=== PATIENT | male | born 1980 | race Caucasian/White ===

== ENCOUNTER 2020-06-09 09:41 | Outpatient (REF) | payer OTHER, SELFPAY | END 2020-06-09 09:42 | disposition home or self-care (01) | LOC: HO.LAB 09:41 | PROVIDERS: Visit Provider Internal Medicine | DX: Z20.822 Contact with and (suspected) exposure to COVID-19 (principal) | CPT/HCPCS: 36415; C9803; U0003 ==

== ENCOUNTER 2021-02-03 04:13 | Emergency (ER) | payer OTHER, SELFPAY ==
[2021-02-03 04:19] VITALS: BP 147/104; BP 170/90; PULSE 60; PULSE 87; RESP 16; TEMP 36.8; O2SAT 100; O2SAT 99; BMI 24.0
--- NOTE | 2021-02-03 04:34 | PC.NURSE ---
Call made to [facility] transfer center at the request of Dr Winn. Transfer center informed me that [facility] is on auto-decline for all patients. At my request, someone from [facility] hand team will be in contact with Dr. Winn.
[2021-02-03 05:11] LABS: Basophils Percent Auto 0.3 % (0-2); Eosinophils Absolute Auto 0.1 X10*3/uL (0.0-0.4); Hemoglobin 8.8 g/dl (14.0-18.0); Imm Gran Abs Auto 0.05 X10*3/uL (0.00-0.03); Imm Gran Pct Auto 0.5 % (0.0-0.4); Lymphocytes Absolute Auto 2.1 X10*3/uL (1.2-4.9); Lymphocytes Percent Auto 21.9 % (20-40); MANUAL DIFF FLAG NO; Mean Corpuscular HGB Conc 33.8 g/dl (31.0-36.0); Mean Corpuscular Hemoglobin 30.9 pg (27.0-33.0); Mean Corpuscular Volume 91.2 fL (80-98); Mean Platelet Volume 8.8 fL (9.4-12.4); Monocytes Absolute Auto 0.7 X10*3/uL (0.1-1.2); Monocytes Percent Auto 7.9 % (2-11); Neutrophils Absolute Auto 6.4 X10*3/uL (2.0-8.3); Neutrophils Percent Auto 68.4 % (45-73); Platelet Count 554 X10*3/uL (160-400); Red Blood Count 2.85 X10*6/uL (4.60-5.80); Red Cell Distribution Width 13.3 % (11.0-16.0); White Blood Count 9.4 X10*3/uL (4.8-10.8)
[2021-02-03 05:16] LABS: Prothrombin Time 11.8 SEC (9.9-13.0)
[2021-02-03 05:28] LABS: Alanine Aminotransferase 45 U/L (0-40); Albumin Level 3.8 g/dL (3.5-5.0); Alkaline Phosphatase 75 U/L (39-117); Anion Gap 13 (12-20); Aspartate Amino Transferase 24 U/L (5-37); Bilirubin Total 0.4 mg/dL (0.0-1.0); Blood Urea Nitrogen 22 mg/dL (9-16); COVID-19 Test Negative (Negative); Calcium 8.9 mg/dL (8.4-10.2); Carbon Dioxide 25 mmol/L (22-29); Chloride 102 mmol/L (96-108); Creatinine Clr Calc Pharmacy 110.3; Estimated Glomerular Filt Rate > 60; Glucose Random 86 mg/dL (60-115); IDNOW Serial# 9DD0AD1C; Potassium 3.9 mmol/L (3.3-5.1); Sodium 136 mmol/L (135-145); Total Protein 6.3 g/dL (6.5-8.0)
[2021-02-03 06:00] VITALS: BP 93/56; PULSE 64; RESP 16; O2SAT 100
--- NOTE | 2021-02-03 06:35 | PC.NURSE ---
Patient's finger is still black but started to pink up in one area. It is also beginning to smell and gases are building up under the skin. Patient to be transferred to [facility] for admission
--- NOTE | 2021-02-03 06:36 | ED.EXTPRO ---
HPI - Extremity Problem General Chief complaint: Extremity Injury, Lower Stated complaint: fingers discolored s/p reattachment Time Seen by Provider: 02/03/21 04:45 Source: patient Mode of arrival: EMS History of Present Illness HPI Narrative: 40-year-old male who presents via EMS with concerns about acute onset of blackness of his middle finger which patient states occurred while he was asleep. Prior history is that patient is fingers were cut off in a traumatic injury involving a table saw and his index and middle finger were reattached at [facility]. Patient states that his course his been going well and that he was discharged yesterday and states that he fell asleep but denies having fallen asleep on the left upper extremity and states that when he woke up he noticed that his middle finger was black in color. He denies any fevers chills. Related Data Allergies Allergy/AdvReac Type Severity Reaction Status Date / Time peanut oil [PEANUT OIL] Allergy Unknown THROAT Unverified 02/06/20 17:54 SWEELING/RASH Review of Systems Review of Systems: Pertinent positives and negatives as stated in HPI 10 point review systems otherwise negative. PMFSH Past Medical History Source: nursing notes reviewed Medical History No known health problems Social History Social History Alcohol intake: unknown Patient Tobacco Use Status: Never used Tobacco Use of substances other than those prescribed or required for medical reasons: Unknown Advance Directives: No Physical Exam Vital Signs: Vital Signs: Last Vital Signs Temp 98.3 F 02/03/21 04:19 Pulse 64 02/03/21 06:00 Resp 16 02/03/21 06:00 BP 93/56 L 02/03/21 06:00 Pulse Ox 100 02/03/21 06:00 Body Mass Index 24.0 VITAL SIGNS: Reviewed. GENERAL: Well developed, well nourished, in no acute distress. HEAD: Normocephalic/atraumatic EYES: PERRLA, EOMI LUNGS: Normal breath sounds. No adventitious sounds or accessory muscle use. SpO2<100> CARDIOVASCULAR: Regular rate and rhythm without noted murmurs ABDOMEN: Soft, non-tender, non-distended with bowel sounds. LEFT HAND: Black discoloration noted at the distal aspect of the left middle phalange with extension proximally to the pain that is in place in the PIP, there is no sensation, unable to evaluate vascular refill, and left index finger otherwise appears pink. NEUROLOGIC: Alert and oriented x 4. Course Course Course Narrative: 40-year-old female with history and clinical presentation consistent with possible loss left middle finger, I discussed this case with Dr. Londono at [facility] who accepts transfer in feels that patient may require amputation. MDM - Extremity (Nontraumatic) Lab Data Result diagrams: 02/03/21 05:05 02/03/21 05:05 Labs: Lab Results 02/03/21 02/03/21 02/03/21 Range/Units 05:05 05:05 05:05 WBC 9.4 (4.8-10.8) X10*3/uL RBC 2.85 L (4.60-5.80) X10*6/uL Hgb 8.8 L (14.0-18.0) g/dl Hct 26.0 L (42-52) % MCV 91.2 (80-98) fL MCH 30.9 (27.0-33.0) pg MCHC 33.8 (31.0-36.0) g/dl RDW 13.3 (11.0-16.0) % Plt Count 554 H (160-400) X10*3/uL MPV 8.8 L (9.4-12.4) fL Immature Gran % (Auto) 0.5 H (0.0-0.4) % Neut % (Auto) 68.4 (45-73) % Lymph % (Auto) 21.9 (20-40) % [place] % (Auto) 7.9 (2-11) % Eos % (Auto) 1.0 (0-4) % Baso % (Auto) 0.3 (0-2) % Lymph # (Auto) 2.1 (1.2-4.9) X10*3/uL [place] # (Auto) 0.7 (0.1-1.2) X10*3/uL Eos # (Auto) 0.1 (0.0-0.4) X10*3/uL Baso # (Auto) 0.0 (0.0-0.2) X10*3/uL Abs Immat Gran (auto) 0.05 H (0.00-0.03) X10*3/uL Absolute Neuts (auto) 6.4 (2.0-8.3) X10*3/uL Absolute Nucleated RBC 0.000 (0.0-0.012) X10*3/uL Nucleated RBC % (auto) 0.0 (0.0-0.2) /100WBC PT 11.8 (9.9-13.0) SEC INR 1.0 (0.9-1.1) Sodium (135-145) mmol/L Potassium (3.3-5.1) mmol/L Chloride (96-108) mmol/L Carbon Dioxide (22-29) mmol/L Anion Gap (12-20) BUN (9-16) mg/dL Creatinine (0.5-1.4) mg/dL Estim Creat Clear Calc Estimated GFR Random Glucose (60-115) mg/dL Calcium (8.4-10.2) mg/dL Total Bilirubin (0.0-1.0) mg/dL AST (5-37) U/L ALT (0-40) U/L Alkaline Phosphatase (39-117) U/L Total Protein (6.5-8.0) g/dL Albumin (3.5-5.0) g/dL COVID-19 (REMIGIO) Negative (Negative) COVID-19 Clin Com See Note 02/03/21 Range/Units 05:05 WBC (4.8-10.8) X10*3/uL RBC (4.60-5.80) X10*6/uL Hgb (14.0-18.0) g/dl Hct (42-52) % MCV (80-98) fL MCH (27.0-33.0) pg MCHC (31.0-36.0) g/dl RDW (11.0-16.0) % Plt Count (160-400) X10*3/uL MPV (9.4-12.4) fL Immature Gran % (Auto) (0.0-0.4) % Neut % (Auto) (45-73) % Lymph % (Auto) (20-40) % [place] % (Auto) (2-11) % Eos % (Auto) (0-4) % Baso % (Auto) (0-2) % Lymph # (Auto) (1.2-4.9) X10*3/uL [place] # (Auto) (0.1-1.2) X10*3/uL Eos # (Auto) (0.0-0.4) X10*3/uL Baso # (Auto) (0.0-0.2) X10*3/uL Abs Immat Gran (auto) (0.00-0.03) X10*3/uL Absolute Neuts (auto) (2.0-8.3) X10*3/uL Absolute Nucleated RBC (0.0-0.012) X10*3/uL Nucleated RBC % (auto) (0.0-0.2) /100WBC PT (9.9-13.0) SEC INR (0.9-1.1) Sodium 136 (135-145) mmol/L Potassium 3.9 (3.3-5.1) mmol/L Chloride 102 (96-108) mmol/L Carbon Dioxide 25 (22-29) mmol/L Anion Gap 13 (12-20) BUN 22 H (9-16) mg/dL Creatinine 0.91 (0.5-1.4) mg/dL Estim Creat Clear Calc 110.3 Estimated GFR > 60 Random Glucose 86 (60-115) mg/dL Calcium 8.9 (8.4-10.2) mg/dL Total Bilirubin 0.4 (0.0-1.0) mg/dL AST 24 (5-37) U/L ALT 45 H (0-40) U/L Alkaline Phosphatase 75 (39-117) U/L Total Protein 6.3 L (6.5-8.0) g/dL Albumin 3.8 (3.5-5.0) g/dL COVID-19 (REMIGIO) (Negative) COVID-19 Clin Com Discharge Plan Discharge Clinical Impression: Necrosis of finger Patient Disposition: er [facility] Transfer Details: Threatened finger graft requiring specialty services
[2021-02-03] MEDS: oxyCODONE HCl Immed Release 5 MG TABLET PO (07:50)
== END 2021-02-03 09:06 | disposition short-term general hospital (02) ==
PROVIDERS: Emergency Provider Student in an Organized Health Care Education/Training Program
DX: M79.645 Pain in left finger(s) (principal); Z20.822 Contact with and (suspected) exposure to COVID-19; Z79.899 Other long term (current) drug therapy
CPT/HCPCS: 36415; 80053; 85025; 85610; 87635; 99285

== ENCOUNTER 2021-06-21 15:48 | Emergency (ER) | payer OTHER, SELFPAY | END 2021-06-21 17:25 | disposition left against medical advice (07) | PROVIDERS: Emergency Provider Emergency Medicine | DX: F99 Mental disorder, not otherwise specified (principal) ==

== ENCOUNTER 2022-12-21 12:03 | Emergency (ER) | payer OTHER, SELFPAY ==
--- NOTE | ~2022-12-21 | XR_ITS ---
EXAMINATION: XR CHEST CLINICAL INFORMATION: Chest pain COMPARISON: 01/17/2017 TECHNIQUE: 2 views of the chest were obtained. FINDINGS: Lungs grossly clear. No pleural effusions. Heart and pulmonary vessels normal. XR/XR chest 2V IMPRESSION: No active disease.
[2022-12-21 12:21] VITALS: BP 114/77; BP 138/95; PULSE 69; PULSE 72; RESP 18; TEMP 35.9; O2SAT 97; O2SAT 98; BMI 24.1
--- NOTE | 2022-12-21 12:29 | ECG_ITS ---
Test Reason : CP Blood Pressure : / mmHG Vent. Rate : 063 BPM Atrial Rate : 063 BPM P-R Int : 116 ms QRS Dur : 098 ms QT Int : 420 ms P-R-T Axes : 078 064 064 degrees QTc Int : 429 ms Normal sinus rhythm ST elevation, consider early repolarization Borderline ECG When compared with ECG of 01-MAY-2019 20:22, No significant change was found Referred By: Gayathri Moseley Electronically Signed By:KAYLEEN HOFF
[2022-12-21 12:52] LABS: MANUAL DIFF FLAG NO
[2022-12-21 12:55] LABS: Basophils Percent Auto 0.6 % (0-2); Eosinophils Absolute Auto 0.2 X10*3/uL (0.0-0.4); Eosinophils Percent Auto 2.7 % (0-4); Hematocrit 43.8 % (42.0-52.0); Hemoglobin 15.1 g/dl (14.0-18.0); Imm Gran Abs Auto 0.03 X10*3/uL (0.00-0.03); Imm Gran Pct Auto 0.5 % (0.0-0.4); Lymphocytes Absolute Auto 1.9 X10*3/uL (1.2-4.9); Lymphocytes Percent Auto 29.6 % (20-40); Mean Corpuscular HGB Conc 34.5 g/dl (31.0-36.0); Mean Corpuscular Hemoglobin 30.5 pg (27.0-33.0); Mean Corpuscular Volume 88.5 fL (80.0-98.0); Mean Platelet Volume 9.9 fL (9.4-12.4); Monocytes Absolute Auto 0.7 X10*3/uL (0.1-1.2); Monocytes Percent Auto 10.7 % (2-11); Neutrophils Absolute Auto 3.5 x10*3/uL (2.0-8.3); Neutrophils Percent Auto 55.9 % (45-73); Platelet Count 348 X10*3/uL (160-400); Red Blood Count 4.95 X10*6/uL (4.60-5.80); White Blood Count 6.3 X10*3/uL (4.8-10.8)
--- NOTE | 2022-12-21 13:06 | ED_ITS ---
HPI - General Adult General Chief complaint: General Medical Stated complaint: BODY PAIN/CRAMPS S/P 2TICK BITE 1 WK AGO PER EMS Time Seen by Provider: 12/21/22 16:59 Related Data Previous Rx's Medication Instructions Recorded gabapentin 800 mg tablet 800 mg PO TID #90 tabs 10/27/22 quetiapine 150 mg tablet,extended 150 mg PO BEDTIME #90 tabs 10/27/22 release 24 hr (Seroquel XR) clonazepam 1 mg tablet (Klonopin) 1 mg PO BEDTIME #30 tabs 11/18/22 Allergies Allergy/AdvReac Type Severity Reaction Status Date / Time adhesive tape Allergy Intermediate Hives Verified 12/21/22 12:24 trazodone Allergy Mild Hallucinati Verified 12/21/22 12:24 ons nabumetone AdvReac Intermediate blood in Verified 12/21/22 12:24 stool PMFSH Past Medical History Medical History No known health problems Surgical History History of dental surgery History of hand surgery History of lung surgery Family History Family History Mother Substance use disorder Father Substance use disorder Other Mental health disorder Social History Social History Housing: Other Alcohol intake: current Alcohol intake frequency: holidays/special occasions only Patient Tobacco Use Status: Current everyday Tobacco user Tobacco use type: Cigarette Cigarettes Per Day: 2 e-Cigarette/Vaping Use: Never Used Second Hand Smoke Exposure: Yes Substance Use Type: Marijuana Advance Directives: No Advance Directives Information Provided: No service: No Current occupational status: unemployed Cognitive needs: No Hearing needs: No Vision needs: No Physical Exam ED Vital Signs: Vital Signs - 24 hr 12/21/22 12:21 Temperature 96.7 F L Pulse Rate 69 Respiratory Rate 18 Blood Pressure 114/77 Pulse Oximetry 97 Oxygen Delivery Method Room Air BMI result Body Mass Index 24.1 Course Course Course Narrative: This is an RME: Additional HPI, ROS, PE not included below will be deferred to primary provider. This is a 82-woiy-eht-male with no known medical problems, presenting to the emergency department with complaints of body cramping and body pain x 3 days. He reports that he was bit by a tick 2 weeks ago. Works outside in the heat. Endorsing chest pain. No SOB. Plan: Labs, EKG, Chest xray ordered. Reevaluation(s) Reevaluation #1: Patient eloped prior to being fully evaluated by primary provider in the main emergency department. Medical Decision Making Lab Data 12/21/22 12:46 12/21/22 12:46 Labs: Lab Results 12/21/22 12/21/22 12/21/22 Range/Units 12:46 12:46 12:46 WBC 6.3 (4.8-10.8) X10*3/uL RBC 4.95 (4.60-5.80) X10*6/uL Hgb 15.1 (14.0-18.0) g/dl Hct 43.8 (42.0-52.0) % MCV 88.5 (80.0-98.0) fL MCH 30.5 (27.0-33.0) pg MCHC 34.5 (31.0-36.0) g/dl RDW 12.0 (11.0-16.0) % Plt Count 348 (160-400) X10*3/uL MPV 9.9 (9.4-12.4) fL Immature Gran % (Auto) 0.5 H (0.0-0.4) % Neut % (Auto) 55.9 (45-73) % Lymph % (Auto) 29.6 (20-40) % [place] % (Auto) 10.7 (2-11) % Eos % (Auto) 2.7 (0-4) % Baso % (Auto) 0.6 (0-2) % Lymph # (Auto) 1.9 (1.2-4.9) X10*3/uL [place] # (Auto) 0.7 (0.1-1.2) X10*3/uL Eos # (Auto) 0.2 (0.0-0.4) X10*3/uL Baso # (Auto) 0.0 (0.0-0.2) X10*3/uL Abs Immat Gran (auto) 0.03 (0.00-0.03) X10*3/uL Absolute Neuts (auto) 3.5 (2.0-8.3) x10*3/uL Absolute Nucleated RBC 0.000 (0.0-0.012) X10*3/uL Nucleated RBC % (auto) 0.0 (0.0-0.2) /100WBC Sodium 139 (135-145) mmol/L Potassium 4.0 (3.3-5.1) mmol/L Chloride 106 (96-108) mmol/L Carbon Dioxide 20 L (22-29) mmol/L Anion Gap 17 (12-20) BUN 27 H (9-16) mg/dL Creatinine 1.14 (0.5-1.4) mg/dL Estim Creat Clear Calc 83.5 Estimated GFR > 60 Random Glucose 99 (60-115) mg/dL Calcium 9.2 (8.4-10.2) mg/dL Total Bilirubin 0.7 (0.0-1.0) mg/dL Direct Bilirubin 0.2 (0.0-0.5) mg/dL AST 52 H (5-37) U/L ALT 24 (0-40) U/L Alkaline Phosphatase 94 (39-117) U/L Total Creatine Kinase 1445 H (38-174) U/L Troponin I High Sens < 2.7 (<3.5-35.0) ng/L Total Protein 7.3 (6.5-8.0) g/dL Albumin 4.3 (3.5-5.0) g/dL Lyme Screen IgG & IgM index Lyme Progressive Test 12/21/22 Range/Units 12:46 WBC (4.8-10.8) X10*3/uL RBC (4.60-5.80) X10*6/uL Hgb (14.0-18.0) g/dl Hct (42.0-52.0) % MCV (80.0-98.0) fL MCH (27.0-33.0) pg MCHC (31.0-36.0) g/dl RDW (11.0-16.0) % Plt Count (160-400) X10*3/uL MPV (9.4-12.4) fL Immature Gran % (Auto) (0.0-0.4) % Neut % (Auto) (45-73) % Lymph % (Auto) (20-40) % [place] % (Auto) (2-11) % Eos % (Auto) (0-4) % Baso % (Auto) (0-2) % Lymph # (Auto) (1.2-4.9) X10*3/uL [place] # (Auto) (0.1-1.2) X10*3/uL Eos # (Auto) (0.0-0.4) X10*3/uL Baso # (Auto) (0.0-0.2) X10*3/uL Abs Immat Gran (auto) (0.00-0.03) X10*3/uL Absolute Neuts (auto) (2.0-8.3) x10*3/uL Absolute Nucleated RBC (0.0-0.012) X10*3/uL Nucleated RBC % (auto) (0.0-0.2) /100WBC Sodium (135-145) mmol/L Potassium (3.3-5.1) mmol/L Chloride (96-108) mmol/L Carbon Dioxide (22-29) mmol/L Anion Gap (12-20) BUN (9-16) mg/dL Creatinine (0.5-1.4) mg/dL Estim Creat Clear Calc Estimated GFR Random Glucose (60-115) mg/dL Calcium (8.4-10.2) mg/dL Total Bilirubin (0.0-1.0) mg/dL Direct Bilirubin (0.0-0.5) mg/dL AST (5-37) U/L ALT (0-40) U/L Alkaline Phosphatase (39-117) U/L Total Creatine Kinase (38-174) U/L Troponin I High Sens (<3.5-35.0) ng/L Total Protein (6.5-8.0) g/dL Albumin (3.5-5.0) g/dL Lyme Screen IgG & IgM <0.90 index Lyme Progressive Test TNP Discharge Plan Discharge Clinical Impression: Myalgia Patient Disposition: Elopement Prescriptions: No Action gabapentin 800 mg tablet 800 mg PO TID Qty: 90 0RF quetiapine [Seroquel XR] 150 mg tablet extended release 24 hr 150 mg PO BEDTIME Qty: 90 0RF clonazepam [Klonopin] 1 mg tablet 1 mg PO BEDTIME Qty: 30 0RF Rx Instructions: administer 30 minutes before bedtime Interventions: ED Discharge Assessment Last Done: 12/21/22 17:58 Discharge Date/Time: 12/21/22 17:58
[2022-12-21 13:08] LABS: Alanine Aminotransferase 24 U/L (0-40); Albumin Level 4.3 g/dL (3.5-5.0); Alkaline Phosphatase 94 U/L (39-117); Anion Gap 17 (12-20); Aspartate Amino Transferase 52 U/L (5-37); Bilirubin Direct 0.2 mg/dL (0.0-0.5); Bilirubin Total 0.7 mg/dL (0.0-1.0); Blood Urea Nitrogen 27 mg/dL (9-16); Calcium 9.2 mg/dL (8.4-10.2); Carbon Dioxide 20 mmol/L (22-29); Chloride 106 mmol/L (96-108); Creatinine Clr Calc Pharmacy 83.5; Estimated Glomerular Filt Rate > 60; Glucose Random 99 mg/dL (60-115); Sodium 139 mmol/L (135-145); Total Protein 7.3 g/dL (6.5-8.0)
[2022-12-21 13:18] LABS: Troponin-I High Sensitivity < 2.7 ng/L (<3.5-35.0)
[2022-12-23 03:28] LABS: Lyme Abs Screen <0.90 index
[2022-12-28 12:28] LABS: Babesia IgG <1:64 titer (<1:64); Babesia IgM <1:20 titer (<1:20)
[2023-01-04 13:04] LABS: A. Phagocytophilum Ab IgG <1:64 (<1:64); A. Phagocytophilum Ab IgM <1:20 (<1:20); E. Chaffeensis Ab IgG <1:64 (<1:64); E. Chaffeensis Ab IgM <1:20 (<1:20)
== END 2022-12-21 17:58 | disposition left against medical advice (07) ==
PROVIDERS: Physician Assistant Medical; Emergency Provider Emergency Medicine
DX: R07.89 Other chest pain (principal); M79.10 Myalgia, unspecified site; F17.210 Nicotine dependence, cigarettes, uncomplicated; Z71.6 Tobacco abuse counseling; Z79.899 Other long term (current) drug therapy
CPT/HCPCS: 36415; 71046; 80048; 80076; 82550; 84484; 85025; 86617; 86618; 86666; 86753; 93005; 99283

== ENCOUNTER → 2022-12-21 12:29 | Outpatient (BNV) | payer OTHER, SELFPAY | PROVIDERS: Emergency Provider Emergency Medicine; Visit Provider Internal Medicine | DX: R07.9 Chest pain, unspecified (principal); R94.31 Abnormal electrocardiogram [ECG] [EKG] | CPT/HCPCS: 93010 ==

== ENCOUNTER 2023-01-24 18:25 | Emergency (ER) | payer OTHER, SELFPAY ==
--- NOTE | ~2023-01-24 | CT_ITS ---
EXAMINATION: CT HEAD WITHOUT CONTRAST CLINICAL INFORMATION: Syncope COMPARISON: None available. TECHNIQUE: Contiguous axial imaging was performed from the skull base to vertex without intravenous administration of contrast. This CT examination was performed using dose optimization techniques as appropriate, variously including the following: *Automated exposure control *Adjustment of mA and/or kV according to patient size (this includes techniques or standardized protocols for targeted exams where dose is matched to indication/reason for exam; i.e. extremities or head) *Use of iterative reconstruction technique DLP: 673 mGy-cm FINDINGS: The brain parenchyma has normal attenuation. The escobar-white matter differentiation is well preserved. No evidence of an acute major vascular territory infarction. No intracranial hemorrhage, extra-axial fluid collection, focal mass effect or midline shift. The ventricles have normal size and configuration; no hydrocephalus. The brainstem and cerebellum have a normal appearance. The cerebellar tonsils are in normal position. The calvarium is intact. The visualized paranasal sinuses, mastoid air cells and middle ear cavities are well aerated. The orbits and globes are unremarkable. The temporomandibular joints are normal. CT/CT head/brain wo IV con IMPRESSION: No acute intracranial pathology.
[2023-01-24 18:51] VITALS: BP 162/90; PULSE 88; RESP 18; TEMP 36.9; O2SAT 96; BMI 24.5
--- NOTE | 2023-01-24 18:51 | ED_ITS ---
HPI - General Adult General Chief complaint: Syncope Stated complaint: loc today doing yard work Time Seen by Provider: 01/24/23 20:32 Source: patient Mode of arrival: ambulatory Limitations: no limitations History of Present Illness HPI narrative: patient with history of anxiety, depression with strong family history of seizures but patient never had any seizure was mowing the yd outside for last 3 hours at the end of the moving patient was standing felt lightheaded blurred vision nauseated vomited small amount and then passed out no seizure activity were noticed patient was confused after the passing out episode patient had similar episode a month ago that time patient had elevated CPK with allergic and dizziness not completely passing out patient says drinking water every day and pretty well hydrated does complain of slight leg cramps. Lab workup prior to my evaluation showed elevated BUN 31 creatinine 2.9 CPK of 293 and positive orthostatics patient denies any chest pain or palpitation Related Data Previous Rx's Medication Instructions Recorded quetiapine 150 mg tablet,extended 150 mg PO BEDTIME #90 tabs 10/27/22 release 24 hr (Seroquel XR) clonazepam 1 mg tablet (Klonopin) 1 mg PO BEDTIME #30 tabs 11/18/22 gabapentin 800 mg tablet 800 mg PO TID #90 tabs 12/27/22 Allergies Allergy/AdvReac Type Severity Reaction Status Date / Time adhesive tape Allergy Intermediate Hives Verified 01/24/23 18:51 trazodone Allergy Mild Hallucinati Verified 01/24/23 18:51 ons nabumetone AdvReac Intermediate blood in Verified 01/24/23 18:51 stool Review of Systems 2 Review of Systems: Yes all other systems are reviewed and are negative [facility] Past Medical History Medical History No known health problems Surgical History History of dental surgery History of hand surgery History of lung surgery Family History Family History Mother Substance use disorder Father Substance use disorder Other Mental health disorder Social History Social History Housing: Other Alcohol intake: unknown Patient Tobacco Use Status: Current everyday Tobacco user Tobacco use type: Cigarette Cigarettes Per Day: 2 e-Cigarette/Vaping Use: Never Used Second Hand Smoke Exposure: Yes Substance Use Type: Marijuana Advance Directives: No Advance Directives Information Provided: Yes service: No Current occupational status: unemployed Cognitive needs: No Hearing needs: No Vision needs: No Physical Exam ED Vital Signs: Vital Signs - 24 hr 01/24/23 18:51 01/24/23 20:05 01/24/23 20:07 Temperature 98.5 F 98.0 F Pulse Rate 88 70 75 Respiratory Rate 18 14 Blood Pressure 162/90 H 150/99 H 150/99 H Pulse Oximetry 96 98 Oxygen Delivery Method Room Air Room Air 01/24/23 20:07 01/24/23 20:07 01/24/23 22:55 Temperature 97.7 F Pulse Rate 76 94 76 Respiratory Rate 18 Blood Pressure 135/90 H 108/82 146/76 H Pulse Oximetry 97 Oxygen Delivery Method Room Air BMI result Body Mass Index 24.5 Appearance: Alert. Oriented X3. No acute distress. Eyes: PERRLA, No Nystagmus ENT: Pharynx normal. Oral Mucosa moist Neck: Normal inspection. Neck supple. no midline tenderness CVS: Normal heart rate and rhythm. Pulses normal. Respiratory: No respiratory distress. Equal air entry bilateral, no wheezing/rales/rhonchi Abdomen: Soft and nontender. Bowel sounds are present, no mass palpable, no CVA tenderness Skin: Skin warm and dry. Normal skin color. Normal skin turgor. Extremities: No lower extremity edema. No calf tenderness Neuro: Oriented X 3. No motor deficit. No sensory deficit.No cerebellar signs , cranial nerves II-XII intact Course Course Course Narrative: This is an RME: Additional HPI, ROS, PE not included below will be deferred to primary provider. 42 year old male with syncopal episode. He reports before the episode he became sensitive to light and everything in his vision got red before falling to the ground. Plan: labs, urine, ekg, imaging Medications Administered Discontinued Medications Generic Name Dose Route Start Last Admin Trade Name Freq PRN Reason Stop Dose Admin Sodium Chloride 1,000 mls @ 999 mls/hr 01/24/23 21:18 01/24/23 22:51 Ns IV 01/24/23 22:18 Infused .Q1H1M ONE Infusion Sodium Chloride 1,000 mls @ 999 mls/hr 01/24/23 22:52 01/25/23 00:15 Ns IV 01/24/23 23:52 Infused .Q1H1M ONE Infusion Medical Decision Making Medical Decision Making [facility] Narrative: patient's syncope episode with positive orthostatics and elevated creatinine and likely dehydration heat exhaustion patient received 2 L of normal saline creatinine improved to 2 patient urinated 3 times in the ER feeling much better prefer to go home and will follow-up with PCP patient advised not to take any NSAID and drink plenty of fluids and see the PCP next 3 days Differential Diagnosis Differential Diagnoses: The differential diagnosis associated with the presentation includes heat exhaustion/dehydration/ rhabdomyolysis/ seizure /vasovagal /WILLIAM Admission/Observation Consideration of admission/observation: Escalation of care including admission/observation considered Lab Data [facility] Lab Attestation statement: I reviewed the patient's lab results. 01/24/23 19:09 01/24/23 19:09 Labs: Lab Results 01/24/23 01/24/23 01/24/23 Range/Units 19:09 19:09 19:09 WBC 15.5 H (4.8-10.8) X10*3/uL RBC 5.87 H (4.60-5.80) X10*6/uL Hgb 17.7 (14.0-18.0) g/dl Hct 51.7 (42.0-52.0) % MCV 88.1 (80.0-98.0) fL MCH 30.2 (27.0-33.0) pg MCHC 34.2 (31.0-36.0) g/dl RDW 12.0 (11.0-16.0) % Plt Count 409 H (160-400) X10*3/uL MPV 10.1 (9.4-12.4) fL Immature Gran % (Auto) 0.4 (0.0-0.4) % Neut % (Auto) 78.2 H (45-73) % Lymph % (Auto) 14.2 L (20-40) % [place] % (Auto) 6.5 (2-11) % Eos % (Auto) 0.4 (0-4) % Baso % (Auto) 0.3 (0-2) % Lymph # (Auto) 2.2 (1.2-4.9) X10*3/uL [place] # (Auto) 1.0 (0.1-1.2) X10*3/uL Eos # (Auto) 0.1 (0.0-0.4) X10*3/uL Baso # (Auto) 0.1 (0.0-0.2) X10*3/uL Abs Immat Gran (auto) 0.06 H (0.00-0.03) X10*3/uL Absolute Neuts (auto) 12.1 H (2.0-8.3) x10*3/uL Absolute Nucleated RBC 0.000 (0.0-0.012) X10*3/uL Nucleated RBC % (auto) 0.0 (0.0-0.2) /100WBC D-Dimer High Sensitivty < 150 NG/ML Sodium 136 (135-145) mmol/L Potassium 4.7 (3.3-5.1) mmol/L Chloride 99 (96-108) mmol/L Carbon Dioxide 22 (22-29) mmol/L Anion Gap 20 (12-20) BUN 31 H (9-16) mg/dL Creatinine 2.90 H (0.5-1.4) mg/dL Estim Creat Clear Calc 32.8 Estimated GFR 24 Random Glucose 122 H (60-115) mg/dL Calcium 11.5 H D (8.4-10.2) mg/dL Magnesium 2.2 (1.6-2.6) mg/dL Total Bilirubin 1.1 H (0.0-1.0) mg/dL AST 37 (5-37) U/L ALT 32 (0-40) U/L Alkaline Phosphatase 120 H (39-117) U/L Total Creatine Kinase 293 H (38-174) U/L Troponin I High Sens (<3.5-35.0) ng/L Total Protein 9.7 H (6.5-8.0) g/dL Albumin 5.6 H (3.5-5.0) g/dL Urine Color Urine Appearance Urine pH (5.0-9.0) Ur Specific [place] (1.005-1.025) Urine Protein (Neg-Trace) mg/dL Urine Glucose (UA) (Negative) mg/dL Urine Ketones (Negative) mg/dL Urine Blood (Negative) Urine Nitrite (Negative) Ur Leukocyte Esterase (Negative) Urine RBC (0-2) /HPF Urine WBC (0-5) /HPF Ur Squamous Epith Cells (0-2) /HPF Calcium Oxalate Crystal Urine Bacteria (None Seen) Hyaline Casts (0-2) /LPF 01/24/23 01/24/23 01/24/23 Range/Units 19:09 22:52 23:56 WBC 9.9 (4.8-10.8) X10*3/uL RBC 4.76 (4.60-5.80) X10*6/uL Hgb 14.7 (14.0-18.0) g/dl Hct 42.1 (42.0-52.0) % MCV 88.4 (80.0-98.0) fL MCH 30.9 (27.0-33.0) pg MCHC 34.9 (31.0-36.0) g/dl RDW 12.1 (11.0-16.0) % Plt Count 317 (160-400) X10*3/uL MPV 10.3 (9.4-12.4) fL Immature Gran % (Auto) 0.4 (0.0-0.4) % Neut % (Auto) 59.8 (45-73) % Lymph % (Auto) 28.6 (20-40) % [place] % (Auto) 9.2 (2-11) % Eos % (Auto) 1.6 (0-4) % Baso % (Auto) 0.4 (0-2) % Lymph # (Auto) 2.8 (1.2-4.9) X10*3/uL [place] # (Auto) 0.9 (0.1-1.2) X10*3/uL Eos # (Auto) 0.2 (0.0-0.4) X10*3/uL Baso # (Auto) 0.0 (0.0-0.2) X10*3/uL Abs Immat Gran (auto) 0.04 H (0.00-0.03) X10*3/uL Absolute Neuts (auto) 5.9 (2.0-8.3) x10*3/uL Absolute Nucleated RBC 0.000 (0.0-0.012) X10*3/uL Nucleated RBC % (auto) 0.0 (0.0-0.2) /100WBC D-Dimer High Sensitivty NG/ML Sodium (135-145) mmol/L Potassium (3.3-5.1) mmol/L Chloride (96-108) mmol/L Carbon Dioxide (22-29) mmol/L Anion Gap (12-20) BUN (9-16) mg/dL Creatinine (0.5-1.4) mg/dL Estim Creat Clear Calc Estimated GFR Random Glucose (60-115) mg/dL Calcium (8.4-10.2) mg/dL Magnesium (1.6-2.6) mg/dL Total Bilirubin (0.0-1.0) mg/dL AST (5-37) U/L ALT (0-40) U/L Alkaline Phosphatase (39-117) U/L Total Creatine Kinase (38-174) U/L Troponin I High Sens < 2.7 (<3.5-35.0) ng/L Total Protein (6.5-8.0) g/dL Albumin (3.5-5.0) g/dL Urine Color Dark Yellow Urine Appearance Clear Urine pH 5.0 (5.0-9.0) Ur Specific [place] 1.020 (1.005-1.025) Urine Protein Trace (Neg-Trace) mg/dL Urine Glucose (UA) Negative (Negative) mg/dL Urine Ketones Trace (Negative) mg/dL Urine Blood Trace H (Negative) Urine Nitrite Negative (Negative) Ur Leukocyte Esterase Negative (Negative) Urine RBC 11-20 H (0-2) /HPF Urine WBC 0-5 (0-5) /HPF Ur Squamous Epith Cells 0-2 (0-2) /HPF Calcium Oxalate Crystal Present Urine Bacteria None Seen (None Seen) Hyaline Casts 11-20 (0-2) /LPF 01/24/23 01/25/23 Range/Units 23:56 00:45 WBC (4.8-10.8) X10*3/uL RBC (4.60-5.80) X10*6/uL Hgb (14.0-18.0) g/dl Hct (42.0-52.0) % MCV (80.0-98.0) fL MCH (27.0-33.0) pg MCHC (31.0-36.0) g/dl RDW (11.0-16.0) % Plt Count (160-400) X10*3/uL MPV (9.4-12.4) fL Immature Gran % (Auto) (0.0-0.4) % Neut % (Auto) (45-73) % Lymph % (Auto) (20-40) % [place] % (Auto) (2-11) % Eos % (Auto) (0-4) % Baso % (Auto) (0-2) % Lymph # (Auto) (1.2-4.9) X10*3/uL [place] # (Auto) (0.1-1.2) X10*3/uL Eos # (Auto) (0.0-0.4) X10*3/uL Baso # (Auto) (0.0-0.2) X10*3/uL Abs Immat Gran (auto) (0.00-0.03) X10*3/uL Absolute Neuts (auto) (2.0-8.3) x10*3/uL Absolute Nucleated RBC (0.0-0.012) X10*3/uL Nucleated RBC % (auto) (0.0-0.2) /100WBC D-Dimer High Sensitivty NG/ML Sodium Cancelled 141 (135-145) mmol/L Potassium Cancelled 3.7 D (3.3-5.1) mmol/L Chloride Cancelled 107 (96-108) mmol/L Carbon Dioxide Cancelled 25 (22-29) mmol/L Anion Gap Cancelled 13 (12-20) BUN Cancelled 29 H (9-16) mg/dL Creatinine Cancelled 2.06 H (0.5-1.4) mg/dL Estim Creat Clear Calc Cancelled 46.2 Estimated GFR Cancelled 35 Random Glucose Cancelled 103 (60-115) mg/dL Calcium Cancelled 9.3 D (8.4-10.2) mg/dL Magnesium (1.6-2.6) mg/dL Total Bilirubin Cancelled 0.4 (0.0-1.0) mg/dL AST Cancelled 22 (5-37) U/L ALT Cancelled 21 (0-40) U/L Alkaline Phosphatase Cancelled 95 (39-117) U/L Total Creatine Kinase (38-174) U/L Troponin I High Sens (<3.5-35.0) ng/L Total Protein Cancelled 6.7 (6.5-8.0) g/dL Albumin Cancelled 4.1 (3.5-5.0) g/dL Urine Color Urine Appearance Urine pH (5.0-9.0) Ur Specific [place] (1.005-1.025) Urine Protein (Neg-Trace) mg/dL Urine Glucose (UA) (Negative) mg/dL Urine Ketones (Negative) mg/dL Urine Blood (Negative) Urine Nitrite (Negative) Ur Leukocyte Esterase (Negative) Urine RBC (0-2) /HPF Urine WBC (0-5) /HPF Ur Squamous Epith Cells (0-2) /HPF Calcium Oxalate Crystal Urine Bacteria (None Seen) Hyaline Casts (0-2) /LPF Independent Interpretation I performed an independent interpretation of an: EKG Interpretation: normal sinus rhythm heart rate 82 beats per minute LVH early repolarization no acute ST-T changes no acute ischemia Critical Care Time Critical Care Time Critical Care Time: Yes Total Critical Care Time: 55 Attestation: The patient was critically ill with a high probability of imminent or life threatening deterioration. I spent greater than 60 minutes of discontinuous time evaluating the patient,delivering critical care at the bedside, discussing and evaluating pertinent data with consultants. Critical care time does not include time spent performing separately billable procedures or teaching. Total time spent performing critical care was 55 minutes. Discharge Plan Discharge Clinical Impression: Vasovagal syncope, Acute renal failure due to rhabdomyolysis Patient Disposition: Home, Self-Care Instructions: Acute Kidney Injury (DC), Syncope (ED), Rhabdomyolysis (ED) Additional Instructions: drink plenty of fluids for next few days stop doing any strenuous activities for now follow with PCP in next 3 days to recheck your kidney functions report to the ER if recurrence of syncope episode Prescriptions: No Action quetiapine [Seroquel XR] 150 mg tablet extended release 24 hr 150 mg PO BEDTIME Qty: 90 0RF clonazepam [Klonopin] 1 mg tablet 1 mg PO BEDTIME Qty: 30 0RF Rx Instructions: administer 30 minutes before bedtime gabapentin 800 mg tablet 800 mg PO TID Qty: 90 0RF
--- NOTE | 2023-01-24 18:53 | ECG_ITS ---
Test Reason : SYNCOPE Blood Pressure : / mmHG Vent. Rate : 082 BPM Atrial Rate : 082 BPM P-R Int : 132 ms QRS Dur : 090 ms QT Int : 358 ms P-R-T Axes : 079 060 067 degrees QTc Int : 418 ms Normal sinus rhythm Biatrial enlargement Minimal voltage criteria for LVH, may be normal variant ( Sokolow-Goff ) Early repolarization Abnormal ECG When compared with ECG of 21-DEC-2022 12:39, No significant change was found Referred By: Mara Birch Electronically Signed By:ILYA BANUELOS
[2023-01-24 19:15] LABS: MANUAL DIFF FLAG NO
[2023-01-24 19:16] LABS: Basophils Absolute Auto 0.1 X10*3/uL (0.0-0.2); Basophils Percent Auto 0.3 % (0-2); Eosinophils Absolute Auto 0.1 X10*3/uL (0.0-0.4); Eosinophils Percent Auto 0.4 % (0-4); Hematocrit 51.7 % (42.0-52.0); Hemoglobin 17.7 g/dl (14.0-18.0); Imm Gran Abs Auto 0.06 X10*3/uL (0.00-0.03); Imm Gran Pct Auto 0.4 % (0.0-0.4); Lymphocytes Absolute Auto 2.2 X10*3/uL (1.2-4.9); Lymphocytes Percent Auto 14.2 % (20-40); Mean Corpuscular HGB Conc 34.2 g/dl (31.0-36.0); Mean Corpuscular Hemoglobin 30.2 pg (27.0-33.0); Mean Corpuscular Volume 88.1 fL (80.0-98.0); Mean Platelet Volume 10.1 fL (9.4-12.4); Monocytes Percent Auto 6.5 % (2-11); Neutrophils Absolute Auto 12.1 x10*3/uL (2.0-8.3); Neutrophils Percent Auto 78.2 % (45-73); Platelet Count 409 X10*3/uL (160-400); Red Blood Count 5.87 X10*6/uL (4.60-5.80); White Blood Count 15.5 X10*3/uL (4.8-10.8)
--- NOTE | 2023-01-24 19:38 | PC.NURSE ---
pt in waiting room drinking gator aide with no difficutly at this time. pt alert oriented.
[2023-01-24 19:44] LABS: Alanine Aminotransferase 32 U/L (0-40); Albumin Level 5.6 g/dL (3.5-5.0); Alkaline Phosphatase 120 U/L (39-117); Anion Gap 20 (12-20); Aspartate Amino Transferase 37 U/L (5-37); Bilirubin Total 1.1 mg/dL (0.0-1.0); Blood Urea Nitrogen 31 mg/dL (9-16); Calcium 11.5 mg/dL (8.4-10.2); Carbon Dioxide 22 mmol/L (22-29); Chloride 99 mmol/L (96-108); Creatinine Clr Calc Pharmacy 32.8; Estimated Glomerular Filt Rate 24; Glucose Random 122 mg/dL (60-115); Magnesium 2.2 mg/dL (1.6-2.6); Potassium 4.7 mmol/L (3.3-5.1); Sodium 136 mmol/L (135-145); Total Protein 9.7 g/dL (6.5-8.0)
[2023-01-24 19:59] LABS: Troponin-I High Sensitivity < 2.7 ng/L (<3.5-35.0)
[2023-01-24 20:05] VITALS: BP 150/99; PULSE 70; RESP 14; TEMP 36.7; O2SAT 98
[2023-01-24 20:07] VITALS: BP 108/82; BP 135/90; BP 150/99; PULSE 75; PULSE 76; PULSE 94
[2023-01-24 20:14] LABS: D Dimer High Sensitivity < 150 NG/ML
[2023-01-24] MEDS: 0.9 % Sodium Chloride 1,000 ML 999 ML IV ×2 (21:18→23:02)
[2023-01-24 22:55] VITALS: BP 146/76; PULSE 76; RESP 18; TEMP 36.5; O2SAT 97
[2023-01-24 23:01] LABS: Appearance Urine Clear; Color Urine Dark Yellow; Glucose Urine UA Negative (Negative); Leukocyte Esterase Urine Negative (Negative); Nitrite Urine Negative (Negative); UMIC TRIGGER UACC YES; Urine Blood Trace (Negative); Urine Ketones Trace mg/dL (Negative); Urine Protein Trace mg/dL (Neg-Trace)
[2023-01-24 23:17] LABS: Bacteria Urine None Seen (None Seen); Calcium Oxalate Crystals Urine Present; Squamous Epithelial Cell Urine 0-2 /HPF (0-2); WBC Urine 0-5 /HPF (0-5)
[2023-01-25 00:07] LABS: MANUAL DIFF FLAG NO
[2023-01-25 00:08] LABS: Basophils Percent Auto 0.4 % (0-2); Eosinophils Absolute Auto 0.2 X10*3/uL (0.0-0.4); Eosinophils Percent Auto 1.6 % (0-4); Hematocrit 42.1 % (42.0-52.0); Hemoglobin 14.7 g/dl (14.0-18.0); Imm Gran Abs Auto 0.04 X10*3/uL (0.00-0.03); Imm Gran Pct Auto 0.4 % (0.0-0.4); Lymphocytes Absolute Auto 2.8 X10*3/uL (1.2-4.9); Lymphocytes Percent Auto 28.6 % (20-40); Mean Corpuscular HGB Conc 34.9 g/dl (31.0-36.0); Mean Corpuscular Hemoglobin 30.9 pg (27.0-33.0); Mean Corpuscular Volume 88.4 fL (80.0-98.0); Mean Platelet Volume 10.3 fL (9.4-12.4); Monocytes Absolute Auto 0.9 X10*3/uL (0.1-1.2); Monocytes Percent Auto 9.2 % (2-11); Neutrophils Absolute Auto 5.9 x10*3/uL (2.0-8.3); Neutrophils Percent Auto 59.8 % (45-73); Platelet Count 317 X10*3/uL (160-400); Red Blood Count 4.76 X10*6/uL (4.60-5.80); Red Cell Distribution Width 12.1 % (11.0-16.0); White Blood Count 9.9 X10*3/uL (4.8-10.8)
[2023-01-25 01:23] LABS: Alanine Aminotransferase 21 U/L (0-40); Albumin Level 4.1 g/dL (3.5-5.0); Alkaline Phosphatase 95 U/L (39-117); Anion Gap 13 (12-20); Aspartate Amino Transferase 22 U/L (5-37); Bilirubin Total 0.4 mg/dL (0.0-1.0); Blood Urea Nitrogen 29 mg/dL (9-16); Calcium 9.3 mg/dL (8.4-10.2); Carbon Dioxide 25 mmol/L (22-29); Chloride 107 mmol/L (96-108); Creatinine Clr Calc Pharmacy 46.2; Estimated Glomerular Filt Rate 35; Glucose Random 103 mg/dL (60-115); Potassium 3.7 mmol/L (3.3-5.1); Sodium 141 mmol/L (135-145); Total Protein 6.7 g/dL (6.5-8.0)
== END 2023-01-25 01:52 | disposition home or self-care (01) ==
PROVIDERS: Physician Assistant; Emergency Provider Internal Medicine
DX: R55 Syncope and collapse (principal); M62.82 Rhabdomyolysis; R94.31 Abnormal electrocardiogram [ECG] [EKG]; Z79.899 Other long term (current) drug therapy
CPT/HCPCS: 36415; 70450; 80053; 81001; 81003; 82550; 83735; 84484; 85025; 85379; 93005; 96360; 96361; 99284; 99285

== ENCOUNTER 2023-01-27 15:27 | Outpatient (AMB) | payer OTHER, SELFPAY ==
[2023-01-27 15:36] VITALS: BP 118/90; PULSE 91; O2SAT 95; BMI 24.9
--- NOTE | 2023-01-27 15:36 | A.OFFPC_ITS ---
Vital Signs 01/27/23 15:36 Height 5 ft 9 in Weight 168 lb 6 oz BMI 24.9 BP 118/90 H Blood Pressure Location Lt brachial Position Sitting Pulse 91 Pulse Source Pulse Oximeter Pulse Oximetry (%) 95 Oxygen Delivery Method Room Air Intake Visit Reasons: [facility] [place] ED 01/25/23 Restaurant Cashier Required: No Accompanied by: Self / Same As Patient Allergies adhesive tape Allergy (Intermediate, Verified 01/29/23 22:03) Hives trazodone Allergy (Mild, Verified 01/29/23 22:03) Hallucinations nabumetone Adverse Reaction (Intermediate, Verified 01/29/23 22:03) blood in stool Medication List - Last Reconciled 01/29/23 by Boni Swann MD clonazepam (Klonopin) 1 mg PO BEDTIME gabapentin 800 mg PO TID quetiapine ER (Seroquel XR) 150 mg PO BEDTIME Tobacco use date assessed: 01/27/23 Dental Screening Dental Screen Date: 01/27/23 Did you have a dental visit in the last 12 months?: No Did you have a dental problem in the last 6 months where you did not have access to dental care?: No Was dental information given to patient?: No HPI [facility] [place] ED 01/25/23 HPI Details Patient comes in today for his HDF follow up visit Patient went to the ER for evaluation 3 days ago after he reportedly passed out after mowing his yard for reportedly about 3 hours Recalls that he suddenly felt very lightheaded with blurring of vision, nausea and states that he also threw up after coming in for from mowing his yard He recalls that it was very hot that day when he was out mowing Recalls experiencing another similar incident about a month ago - states that he was also experiencing some leg cramps at the time States that he made sure that he was drinking plenty of fluids while he was outside as he is aware of the dangers of dehydration but this apparently did not help him - feels that the fluids that he drinks just flushes through him and he cannot seem to retain it Labs done at the ER revealed a serum creatinine of 2.9, CPK of 293 and a very low GFR of 24 The rest of his labs were unremarkable EKG done revealed normal sinus rhythm with biatrial enlargement, minimal voltage criteria for LVH with early repolarization changes; there are no acute ST-T wave changes noted He was diagnosed with acute renal failure due to rhabdomyolysis and was instructed to continue to increase his oral fluid intake and to follow-up with his PCP JEFE as well as rechecking his labs in a few days Patient is currently concerned about his declining renal function and would like to see if he can get a referral to nephrology for further evaluation and management States that he is scheduled to see Neurology in a few weeks for further evaluation of his recurrent syncopal episodes - reports that he has a family history of epilepsy and is concerned that his episodes may be due to seizures He currently denies any headaches or dizziness Denies any chest pain, no shortness of breath No nausea/vomiting, no abdominal pain No change in bowel habits noted [facility] Medical History (Updated 01/29/23 @ 22:35 by Boni Swann MD) Syncopal episodes Major depression with psychotic features Generalized anxiety disorder Surgical History History of dental surgery History of hand surgery History of lung surgery Family History (Updated 01/29/23 @ 22:25 by Boni Swann MD) Mother Substance use disorder Father Substance use disorder Other Epilepsy Mental health disorder Social History Housing: Other Alcohol intake: unknown Patient Tobacco Use Status: Current everyday Tobacco user Tobacco use type: Cigarette Cigarettes Per Day: 2 e-Cigarette/Vaping Use: Never Used Second Hand Smoke Exposure: Yes Substance Use Type: Marijuana service: No Current occupational status: unemployed Cognitive needs: No Hearing needs: No Vision needs: No Questionnaire PHQ-9 Over the last 2 weeks, how often have you been bothered by any of the following problems? 1. Little interest or pleasure in doing things: more than half the days 2. Feeling down, depressed, or hopeless: more than half the days 3. Trouble falling or staying asleep, or sleeping too much: more than half the days 4. Feeling tired or having little energy: more than half the days 5. Poor appetite or overeating: more than half the days 6. Feeling bad about yourself - or that you are a failure or have let yourself or your family down: more than half the days 7. Trouble concentrating on things, such as reading the newspaper or watching television: more than half the days 8. Moving or speaking so slowly that other people could have noticed. Or the opposite - being so fidgety or restless that you have been moving around a lot more than usual: more than half the days 9. Thoughts that you would be better off or of hurting yourself in some way: several days Total score: 17 Depression Screening Interpretation: Positive Depression Screening Follow-up: Existing condition, In treatment and Community Mental Health Worker F/U 18948 - PHQ-9 Billing: Yes Source: Developed by Drs. Pravin Graves, Mellissa Napoles, Ethan Clark and colleagues, with an educational shirlene from [employer]. Thrive Questionnaire Date Thrive assessed: 01/27/23 I am a: Patient What is your living situation today?: I have a steady place to live Within the past 12 months, did the food you bought not last and you didn't have the money to get more?: Never true Within the past 12 months, did you worry whether your food would run out before you got money to buy more?: Never true Do you have trouble paying for medicines?: No Do you have trouble getting transportation to medical appointments?: No Do you have trouble paying your heating and electricity bill?: No Do you have trouble taking care of your child, family member or friend?: No Do you have trouble with day-to-day activities such as bathing, preparing meals, shopping, managing finances, etc.?: No Are you currently unemployed and looking for a job?: No Are you interested in more education?: No Please select the resources that you would like help with: None Currently or been in a relationship where the following occur: no concerns reported AUDIT C Alcohol Use Questionnaire (AUDIT-C) 1. How often do you have a drink containing alcohol?: Never 3. How often do you have six or more drinks on one occasion?: Never Total Score: 0 Score Reviewed/Action Taken: Yes KATHY-7 AMB Questionnaire KATHY-7 Date KATHY - 7 assessed: 01/27/23 Feeling nervous, anxious, or on edge: 3 = Nearly every day Not being able to stop or control worryin = Nearly every day Worrying too much about different things: 3 = Nearly every day Trouble relaxin = Nearly every day Being so restless that it is hard to sit still: 3 = Nearly every day Becoming easily annoyed or irritable: 3 = Nearly every day Feeling afraid as if something awful might happen: 3 = Nearly every day Total KATHY-7 score (0-4 normal; 5-9 mild; 10-14 moderate; 15-21 severe): 21 Source: Developed by Drs. Pravin Graves, Mellissa Napoles, Ethan Clark and colleagues, with an educational shirlene from [employer]. Review of Systems Const Denies chills, Reports fatigue, Denies fever(s) and Denies headache(s) ENT Denies dysphagia, Denies dizziness, Denies otalgia, Denies headache(s), Denies neck pain, Denies odynophagia and Denies sore throat Card Denies chest pain, Reports syncope (see HPI), Denies palpitations and Denies dyspnea Resp Denies cough and Denies dyspnea GI Denies abdominal pain, Denies constipation, Denies dysphagia, Denies heartburn, Denies diarrhea, Denies nausea, Denies odynophagia and Denies vomiting Denies dysuria, Denies nocturia and Denies urinary urgency Musc Details: reports experiencing recurrent pain and at times, burning sensation over his left hand where 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 Denies neck pain Neuro Denies dizziness, Reports syncope (see HPI) and Denies headache(s) Endo Reports fatigue and Denies palpitations Physical exam (Primary Care) Vital Signs: Last Vital Signs Pulse 91 01/27/23 15:36 BP 118/90 H 01/27/23 15:36 Pulse Ox 95 01/27/23 15:36 Oxygen Delivery Method Room Air 01/27/23 15:36 BMI result Body Mass Index 24.9 Tobacco/Smoking Status: Tobacco use Status Tobacco use date assessed 01/27/23 01/27/23 15:41 Patient Tobacco Use Status Current everyday Tobacco 01/27/23 15:41 Tobacco use type Cigarette 01/27/23 15:41 e-Cigarette/Vaping Use Never Used 01/27/23 15:41 PHQ-9: PHQ-9 Score PHQ-9: Total score 17 01/27/23 16:32 Depression Screening Interpretation: Positive Depression Screening Follow-up: Existing condition, In treatment and Community Mental Health Worker F/U Thrive Assessment: Date of Thrive Assessment Date Thrive assessed 01/27/23 01/27/23 15:41 Currently or been in a relationship where the following occur: no concerns reported Const General: no acute distress and alert Neck Neck: Yes no lymphadenopathy and Yes supple Resp Auscultation: clear to auscultation bilaterally, no rales and no wheezes Cardio Rate: regular rate Rhythm: regular rhythm Heart sounds: no murmurs GI Palpation (GI): Soft to palpation, nontender and No hepatosplenomegaly present Extrem Other: (+) healed stumps of all of the fingers on his left hand, with no lesions noted General: Yes no clubbing, cyanosis or edema Assessment and Plan Assessment & Plan (1) Acute renal failure due to rhabdomyolysis: Code(s): N17.9 - Acute kidney failure, unspecified; M62.82 - Rhabdomyolysis Plan: Patient advised that his renal function and GFR have declined significantly on his recent labs done in the ER a few days ago; his renal function and GFR were normal when previously checked last month Advised that his renal function right now is at the range of CKD stage IIIB Will refer him to Nephrology JE[facility] for further evaluation and management Patient is encouraged in the meantime to continue to increase his oral fluids and to stay hydrated; he is also advised to stay out of the heat for now and avoid doing any kind of yard work until his kidney issues are clarified and addressed (2) Syncopal episodes: Code(s): R55 - Syncope and collapse Qualifiers: Syncope type: unspecified Qualified Code(s): R55 - Syncope and collapse Plan: Are most likely due to dehydration/hypovolemia but as he reportedly has a strong family history of seizure, has been referred to and is scheduled to see neurology in a couple of weeks for further evaluation (3) Abnormal EKG: Code(s): R94.31 - Abnormal electrocardiogram [ECG] [EKG] Plan: His EKG done at the ER a few days ago revealed findings suggestive of biatrial enlargement and LVH by voltage Will refer him to Cardiology for further evaluation and management (4) Phantom limb pain: Code(s): G54.6 - Phantom limb syndrome with pain Plan: He is advised that the recurrent burning sensation and pain that he has been experiencing over his left hand where his fingers used to be is most likely phantom limb pain Advised that his Gabapentin usually should help with the symptoms but if they do not, he should speak to Neurology about this when he is seen for his syncopal episode in a couple of weeks (5) Generalized anxiety disorder: Code(s): F41.1 - Generalized anxiety disorder Plan: Continue Clonazepam 1 mg Q HS (6) Major depression with psychotic features: Code(s): F32.3 - Major depressive disorder, single episode, severe with psychotic feat ures Plan: Continue Quetiapine ER 150 mg Q HS and Gabapentin 800 mg TID Follow up with psychiatry as scheduled Plan Follow up with PCP in 2 months Orders: Referrals Nephrology Referral N17.0 - Acute kidney failure with tubular necrosis, N17.9 - Acute kidney failure, unspecified, N18.32 - Chronic kidney disease, stage 3b Cardiology Referral R00.2 - Palpitations, R94.31 - Abnormal electrocardiogram [ECG] [EKG] Coding Level of Care Code Est Pt Level 4 (71979) Diagnoses Acute renal failure due to rhabdomyolysis N17.9; M62.82 Syncope, unspecified syncope type R55 Syncope type: unspecified Abnormal EKG R94.31 Phantom limb pain G54.6 Generalized anxiety disorder F41.1 Major depression with psychotic features F32.3
== END 2023-01-27 16:36 | disposition home or self-care (01) ==
PROVIDERS: PCP Internal Medicine; Visit Provider Internal Medicine
DX: N17.9 Acute kidney failure, unspecified (principal); G54.6 Phantom limb syndrome with pain; F32.3 Major depressive disorder, single episode, severe with psychotic features; M62.82 Rhabdomyolysis; R55 Syncope and collapse; R94.31 Abnormal electrocardiogram [ECG] [EKG]; F41.1 Generalized anxiety disorder
CPT/HCPCS: 99214

== ENCOUNTER 2023-11-16 14:47 | Outpatient (AMB) | payer OTHER, SELFPAY ==
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
[2023-11-16 15:13] VITALS: BP 124/82; PULSE 82; O2SAT 96; BMI 24.9
== END 2023-11-16 16:15 | disposition home or self-care (01) ==
PROVIDERS: PCP Internal Medicine; Visit Provider Internal Medicine
DX: F32.3 Major depressive disorder, single episode, severe with psychotic features (principal)
CPT/HCPCS: 99214

== ENCOUNTER 2024-03-07 08:20 | Outpatient (AMB) | payer OTHER, SELFPAY ==
[2024-03-07 08:27] VITALS: BP 140/86; PULSE 89; O2SAT 98; BMI 24.8
--- NOTE | 2024-03-07 08:27 | A.OFFPC_ITS ---
Vital Signs 03/07/24 08:27 Height 5 ft 9 in Weight 168 lb BMI 24.8 BP 140/86 H Blood Pressure Location Lt brachial Position Sitting Pulse 89 Pulse Source Pulse Oximeter Pulse Oximetry (%) 98 Oxygen Delivery Method Room Air Intake Visit Reasons: trichomoniasis ? Allergies adhesive tape Allergy (Intermediate, Verified 03/07/24 08:27) Hives trazodone Allergy (Mild, Verified 03/07/24 08:27) Hallucinations nabumetone Adverse Reaction (Intermediate, Verified 03/07/24 08:27) blood in stool Tobacco use date assessed: 11/16/23 Dental Screening Dental Screen Date: 11/16/23 HPI HPI Comments History of Present Illness Details 43 y/o male patient who presents to the clinic for same day appointment. Pt reports that his GF tested positive for Trich and he is worried he might have caught the infection. Pt very anxious and worried today. Denies any symptoms today. [facility] Medical History (Updated 03/07/24 @ 08:34 by Tiera Delgado NP) Screening examination for STI Syncopal episodes Major depression with psychotic features Generalized anxiety disorder Surgical History History of dental surgery History of hand surgery History of lung surgery Family History Mother Substance use disorder Father Substance use disorder Other Epilepsy Mental health disorder Social History (Updated 11/16/23 @ 15:25 by SHAQUILLE Lewis) Housing: Other Alcohol intake: current Alcohol intake frequency: holidays/special occasions only Patient Tobacco Use Status: Current everyday Tobacco user Tobacco use type: Cigarette Cigarettes Per Day: 2 e-Cigarette/Vaping Use: Currently Using Second Hand Smoke Exposure: Yes Substance Use Type: Marijuana service: No Current occupational status: unemployed Cognitive needs: No Hearing needs: No Vision needs: No Questionnaire PHQ-9 Over the last 2 weeks, how often have you been bothered by any of the following problems? 1. Little interest or pleasure in doing things: more than half the days 2. Feeling down, depressed, or hopeless: nearly every day 3. Trouble falling or staying asleep, or sleeping too much: nearly every day (never sleeps) 4. Feeling tired or having little energy: not at all 5. Poor appetite or overeating: nearly every day 6. Feeling bad about yourself - or that you are a failure or have let yourself or your family down: nearly every day 7. Trouble concentrating on things, such as reading the newspaper or watching television: nearly every day 8. Moving or speaking so slowly that other people could have noticed. Or the opposite - being so fidgety or restless that you have been moving around a lot more than usual: nearly every day 9. Thoughts that you would be better off or of hurting yourself in some way: more than half the days Total score: 22 Depression Screening Interpretation: Positive Depression Screening Done: Yes Source: Developed by Drs. Pravin Graves, Mellissa Napoles, Ethan Clark and colleagues, with an educational shirlene from [employer]. Thrive Questionnaire Date Thrive assessed: 11/16/23 KATHY-7 AMB Questionnaire KATHY-7 Date KATHY - 7 assessed: 11/16/23 Source: Developed by Drs. Pravin Graves, Mellissa Napoles, Ethan Clark and colleagues, with an educational shirlene from [employer]. Review of Systems Const All systems reviewed & are unremarkable except as noted in HPI and below Physical exam (Primary Care) Vital Signs: Oxygen Delivery Method Room Air 03/07/24 08:27 Tobacco/Smoking Status: Tobacco use Status Tobacco use date assessed 11/16/23 11/16/23 15:24 Patient Tobacco Use Status Current everyday Tobacco 11/16/23 15:25 Tobacco use type Cigarette 11/16/23 15:25 e-Cigarette/Vaping Use Currently Using 11/16/23 15:25 Depression Screening Interpretation: Positive Thrive Assessment: Date of Thrive Assessment Date Thrive assessed 11/16/23 11/24/23 14:06 Const General: cooperative and no acute distress Orientation/consciousness: patient oriented x3 General: Yes deferred Skin General skin exam: no rashes or lesions noted Neuro General: patient oriented x3, gait normal and moves all extremities Psych Speech and movement: Normal speech and movement present Affect: Anxious affect present Coding Level of Care Code Est Pt Level 3 (61939) Diagnoses Screening examination for STI Z11.3 Time Spent (min) 20 Comment Spent on patient education. Assessment & Plan Assessment & Plan (1) Screening examination for STI: Code(s): Z11.3 - Encounter for screening for infections with a predominantly sexual mode of transmission Category: Medical Plan: Ordered GT/NG with Trich urine Ordered Metronidazole x 7 days. Will call Pt with results Advised Pt to abstain from sexual [place] during Treatment ( 7 Days). Orders: Orders Trichomonas vag. RNA Ur Male Today Z11.3 - Encounter for screening for infections with a predominantly sexual mode of transmission CT NG by PCR Today Z11.3 - Encounter for screening for infections with a predominantly sexual mode of transmission Medications: New metronidazole 500 mg PO BID 7 days 14 tabs 0RF Z11.3 - Encounter for screening for infections with a predominantly sexual mode of transmission
== END 2024-03-07 09:51 | disposition home or self-care (01) ==
PROVIDERS: PCP Internal Medicine; Visit Provider Nurse Practitioner Family
DX: Z11.3 Encounter for screening for infections with a predominantly sexual mode of transmission (principal)

== ENCOUNTER 2024-03-28 01:35 | Emergency (ER) | payer OTHER, SELFPAY ==
[2024-03-28 01:57] VITALS: BP 151/98; PULSE 74; RESP 16; TEMP 36.6; O2SAT 98; BMI 24.8
[2024-03-28 05:04] VITALS: BP 132/87; PULSE 54; RESP 16; TEMP 36.7; O2SAT 96
--- NOTE | 2024-03-28 06:45 | ED_ITS ---
HPI - General Adult General Chief complaint: Headache Stated complaint: r hand and arm pain Time Seen by Provider: 03/28/24 06:40 Source: patient Mode of arrival: ambulatory Limitations: no limitations History of Present Illness ED Provider: Azul Jenkins PA-C Related Data Previous Rx's ?Medication ?Instructions ?Recorded gabapentin 800 mg tablet 800 mg PO TID #90 tabs 11/17/23 quetiapine 150 mg tablet,extended 150 mg PO BEDTIME #90 tabs 02/14/24 release 24 hr (Seroquel XR) clonazepam 1 mg tablet (Klonopin) 1 mg PO BID #30 tabs 03/07/24 metronidazole 500 mg tablet 500 mg PO BID 7 days #14 tabs 03/07/24 Allergies Allergy/AdvReac Type Severity Reaction Status Date / Time adhesive tape Allergy Intermediate Hives Verified 03/28/24 02:06 trazodone Allergy Mild Hallucinati Verified 03/28/24 02:06 ons nabumetone AdvReac Intermediate blood in Verified 03/28/24 02:06 stool PMFSH Past Medical History Medical History (Updated 03/07/24 @ 08:34 by Tiera Delgado NP) Screening examination for STI Syncopal episodes Major depression with psychotic features Generalized anxiety disorder Surgical History History of dental surgery History of hand surgery History of lung surgery Family History Family History Mother Substance use disorder Father Substance use disorder Other Epilepsy Mental health disorder Social History Social History (Updated 11/16/23 @ 15:25 by SHAQUILLE Lewis) Housing: Other Alcohol intake: current Alcohol intake frequency: holidays/special occasions only Patient Tobacco Use Status: Current everyday Tobacco user Tobacco use type: Cigarette Cigarettes Per Day: 2 e-Cigarette/Vaping Use: Currently Using Second Hand Smoke Exposure: Yes Substance Use Type: Marijuana Advance Directives: No Advance Directives Information Provided: Yes Do you have a plan to hurt others: No Plan service: No Current occupational status: unemployed Cognitive needs: No Hearing needs: No Vision needs: No Physical Exam ED Vital Signs: Vital Signs - 24 hr 03/28/24 01:57 11/07/24 05:04 Temperature 97.9 F 98.0 F Pulse Rate 74 54 Respiratory Rate 16 16 Blood Pressure 151/98 H 132/87 Pulse Oximetry 98 96 Oxygen Delivery Method Room Air Room Air BMI result Body Mass Index 24.8 Discharge Plan Discharge Prescriptions: No Action gabapentin 800 mg tablet 800 mg PO TID Qty: 90 0RF quetiapine [Seroquel XR] 150 mg tablet extended release 24 hr 150 mg PO BEDTIME Qty: 90 0RF clonazepam [Klonopin] 1 mg tablet 1 mg PO BID Qty: 30 0RF Rx Instructions: administer 30 minutes before bedtime metronidazole 500 mg tablet 500 mg PO BID 7 Days Qty: 14 0RF Print Language: Australian
--- NOTE | 2024-03-28 07:20 | ED.GENADULT ---
HPI - General Adult General Chief complaint: Headache Stated complaint: r hand and arm pain Time Seen by Provider: 03/28/24 06:40 History of Present Illness HPI narrative: Patient left the department without being seen, after I was assigned to his chart. Related Data Previous Rx's ?Medication ?Instructions ?Recorded gabapentin 800 mg tablet 800 mg PO TID #90 tabs 11/17/23 quetiapine 150 mg tablet,extended 150 mg PO BEDTIME #90 tabs 02/14/24 release 24 hr (Seroquel XR) clonazepam 1 mg tablet (Klonopin) 1 mg PO BID #30 tabs 03/07/24 metronidazole 500 mg tablet 500 mg PO BID 7 days #14 tabs 03/07/24 Allergies Allergy/AdvReac Type Severity Reaction Status Date / Time adhesive tape Allergy Intermediate Hives Verified 03/28/24 02:06 trazodone Allergy Mild Hallucinati Verified 03/28/24 02:06 ons nabumetone AdvReac Intermediate blood in Verified 03/28/24 02:06 stool PMFSH Past Medical History Medical History (Updated 03/28/24 @ 07:20 by ESPERANZA Savage) Screening examination for STI Syncopal episodes Major depression with psychotic features Generalized anxiety disorder Surgical History History of dental surgery History of hand surgery History of lung surgery Family History Family History Mother Substance use disorder Father Substance use disorder Other Epilepsy Mental health disorder Social History Social History (Updated 11/16/23 @ 15:25 by SHAQUILLE Lewis) Housing: Other Alcohol intake: current Alcohol intake frequency: holidays/special occasions only Patient Tobacco Use Status: Current everyday Tobacco user Tobacco use type: Cigarette Cigarettes Per Day: 2 e-Cigarette/Vaping Use: Currently Using Second Hand Smoke Exposure: Yes Substance Use Type: Marijuana Advance Directives: No Advance Directives Information Provided: Yes Do you have a plan to hurt others: No Plan service: No Current occupational status: unemployed Cognitive needs: No Hearing needs: No Vision needs: No Physical Exam ED Vital Signs: Vital Signs - 24 hr 03/28/24 01:57 03/28/24 05:04 Temperature 97.9 F 98.0 F Pulse Rate 74 54 Respiratory Rate 16 16 Blood Pressure 151/98 H 132/87 Pulse Oximetry 98 96 Oxygen Delivery Method Room Air Room Air BMI result Body Mass Index 24.8 Discharge Plan Discharge Clinical Impression: Headache Patient Disposition: Left Without Being Seen Interventions: LWBS Worksheet Last Done: 03/28/24 06:58 Discharge Date/Time: 03/28/24 06:59
== END 2024-03-28 06:59 | disposition left against medical advice (07) ==
PROVIDERS: Emergency Provider Emergency Medicine; PCP Internal Medicine
DX: R51.9 Headache, unspecified (principal)
CPT/HCPCS: 99281

== ENCOUNTER 2024-07-02 13:21 | Outpatient (AMB) | payer OTHER, SELFPAY ==
--- NOTE | 2024-07-02 14:08 | MHC.PC.OV ---
Vital Signs 07/02/24 14:11 Height 5 ft 9 in Weight 168 lb 6 oz BMI 24.9 BP 130/78 Blood Pressure Location Lt brachial Position Sitting Pulse 85 Pulse Source Pulse Oximeter Temp 97.1 F Temp Source Skin Pulse Oximetry (%) 95 Oxygen Delivery Method Room Air Intake Visit Reasons: Mental health medications Intake Note: Patient is here to follow up on mental health medications review and refill. Lockstitch Waistline Joiner: Not Required per policy Accompanied by: Self / Same As Patient Allergies adhesive tape Allergy (Intermediate, Verified 07/02/24 15:19) Hives trazodone Allergy (Mild, Verified 07/02/24 15:19) Hallucinations nabumetone Adverse Reaction (Intermediate, Verified 07/02/24 15:19) blood in stool Tobacco use date assessed: 07/02/24 Dental Screening Dental Screen Date: 07/02/24 Did you have a dental visit in the last 12 months?: No Did you have a dental problem in the last 6 months where you did not have access to dental care?: No Was dental information given to patient?: No (no teeth) HPI Mental health medications HPI Details Patient is a 43-year-old male with significant past medical history of major depression with psychotic features, generalized anxiety disorder, insomnia Initially the patient was placed on a scheduled for restarting mental health medications Patient presented with headphones on Patient reports that this is the only thing that is helping him to drown out the voices in his head Patient reports that he has been off his medication for less than a month now. Reports that his Seroquel was not helping him, this only helped him to sleep, but he wake up angry all the time He reports that the only person that was helping him is afraid to be around him Reports that he does not know what he is doing, but he needs help The patient reports that he does not do drugs but he is being told by other people that he is Is it possible to forget like that? Reports that he is losing his mind Reports that he has been hearing his brother talking to him and saying things that he know he would not have said Reports that the voices are telling him to hurt people, so he has been avoiding people because he does not want to hurt anyone, but he feels like he is losing control Reports that if no one is able to stop it, he will put a stop to himself because he cannot take it anymore The people presenting with both SI/HI and is requesting help because he completely losing control Discussed with the patient that the medications that he is on currently might not be enough to help with these feeling and if he give me a minute I could find out what is the best option for him currently. The patient agreed with the plan to escalate his plan of care Kahlil from [facility] was informed of the concerns with the patient. He was able to spearhead the process of getting the patient to the hospital to be evaluated. [facility] Medical History Screening examination for STI Syncopal episodes Major depression with psychotic features Generalized anxiety disorder Surgical History History of dental surgery History of hand surgery History of lung surgery Family History Mother Substance use disorder Father Substance use disorder Other Epilepsy Mental health disorder Social History Household Members: Unknown / Unable to assess Housing: Unknown / Unable to assess Do you presently have visiting nurse or other home services: No Unable to assess alcohol history related to: Refusing to respond Alcohol intake: current Alcohol intake frequency: holidays/special occasions only Patient Tobacco Use Status: Current everyday Tobacco user Tobacco use type: Cigarette Cigarette Packs Per Day: 0.10 Cigarettes Per Day: 1 Years Smoked: 30 Smoked in Last 30 Days: Yes e-Cigarette/Vaping Use: Never Used Patient Interested in Nicotine Replacement: No Patient Given Instructions on How to Stop Smoking: No Second Hand Smoke Exposure: No Use of substances other than those prescribed or required for medical reasons: Yes Substance Use Type: Crack/Cocaine and Marijuana Substance Use Frequency: Chronic Longstanding Last Used Substance: Just Prior to Admission Currently Displaying Signs/Symptoms of Drug Intoxication Withdrawal: No Any prior treatment program specific to substance use: No Have you been hit, kicked, punched, or otherwise hurt by someone within the past year? If so, by whom?: No Do you feel safe in your current relationship?: No Current Relationship Is there a partner from a previous relationship who is making you feel unsafe now?: No Are you made to feel afraid or neglected: No Spiritual Healthcare Practices: none Roman Catholic Healthcare Practices: none Cultural Healthcare Practices: none Advance Directives: No Advance Directives Information Provided: No Do you have a plan to hurt others: No Plan Recently lost weight without trying: No Eating poorly because of decreased appetite: No Nutrition Risks: No Nutritional Risk Poor oral hygiene: No service: No Current occupational status: unemployed Cognitive needs: No Hearing needs: No Vision needs: No Questionnaire PHQ-9 Over the last 2 weeks, how often have you been bothered by any of the following problems? 1. Little interest or pleasure in doing things: nearly every day 2. Feeling down, depressed, or hopeless: nearly every day 3. Trouble falling or staying asleep, or sleeping too much: nearly every day (can not sleep) 4. Feeling tired or having little energy: more than half the days 5. Poor appetite or overeating: more than half the days (over eating) 6. Feeling bad about yourself - or that you are a failure or have let yourself or your family down: nearly every day 7. Trouble concentrating on things, such as reading the newspaper or watching television: nearly every day 8. Moving or speaking so slowly that other people could have noticed. Or the opposite - being so fidgety or restless that you have been moving around a lot more than usual: more than half the days 9. Thoughts that you would be better off or of hurting yourself in some way: several days Total score: 22 Depression Screening Interpretation: Positive Depression Screening Done: Yes 59090 - PHQ-9 Billing: Yes Source: Developed by Drs. Pravin Graves, Mellissa Napoles, Ethan Clark and colleagues, with an educational shirlene from [employer]. Thrive Questionnaire Date Thrive assessed: 07/02/24 I am a: Patient What is your living situation today?: I have a steady place to live Within the past 12 months, did the food you bought not last and you didn't have the money to get more?: Never true Within the past 12 months, did you worry whether your food would run out before you got money to buy more?: Never true Do you have trouble paying for medicines?: No Do you have trouble getting transportation to medical appointments?: No Do you have trouble paying your heating and electricity bill?: No Do you have trouble taking care of your child, family member or friend?: No Do you have trouble with day-to-day activities such as bathing, preparing meals, shopping, managing finances, etc.?: No Are you currently unemployed and looking for a job?: No Are you interested in more education?: No Please select the resources that you would like help with: None Currently or been in a relationship where the following occur: No concerns reported THRIVE Score: 0 AUDIT C Alcohol Use Questionnaire (AUDIT-C) 1. How often do you have a drink containing alcohol?: Never Total Score: 0 KATHY-7 AMB Questionnaire KATHY-7 Date KATHY - 7 assessed: 07/02/24 Feeling nervous, anxious, or on edge: 3 = Nearly every day Not being able to stop or control worryin = Nearly every day Worrying too much about different things: 3 = Nearly every day Trouble relaxin = Nearly every day Being so restless that it is hard to sit still: 2 = More than half the days Becoming easily annoyed or irritable: 3 = Nearly every day Feeling afraid as if something awful might happen: 2 = More than half the days Total KATHY-7 score (0-4 normal; 5-9 mild; 10-14 moderate; 15-21 severe): 19 Source: Developed by Drs. Pravin Graves, Mellissa Napoles, Ethan Clrak and colleagues, with an educational shirlene from [employer]. Review of Systems Card Denies chest pain, Denies lightheadedness and Denies dyspnea Resp Denies dyspnea Physical exam (Primary Care) Vital Signs: Last Vital Signs Temp 97.1 F 07/02/24 14:11 Pulse 85 07/02/24 14:11 BP 130/78 07/02/24 14:11 Pulse Ox 95 07/02/24 14:11 Oxygen Delivery Method Room Air 07/02/24 14:11 BMI result Body Mass Index 24.9 Tobacco/Smoking Status: Tobacco use Status Tobacco use date assessed 07/02/24 07/02/24 14:13 Patient Tobacco Use Status Current everyday Tobacco 07/02/24 14:25 Tobacco use type Cigarette 07/02/24 14:25 e-Cigarette/Vaping Use Former Use 07/02/24 14:29 PHQ-9: PHQ-9 Score PHQ-9: Total score 22 07/02/24 15:05 Depression Screening Interpretation: Positive Thrive Assessment: Date of Thrive Assessment Date Thrive assessed 07/02/24 07/02/24 14:13 Currently or been in a relationship where the following occur: No concerns reported Coding Level of Care Code Est Pt Level 4 (23045) Diagnoses Suicidal ideation R45.851 Homicidal ideation R45.850 Major depression with psychotic features F32.3 Auditory hallucinations R44.0 Additional Codes PHQ-9 - 85034 - PHQ-9 Billing: Yes ([id number]) Time Spent (min) 36 Assessment & Plan Assessment & Plan (1) Suicidal ideation: Code(s): R45.851 - Suicidal ideations Category: Medical Plan: The patient is reports si/hi, reports that he cannot stop the voices in his head. Reports that he has been out of his medication for almost and month now. Reports that he does not have a psychiatrist or therapist at the moment. He reports that his seroquel was only putting him a sleep, but his friend said that he woke up angry. He is willing to try anything right now. He is hearing his brother speaking to him and telling him to harm people. He reports that he needs it to stop or else he is going to make it stop. Collaborated with Kahlil, discussed with patient about getting admitted to be evaluated and treated and the patient is in agreement (2) Homicidal ideation: Code(s): R45.850 - Homicidal ideations Category: Medical Plan: Same as above (3) Major depression with psychotic features: Code(s): F32.3 - Major depressive disorder, single episode, severe with psychotic features Category: Medical Plan: The patient is reports si/hi, reports that he cannot stop the voices in his head. Reports that he has been out of his medication for almost and month now. Reports that he does not have a psychiatrist or therapist at the moment. He reports that his seroquel was only putting him a sleep, but his friend said that he woke up angry. He is willing to try anything right now. He is hearing his brother speaking to him and telling him to harm people. He reports that he needs it to stop or else he is going to make it stop. Collaborated with Kahlil, discussed with patient about getting admitted to be evaluated and treated and the patient is in agreement. (4) Auditory hallucinations: Code(s): R44.0 - Auditory hallucinations Category: Medical Plan: Same as above Plan Community navigator (Mello) worked with the patient over to the ED to be evaluated
[2024-07-02 14:11] VITALS: BP 130/78; PULSE 85; TEMP 36.2; O2SAT 95; BMI 24.9
== END 2024-07-02 15:05 | disposition home or self-care (01) ==
PROVIDERS: PCP Internal Medicine
DX: R45.851 Suicidal ideations (principal); R45.850 Homicidal ideations; F32.3 Major depressive disorder, single episode, severe with psychotic features

== ENCOUNTER → 2024-07-02 13:21 | Outpatient (BNVA) | payer OTHER, SELFPAY | PROVIDERS: PCP Internal Medicine | DX: R45.851 Suicidal ideations (principal); R45.850 Homicidal ideations; F32.3 Major depressive disorder, single episode, severe with psychotic features | CPT/HCPCS: 96127; 99212 ==

== ENCOUNTER 2024-07-02 15:08 | Inpatient (IN) | payer OTHER, SELFPAY ==
--- NOTE | 2024-07-02 | ECG_ITS ---
Test Reason : MED CLEAR Blood Pressure : */* mmHG Vent. Rate : 65 BPM Atrial Rate : 65 BPM P-R Int : 142 ms QRS Dur : 88 ms QT Int : 416 ms P-R-T Axes : 72 61 69 degrees QTcB Int : 432 ms Sinus rhythm with Premature atrial complexes Otherwise normal ECG When compared with ECG of 24-Jan-2023 19:03, Premature atrial complexes are now Present Referred By: Esdras Duenas Electronically Signed By: SAMANTHA JOSHI MD
--- NOTE | ~2024-07-02 | CT_ITS ---
EXAMINATION: CT HEAD WITHOUT CONTRAST CLINICAL INFORMATION: psychosis, hx of several TBI's COMPARISON: January 24, 2023. TECHNIQUE: Contiguous axial imaging was performed from the skull base to vertex without intravenous administration of contrast. This CT examination was performed using dose optimization techniques as appropriate, variously including the following: *Automated exposure control *Adjustment of mA and/or kV according to patient size (this includes techniques or standardized protocols for targeted exams where dose is matched to indication/reason for exam; i.e. extremities or head) *Use of iterative reconstruction technique DLP: 717 mGy-cm FINDINGS: No acute intracranial hemorrhage, mass effect, midline shift, hydrocephalus or herniation. [place]-white matter differentiation is normal. Probable large Virchow-Gokul spaces inferior to the basal ganglia. Posterior cranial fossa contents demonstrated no acute intracranial hemorrhage or mass effect. Sellar/suprasellar region demonstrated no gross masses. Craniocervical junction is intact and normal. No gross masses or fluid collections or gross abnormality within the intraconal or extraconal compartments of the orbits. No air-fluid levels in the included paranasal sinuses. Tympanic cavities and mastoid air cells are aerated. Poor pneumatization on the right mastoid. There is a 12 mm semicircular fat density in the left frontal forehead, consider lipoma.. CT/CT head/brain wo IV con IMPRESSION: No acute or structural brain abnormality by CT. Electronically signed by: Evan Valverde MD 07/04/2024 01:06 PM [facility]
--- NOTE | ~2024-07-02 | MR_ITS ---
EXAMINATION: MR BRAIN WITHOUT CONTRAST CLINICAL INFORMATION: Psychosis, history of several traumatic brain injuries. COMPARISON: No prior MRI. CT head dated prior day. TECHNIQUE: MRI of the brain was obtained using routine sequences without contrast. Exam performed on a 1.5 Shama Siemens high-field unit. FINDINGS: There is no diffusion restriction. There is no intracranial hemorrhage, acute infarction, mass effect, or edema. Ventricles, sulci, and cisterns are normal in size and configuration for patient age. No shift of midline. Basal cisterns are patent. No abnormal hemosiderin deposition is identified. There are a few scattered tiny foci of white matter T2 hyperintensity in the periventricular, subcortical, and hemispheric deep white matter, nonspecific, but most likely sequela of minimal microangiopathy. Midline structures appear normally formed. The pituitary gland appears normal. Posterior fossa structures appear normal. Cerebellar tonsils are appropriately located. Major flow voids are preserved within the skull base. The globes and orbital contents demonstrate no abnormalities. Paranasal sinuses are clear bilaterally. Nasal septum is midline without spur. The mastoids and tympanic cavities are normally aerated. Extracranial soft tissues demonstrate a 1.6 cm left frontal scalp lipoma. No suspicious bone marrow changes are evident. Atlantoaxial joint is normal. MR/MR head/brain wo con IMPRESSION: 1. No intracranial hemorrhage, acute infarction, mass effect, or edema. There are no significant sequela of trauma by MRI. 2. A few scattered tiny white matter foci, nonspecific but most likely sequela of minimal microangiopathy. Electronically signed by: Manny Upton MD 07/05/2024 03:33 PM [facility]
[2024-07-02 15:16] VITALS: BP 145/94; PULSE 79; RESP 20; TEMP 36.1; O2SAT 97; BMI 23.0
--- NOTE | 2024-07-02 15:22 | ED.GENADULT ---
HPI - General Adult General Chief complaint: Psychiatric Symptoms Stated complaint: crisis Time Seen by Provider: 07/02/24 15:39 Source: patient Mode of arrival: ambulatory Limitations: no limitations History of Present Illness HPI narrative: This is a 43-year-old man with a past medical history major depression with psychotic features, anxiety who presents for evaluation of auditory hallucinations. He states that he has been hearing voices for the last year. Patient reports. Multiple different voices. She states initially it was a girl, and it was a man and woman and subsequently he states that since his brother he has been hearing his brother's voice as well. He she states associated homicidal and suicide ideations. He states no recreational or illicit drug use. He states no alcohol use. He states no fever, headache, neck pain, chest pain, dyspnea, extremity pain, abdominal pain, GI or symptoms. Related Data Home Medications ?Medication ?Instructions ?Recorded ?Confirmed clonazepam 1 mg tablet 1 mg PO BID 07/03/24 07/03/24 gabapentin 800 mg PO TID PRN Pain 07/03/24 07/03/24 quetiapine 150 mg PO BEDTIME 07/03/24 07/03/24 Allergies Allergy/AdvReac Type Severity Reaction Status Date / Time adhesive tape Allergy Intermediate Hives Verified 07/02/24 15:19 trazodone Allergy Mild Hallucinati Verified 07/02/24 15:19 ons nabumetone AdvReac Intermediate blood in Verified 07/02/24 15:19 stool Review of Systems Review of Systems: ROS as per HPI [facility] Past Medical History Medical History Screening examination for STI Syncopal episodes Major depression with psychotic features Generalized anxiety disorder Surgical History History of dental surgery History of hand surgery History of lung surgery Family History Family History Mother Substance use disorder Father Substance use disorder Other Epilepsy Mental health disorder Social History Social History Household Members: Unknown / Unable to assess Housing: Unknown / Unable to assess Do you presently have visiting nurse or other home services: No Unable to assess alcohol history related to: Refusing to respond Alcohol intake: current Alcohol intake frequency: holidays/special occasions only Patient Tobacco Use Status: Current everyday Tobacco user Tobacco use type: Cigarette Cigarette Packs Per Day: 0.10 Cigarettes Per Day: 1 Years Smoked: 30 Smoked in Last 30 Days: Yes e-Cigarette/Vaping Use: Never Used Patient Interested in Nicotine Replacement: No Patient Given Instructions on How to Stop Smoking: No Second Hand Smoke Exposure: No Use of substances other than those prescribed or required for medical reasons: Yes Substance Use Type: Crack/Cocaine and Marijuana Substance Use Frequency: Chronic Longstanding Last Used Substance: Just Prior to Admission Currently Displaying Signs/Symptoms of Drug Intoxication Withdrawal: No Any prior treatment program specific to substance use: No Have you been hit, kicked, punched, or otherwise hurt by someone within the past year? If so, by whom?: No Do you feel safe in your current relationship?: No Current Relationship Is there a partner from a previous relationship who is making you feel unsafe now?: No Are you made to feel afraid or neglected: No Spiritual Healthcare Practices: none Episcopal Healthcare Practices: none Cultural Healthcare Practices: none Advance Directives: No Advance Directives Information Provided: No Do you have thoughts of harming others: None Do you have a plan to hurt others: No Plan Recently lost weight without trying: No Eating poorly because of decreased appetite: No Nutrition Risks: No Nutritional Risk Poor oral hygiene: No service: No Current occupational status: unemployed Cognitive needs: No Hearing needs: No Vision needs: No Physical Exam ED Vital Signs: Vital Signs - 24 hr 07/02/24 15:16 07/02/24 15:43 Temperature 97.0 F Pulse Rate 79 Respiratory Rate 20 16 Blood Pressure 145/94 H Pulse Oximetry 97 Oxygen Delivery Method Room Air BMI result Body Mass Index 23.0 Gen: NAD, AOx3 HEENT: NCAT, EOMI, normal conjunctiva CV: RRR Pulm: CTAB, no increased work of breathing GI: Soft, NTND, no rebound, guarding or rigidity MSK: Bilateral lower and upper extremity compartments are soft Neuro: Grossly non focal Course Course Course Narrative: RME: 43-year-old male presents to ED for suicidal thoughts. Patient states having auditory hallucinations telling him to kill himself. Patient states hearing his brother voice. Patient is brought to power. Labs ordered consult placed for care team Medications Administered Generic Name Dose Route Start Last Admin Trade Name Neo PRN Reason Stop Dose Admin Acetaminophen 650 mg 07/02/24 21:24 07/03/24 11:41 Acetaminophen 325 Mg Tablet PO 650 mg Q6H PRN Administration Headache/Pain, Scale 1-10 Haloperidol Lactate 5 mg 07/03/24 10:00 07/03/24 10:42 Haloperidol Lactate Oral Conc 10 Mg/5 Ml Oral.Conc PO 5 mg TID SELMA Administration Hydroxyzine HCl 25 mg 07/02/24 21:24 07/02/24 23:03 Hydroxyzine Hcl 25 Mg Tablet PO 25 mg Q6H PRN Administration mild anxiety Olanzapine 5 mg 07/02/24 21:24 07/03/24 11:00 Olanzapine 5 Mg Tablet PO 5 mg Q4H PRN Administration Psychosis Medical Decision Making Medical Decision Making [facility] Narrative: Differential diagnosis includes, but is not limited to decompensated psychiatric illness, substance use. Care is transitioned to Dr. Villeda at the end of my shift at 2100 with disposition pending bed search. Admission/Observation Consideration of admission/observation: Escalation of care including admission/observation considered Lab Data [facility] Lab Attestation statement: I reviewed the patient's lab results. This below are notable for a positive urine cocaine and marijuana his labs are unremarkable. 07/02/24 16:10 07/02/24 21:49 Labs: Lab Results 07/02/24 07/02/24 Range/Units 16:10 17:17 WBC 6.8 (4.8-10.8) X10*3/uL RBC 4.76 (4.60-5.80) X10*6/uL Hgb 14.4 (14.0-18.0) g/dl Hct 43.4 (42.0-52.0) % MCV 91.2 (80.0-98.0) fL MCH 30.3 (27.0-33.0) pg MCHC 33.2 (31.0-36.0) g/dl RDW 12.9 (11.0-16.0) % Plt Count 332 (160-400) X10*3/uL MPV 9.9 (9.4-12.4) fL Immature Gran % (Auto) 0.6 H (0.0-0.4) % Neut % (Auto) 55.4 (45-73) % Lymph % (Auto) 33.8 (20-40) % [place] % (Auto) 8.2 (2-11) % Eos % (Auto) 1.6 (0-4) % Baso % (Auto) 0.4 (0-2) % Lymph # (Auto) 2.3 (1.2-4.9) X10*3/uL [place] # (Auto) 0.6 (0.1-1.2) X10*3/uL Eos # (Auto) 0.1 (0.0-0.4) X10*3/uL Baso # (Auto) 0.0 (0.0-0.2) X10*3/uL Abs Immat Gran (auto) 0.04 H (0.00-0.03) X10*3/uL Absolute Neuts (auto) 3.8 (2.0-8.3) x10*3/uL Absolute Nucleated RBC 0.000 (0.0-0.012) X10*3/uL Nucleated RBC % (auto) 0.0 (0.0-0.2) /100WBC Sodium 143 (135-145) mmol/L Potassium 4.0 (3.3-5.1) mmol/L Chloride 108 (96-108) mmol/L Carbon Dioxide 29 (22-29) mmol/L Anion Gap 10 L (12-20) BUN 18 H (9-16) mg/dL Creatinine 0.83 (0.5-1.4) mg/dL Estim Creat Clear Calc 116.5 Estimated GFR > 60 Random Glucose 82 (60-115) mg/dL Calcium 9.2 (8.4-10.2) mg/dL Total Bilirubin 0.5 (0.0-1.0) mg/dL AST 16 (5-37) U/L ALT 19 (0-40) U/L Alkaline Phosphatase 83 (39-117) U/L Total Protein 7.4 (6.5-8.0) g/dL Albumin 4.3 (3.5-5.0) g/dL Urine Color Yellow Urine Appearance Clear Urine pH 6.5 (5.0-9.0) Ur Specific [place] 1.025 (1.005-1.025) Urine Protein Negative (Neg-Trace) mg/dL Urine Glucose (UA) Negative (Negative) mg/dL Urine Ketones Negative (Negative) mg/dL Urine Blood Negative (Negative) Urine Nitrite Negative (Negative) Ur Leukocyte Esterase Negative (Negative) Salicylates < 5.0 L (15-30) mg/dL Urine Opiates Screen Not Detected (Not Detect) Ur Buprenorphine Scrn Not Detected (Not Detect) ng/mL Ur Oxycodone Screen Not Detected (Not Detect) ng/mL Urine Methadone Screen Not Detected (Not Detect) ng/mL Urine Fentanyl Screen Not Detected (Not Detect) Acetaminophen < 3 (<30) mcg/mL Ur Barbiturates Screen Not Detected (Not Detect) Ur Phencyclidine Scrn Not Detected (Not Detect) Ur Amphetamines Screen Not Detected (Not Detect) U Benzodiazepines Scrn Not Detected (Not Detect) Urine Cocaine Screen POSITIVE H (Not Detect) U Marijuana (THC) Screen POSITIVE H (Not Detect) Ethyl Alcohol < 10 mg/dL Discharge Plan Discharge Clinical Impression: Auditory hallucinations Patient Disposition: Still a Patient Interventions: Admission Worksheet (ED) Last Done: 07/02/24 20:26 Discharge Date/Time: 07/02/24 22:00
[2024-07-02 15:43] VITALS: RESP 16
[2024-07-02 16:17] LABS: MANUAL DIFF FLAG NO
[2024-07-02 16:34] LABS: Basophils Percent Auto 0.4 % (0-2); Eosinophils Absolute Auto 0.1 X10*3/uL (0.0-0.4); Eosinophils Percent Auto 1.6 % (0-4); Hematocrit 43.4 % (42.0-52.0); Hemoglobin 14.4 g/dl (14.0-18.0); Imm Gran Abs Auto 0.04 X10*3/uL (0.00-0.03); Imm Gran Pct Auto 0.6 % (0.0-0.4); Lymphocytes Absolute Auto 2.3 X10*3/uL (1.2-4.9); Lymphocytes Percent Auto 33.8 % (20-40); Mean Corpuscular HGB Conc 33.2 g/dl (31.0-36.0); Mean Corpuscular Hemoglobin 30.3 pg (27.0-33.0); Mean Corpuscular Volume 91.2 fL (80.0-98.0); Mean Platelet Volume 9.9 fL (9.4-12.4); Monocytes Absolute Auto 0.6 X10*3/uL (0.1-1.2); Monocytes Percent Auto 8.2 % (2-11); Neutrophils Absolute Auto 3.8 x10*3/uL (2.0-8.3); Neutrophils Percent Auto 55.4 % (45-73); Platelet Count 332 X10*3/uL (160-400); Red Blood Count 4.76 X10*6/uL (4.60-5.80); Red Cell Distribution Width 12.9 % (11.0-16.0); White Blood Count 6.8 X10*3/uL (4.8-10.8)
[2024-07-02 16:37] LABS: Alanine Aminotransferase 19 U/L (0-40); Albumin Level 4.3 g/dL (3.5-5.0); Anion Gap 10 (12-20); Aspartate Amino Transferase 16 U/L (5-37); Bilirubin Total 0.5 mg/dL (0.0-1.0); Blood Urea Nitrogen 18 mg/dL (9-16); Calcium 9.2 mg/dL (8.4-10.2); Carbon Dioxide 29 mmol/L (22-29); Chloride 108 mmol/L (96-108); Creatinine Clr Calc Pharmacy 116.5; Estimated Glomerular Filt Rate > 60; Ethanol < 10 mg/dL; Glucose Random 82 mg/dL (60-115); Sodium 143 mmol/L (135-145); Total Protein 7.4 g/dL (6.5-8.0)
[2024-07-02 17:09] LABS: Acetaminophen LAB < 3 mcg/mL (<30); Salicylate < 5.0 mg/dL (15-30)
[2024-07-02 17:10] LABS: Alkaline Phosphatase 83 U/L (39-117)
[2024-07-02 17:24] LABS: Appearance Urine Clear; Color Urine Yellow; Glucose Urine UA Negative (Negative); Leukocyte Esterase Urine Negative (Negative); Nitrite Urine Negative (Negative); PH 6.5 (5.0-9.0); Specific Gravity - Urine 1.025 (1.005-1.025); Urine Blood Negative (Negative); Urine Ketones Negative (Negative); Urine Protein Negative (Neg-Trace)
[2024-07-02 17:33] LABS: Amphetamine Screen Urine Not Detected (Not Detect); Barbiturates, Urine Not Detected (Not Detect); Benzodiazepines Screen Urine Not Detected (Not Detect); Buprenorphine Scr Not Detected (Not Detect); Cannabinoid Screen Urine POSITIVE (Not Detect); Cocaine Screen Urine POSITIVE (Not Detect); Fentanyl, urine Not Detected (Not Detect); Methadone Screen, Urine Not Detected (Not Detect); Opiate Screen Urine Not Detected (Not Detect); Oxycodone Screen Urine Not Detected (Not Detect); Phencyclidine Screen Urine Not Detected (Not Detect)
--- NOTE | 2024-07-02 19:19 | PC.NURSE ---
Caden reports that he is having auditory hallucinations of his brothers voice. He reports that he hears his brother telling him that no one is safe and to not trust anyone else. He reports that he knows the voices are not real but he hears them 24/7 and cannot get them to stop. he reports if someone doesn't get these voices to stop, I will kill someone or kill myself, I dont trust myself to be safe . Patient appears on edge whenever speaking to staff, he is very frustrated that he is feeling this way and is advocating to be inpatient.
--- NOTE | 2024-07-02 20:17 | PC.NURSE ---
Patient requested and given saltine crackers.
[2024-07-02 22:10] LABS: Alanine Aminotransferase 17 U/L (0-40); Alkaline Phosphatase 82 U/L (39-117); Anion Gap 14 (12-20); Aspartate Amino Transferase 19 U/L (5-37); Bilirubin Total 0.4 mg/dL (0.0-1.0); Blood Urea Nitrogen 18 mg/dL (9-16); Calcium 8.8 mg/dL (8.4-10.2); Carbon Dioxide 28 mmol/L (22-29); Chloride 106 mmol/L (96-108); Creatinine Clr Calc Pharmacy 119.4; Estimated Glomerular Filt Rate > 60; Glucose Random 96 mg/dL (60-115); Potassium 3.9 mmol/L (3.3-5.1); Sodium 144 mmol/L (135-145); Total Protein 6.9 g/dL (6.5-8.0)
[2024-07-02] MEDS: OLANZapine 5 MG TABLET PO (23:03)
[2024-07-02] MEDS: hydrOXYzine HCL 25 MG TABLET PO (23:03)
--- NOTE | 2024-07-03 00:15 | PC.ADMIT ---
Patient is a 43 year old single Frisian speaking male, admitted from the [facility] at 2200 07/02/24 and placed on 15 minute safety checks. Patient was medically cleared, evaluated by the CARE Team and deemed in need of IPLOC secondary to have depression and anxiety with SI and HI. Patient said he has a hx of Sarcoidosis and heart issues . Patient said he came to the ED because the voices won't stop and keep getting louder and louder . Caden said the voices tell me to do all kinds of things , but he would not give further details. Patient said he has been in psychiatric hospitals in the past and no one seems to be able to help him get rid of the voices. Caden said, I'm giving you all one more chance to get these voices to go away, and if they don't, when I leave here I'm going to do whatever the fuck the voices tell me to do. I don't care what it is they tell me to do, I'm tired of fighting them. Patient said the voice is My brother who 3 years ago, but I know it's not really my brother, but something that looks and sounds like my brother. Patient described having periods of time where he doesn't remember what has been happening around him and doesn't remember getting angry. A female friend of his Danay apparently became scared when she saw him talking out loud to the voices. She encouraged him to come to the ED. Patient said I've run a lot of people in my life away, and I get really angry when people talk in a condescending way to me, I get really angry. During the admission assessment, when patient was asked if he had ever been restrained before, he said If you think I need a restraint, you better have a lot of people around, because I guarantee I will hurt people. Patient signed paperwork and answered questions. His skin check was unremarkable. Patient denied any current SI, SI, said he is not really depressed or anxious, just very upset with the constant AH and VH. Caden mentioned that his friend Danay had told him he woke up angry and he is pretty sure it is the Seroquel. Patient ate a sanck, took HS meds and went to bed.
[2024-07-03 08:05] VITALS: BP 105/57; PULSE 54; RESP 16; TEMP 36.8; O2SAT 97
[2024-07-03] MEDS: Haloperidol Lactate Oral Conc 10 MG/5 ML ORAL.CONC 5 MG PO ×3 (10:42→21:54)
[2024-07-03] MEDS: OLANZapine 5 MG TABLET PO (11:00)
[2024-07-03] MEDS: Acetaminophen 325 MG TABLET 650 MG PO (11:41)
--- NOTE | 2024-07-03 12:11 | PC.NURSE ---
pt approached this credit underwriter complaining of hand pain 08/29. 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 Pt reports he is prescribed gabapentin for pain. Tylenol was the only medication ordered in pt JUL and was administered, effectiveness pending. Provider SUEW made aware. TW will contact [facility] to verify rx
[2024-07-03] MEDS: Gabapentin 400 MG CAPSULE 800 MG PO (14:33)
[2024-07-03 19:58] VITALS: BP 116/65; PULSE 63; RESP 18; TEMP 36.6; O2SAT 97
--- NOTE | 2024-07-03 20:25 | P.HPPS_ITS ---
HPI Date of Service: 07/03/24 Chief Complaint: crisis Sources of Information: patient interviewed, chart reviewed and crisis/core team assessment reviewed HPI Subjective Notes: [place] Warning and Conditional Voluntary Healthcare Proxy: No Guardianship: No Medical Problems Affecting Mental Status: No Narrative: Seen 215pm 43 yo male, reports an increase in CAH to suicide and kill others. Voices, that of his brother are what he hears. Brother ~2 years ago. Pt reports he will comply with all treatment to rid himself of this sx. Describes dissociative episodes with increase voices over the past few months. Affirms anniversary time. Also reports night terrors and awakening in one place without memory of how he arrived there. Describes other medical/neurological sx which will need further assessment. Past Psychiatric History: IP: Several OP: None currently Trials: Several Medical Evaluation Reviewed: Yes [facility] Medical History (Updated 07/03/24 @ 20:42 by Marion Borrego APRN) PTSD (post-traumatic stress disorder) Screening examination for STI Syncopal episodes Major depression with psychotic features Generalized anxiety disorder Narrative: Several TBI's Reports intermittent blood in stool and urine Headache ?C-Spine injury a few months ago-diagnostics negative pt reports. Surgical History History of dental surgery History of hand surgery History of lung surgery Family History: schizophrenia Substance History: cocaine, cannabis Trauma History: affirms Diagnostics Vital Signs (24Hr): Vital Signs - 24 hr 07/03/24 08:05 07/03/24 19:58 Temperature 98.2 F 98 F Pulse Rate 54 63 Respiratory Rate 16 18 Blood Pressure 105/57 L 116/65 Pulse Oximetry 97 97 Oxygen Delivery Method Room Air Room Air BMI result Body Mass Index 23.0 Labs 07/02/24 16:10 07/02/24 21:49 Labs: Laboratory Results - last 48 hr 07/02/24 07/02/24 07/02/24 16:10 17:17 21:49 WBC 6.8 RBC 4.76 Hgb 14.4 Hct 43.4 MCV 91.2 MCH 30.3 MCHC 33.2 RDW 12.9 Plt Count 332 MPV 9.9 Immature Gran % (Auto) 0.6 H Neut % (Auto) 55.4 Lymph % (Auto) 33.8 [place] % (Auto) 8.2 Eos % (Auto) 1.6 Baso % (Auto) 0.4 Lymph # (Auto) 2.3 [place] # (Auto) 0.6 Eos # (Auto) 0.1 Baso # (Auto) 0.0 Abs Immat Gran (auto) 0.04 H Absolute Neuts (auto) 3.8 Absolute Nucleated RBC 0.000 Nucleated RBC % (auto) 0.0 Sodium 143 144 Potassium 4.0 3.9 Chloride 108 106 Carbon Dioxide 29 28 Anion Gap 10 L 14 BUN 18 H 18 H Creatinine 0.83 0.81 Estim Creat Clear Calc 116.5 119.4 Estimated GFR > 60 > 60 Random Glucose 82 96 Calcium 9.2 8.8 Total Bilirubin 0.5 0.4 AST 16 19 ALT 19 17 Alkaline Phosphatase 83 82 Total Protein 7.4 6.9 Albumin 4.3 4.0 Urine Color Yellow Urine Appearance Clear Urine pH 6.5 Ur Specific [place] 1.025 Urine Protein Negative Urine Glucose (UA) Negative Urine Ketones Negative Urine Blood Negative Urine Nitrite Negative Ur Leukocyte Esterase Negative Salicylates < 5.0 L Urine Opiates Screen Not Detected Ur Buprenorphine Scrn Not Detected Ur Oxycodone Screen Not Detected Urine Methadone Screen Not Detected Urine Fentanyl Screen Not Detected Acetaminophen < 3 Ur Barbiturates Screen Not Detected Ur Phencyclidine Scrn Not Detected Ur Amphetamines Screen Not Detected U Benzodiazepines Scrn Not Detected Urine Cocaine Screen POSITIVE H U Marijuana (THC) Screen POSITIVE H Ethyl Alcohol < 10 Meds/Allergies Meds Home Medications ?Medication ?Instructions ?Recorded ?Confirmed ?Type clonazepam 1 mg tablet 1 mg PO BID 07/03/24 07/03/24 History gabapentin 800 mg PO TID PRN Pain 07/03/24 07/03/24 History quetiapine 150 mg PO BEDTIME 07/03/24 07/03/24 History Allergies Allergies Allergy/AdvReac Type Severity Reaction Status Date / Time adhesive tape Allergy Intermediate Hives Verified 07/02/24 15:19 trazodone Allergy Mild Hallucinati Verified 07/02/24 15:19 ons nabumetone AdvReac Intermediate blood in Verified 07/02/24 15:19 stool Mental Status Exam Mental Status Exam Patient Appearance: Fatigued Patient Orientation: Person, Place, Time and Situation Level of Consciousness: Alert Patient Behavior: Talkative Mood Description: Constricted and Depressed Affect Description: Constricted Patient Cognition Impaired: No Ability to Follow Directions: Good Speech Pattern: Spontaneous Speech Memory Description: Episodic Impaired Hallucinations: Auditory and Visual Perceptual Disturbances: Depersonalization and Derealization Thought Process: Rumination Thought Content: positive for Perseveration, positive for Suicidal Ideation and positive for Homicidal Ideation Depressive Symptoms: Thoughts of /Suicide Judgement: Fair Assessment & Plan Assessment & Plan (1) Major depression with psychotic features: Status: Acute Code(s): F32.3 - Major depressive disorder, single episode, severe with psychotic features (2) PTSD (post-traumatic stress disorder): Status: Acute Code(s): F43.10 - Post-traumatic stress disorder, unspecified Plan PTSD, Recurrent Major Depression with Psychotic Features. Plan: Admit, 15 min checks, CV Continue Klonopin, Gabapentin, Seroquel Haldol 5 mg tid Depakote ER 500 mg HS Diagnostics as needed Collateral contact Encourage full milieu Discharge planning Patient educated on: medication risk/benefits and therapeutic strategies Reason for continued inpatient stay Substantial Risk for: med/psych decompensation Statement Statement: I have reviewed the history and physical and performed a pertinent examination on my patient. No changes have occurred unless specified. If the History and Physical was not performed prior to admission, the Hospitalist's service will be consulted for completing the admission physical. Time Spent With Patient Time: Total time managing care of this patient today ____ minutes.
[2024-07-03] MEDS: clonazePAM 1 MG TABLET PO (21:54)
[2024-07-03] MEDS: Divalproex Sodium ER 500 MG TAB.ER.24H PO (21:54)
[2024-07-03] MEDS: QUEtiapine Fumarate 50 MG TABLET 150 MG PO (21:55)
[2024-07-04 08:00] VITALS: BP 106/62; PULSE 75; RESP 16; TEMP 36.6; O2SAT 98
[2024-07-04] MEDS: clonazePAM 1 MG TABLET PO ×2 (09:08→21:22)
[2024-07-04] MEDS: Haloperidol Lactate Oral Conc 10 MG/5 ML ORAL.CONC 5 MG PO ×4 (09:08→21:22)
--- NOTE | 2024-07-04 11:43 | HO.PSYCHPN ---
Subjective Subjective Date of Service: 07/04/24 Reason For Visit: crisis Subjective Notes: Section 12B Healthcare Proxy: No Guardianship: No Medical Problems Affecting Mental Status: No Interim History: CAT Completed Tolerating Haldol, Depakote. Denies SE. Reports decrease in sx without absence which we continue to work on. Medication Compliance: Yes Side effects from medications: No Attending Groups: No Review of Systems Acute medical concerns: No Medical Review of Systems: unchanged Review of Systems Review of Systems Yes all other systems are reviewed and are negative Mental Status Exam Mental Status Exam Patient Appearance: Fatigued Patient Orientation: Person, Place, Time and Situation Level of Consciousness: Alert Patient Behavior: Talkative Mood Description: Constricted and Depressed Affect Description: Constricted Patient Cognition Impaired: No Ability to Follow Directions: Good Speech Pattern: Spontaneous Speech Memory Description: Episodic Impaired Hallucinations: Auditory and Visual Perceptual Disturbances: Depersonalization and Derealization Thought Process: Rumination Thought Content: positive for Perseveration, positive for Suicidal Ideation and positive for Homicidal Ideation Depressive Symptoms: Thoughts of /Suicide Judgement: Fair Diagnostics Vital Signs (24Hr): Vital Signs - 24 hr 07/03/24 19:58 07/04/24 08:00 Temperature 98 F 97.9 F Pulse Rate 63 75 Respiratory Rate 18 16 Blood Pressure 116/65 106/62 Pulse Oximetry 97 98 Oxygen Delivery Method Room Air Room Air BMI result Body Mass Index 23.0 Labs 07/02/24 16:10 07/02/24 21:49 Labs: Laboratory Results - last 48 hr 07/02/24 07/02/24 07/02/24 16:10 17:17 21:49 WBC 6.8 RBC 4.76 Hgb 14.4 Hct 43.4 MCV 91.2 MCH 30.3 MCHC 33.2 RDW 12.9 Plt Count 332 MPV 9.9 Immature Gran % (Auto) 0.6 H Neut % (Auto) 55.4 Lymph % (Auto) 33.8 [place] % (Auto) 8.2 Eos % (Auto) 1.6 Baso % (Auto) 0.4 Lymph # (Auto) 2.3 [place] # (Auto) 0.6 Eos # (Auto) 0.1 Baso # (Auto) 0.0 Abs Immat Gran (auto) 0.04 H Absolute Neuts (auto) 3.8 Absolute Nucleated RBC 0.000 Nucleated RBC % (auto) 0.0 Sodium 143 144 Potassium 4.0 3.9 Chloride 108 106 Carbon Dioxide 29 28 Anion Gap 10 L 14 BUN 18 H 18 H Creatinine 0.83 0.81 Estim Creat Clear Calc 116.5 119.4 Estimated GFR > 60 > 60 Random Glucose 82 96 Calcium 9.2 8.8 Total Bilirubin 0.5 0.4 AST 16 19 ALT 19 17 Alkaline Phosphatase 83 82 Total Protein 7.4 6.9 Albumin 4.3 4.0 Urine Color Yellow Urine Appearance Clear Urine pH 6.5 Ur Specific [place] 1.025 Urine Protein Negative Urine Glucose (UA) Negative Urine Ketones Negative Urine Blood Negative Urine Nitrite Negative Ur Leukocyte Esterase Negative Salicylates < 5.0 L Urine Opiates Screen Not Detected Ur Buprenorphine Scrn Not Detected Ur Oxycodone Screen Not Detected Urine Methadone Screen Not Detected Urine Fentanyl Screen Not Detected Acetaminophen < 3 Ur Barbiturates Screen Not Detected Ur Phencyclidine Scrn Not Detected Ur Amphetamines Screen Not Detected U Benzodiazepines Scrn Not Detected Urine Cocaine Screen POSITIVE H U Marijuana (THC) Screen POSITIVE H Ethyl Alcohol < 10 Medications Medications Current Medications Acetaminophen (Acetaminophen 325 Mg Tablet) 650 mg PO Q6H PRN PRN Reason: Headache/Pain, Scale 1-10 Last Admin: 07/03/24 11:41 Dose: 650 mg Al Hydroxide/Mg Hydroxide (Magnesium Hydrox/Alum Hydrox 30 Ml Oral.Susp) 30 ml PO Q6H PRN PRN Reason: Heartburn/Nausea Clonazepam (Clonazepam 1 Mg Tablet) 1 mg PO BID [facility] Last Admin: 07/04/24 09:08 Dose: 1 mg Divalproex Sodium (Divalproex Sodium Er 500 Mg Tab.Er.24h) 500 mg PO BEDTIME [facility] Last Admin: 07/03/24 21:54 Dose: 500 mg Gabapentin (Gabapentin 400 Mg Capsule) 800 mg PO TID PRN PRN Reason: pain/discomfort Last Admin: 07/03/24 14:33 Dose: 800 mg Haloperidol Lactate (Haloperidol Lactate Oral Conc 10 Mg/5 Ml Oral.Conc) 5 mg PO TID [facility] Last Admin: 07/04/24 09:08 Dose: 5 mg Hydroxyzine HCl (Hydroxyzine Hcl 25 Mg Tablet) 25 mg PO Q6H PRN PRN Reason: mild anxiety Last Admin: 07/02/24 23:03 Dose: 25 mg Magnesium Hydroxide (Milk Of Magnesia 30 Ml Oral.Susp) 30 ml PO DAILY PRN PRN Reason: Constipation Nicotine Polacrilex (Nicotine Polacrilex 2 Mg Gum) 4 mg BUCCAL Q2H PRN PRN Reason: Nicotine Cravings Olanzapine (Olanzapine 5 Mg Tablet) 5 mg PO Q4H PRN PRN Reason: Psychosis Last Admin: 07/03/24 11:00 Dose: 5 mg Quetiapine Fumarate (Quetiapine Fumarate 50 Mg Tablet) 150 mg PO BEDTIME [facility] Last Admin: 07/03/24 21:55 Dose: 150 mg Allergies Allergies Allergy/AdvReac Type Severity Reaction Status Date / Time adhesive tape Allergy Intermediate Hives Verified 07/02/24 15:19 trazodone Allergy Mild Hallucinati Verified 07/02/24 15:19 ons nabumetone AdvReac Intermediate blood in Verified 07/02/24 15:19 stool Assessment & Plan Assessment & Plan (1) Major depression with psychotic features: Status: Acute Code(s): F32.3 - Major depressive disorder, single episode, severe with psychotic features (2) PTSD (post-traumatic stress disorder): Status: Acute Code(s): F43.10 - Post-traumatic stress disorder, unspecified Plan PTSD, Recurrent Major Depression with Psychotic Features. Plan: Admit, 15 min checks, CV Continue Klonopin, Gabapentin, Seroquel Haldol 5 mg tid Depakote ER 500 mg HS Diagnostics as needed Collateral contact Encourage full milieu Discharge planning 07/04: Increase Haldol, Depakote MRI Brain Reason for continued inpatient stay Substantial Risk for: rapid decompensation and med/psych decompensation Time Spent With Patient Time: Total time managing care of this patient today ____ minutes.
[2024-07-04] MEDS: Gabapentin 400 MG CAPSULE 800 MG PO (17:28)
[2024-07-04 20:00] VITALS: BP 124/74; PULSE 89; RESP 16; TEMP 37.1; O2SAT 97
[2024-07-04] MEDS: Divalproex Sodium ER 500 MG TAB.ER.24H PO (21:21)
[2024-07-04] MEDS: QUEtiapine Fumarate 50 MG TABLET 150 MG PO (21:21)
[2024-07-05 08:27] VITALS: BP 135/69; PULSE 51; TEMP 36.6; O2SAT 95
[2024-07-05] MEDS: Haloperidol Lactate Oral Conc 10 MG/5 ML ORAL.CONC 5 MG PO ×4 (10:13→21:02)
[2024-07-05] MEDS: clonazePAM 1 MG TABLET PO ×2 (10:13→21:02)
[2024-07-05] MEDS: Divalproex Sodium ER 500 MG TAB.ER.24H PO ×2 (10:13→21:02)
--- NOTE | 2024-07-05 10:38 | P.PNPSI_ITS ---
Subjective Subjective Date of Service: 07/05/24 Reason For Visit: crisis Subjective Notes: Conditional Voluntary Healthcare Proxy: No Guardianship: No Medical Problems Affecting Mental Status: No Interim History: Pt signed CV. Continues to report improvement, but sx are still present. Medication Compliance: Yes Side effects from medications: No Attending Groups: No Review of Systems Acute medical concerns: No Review of Systems Review of Systems MRI pending Mental Status Exam Mental Status Exam Patient Appearance: Fatigued Patient Orientation: Person, Place, Time and Situation Level of Consciousness: Alert Patient Behavior: Talkative Mood Description: Constricted and Depressed Affect Description: Constricted Patient Cognition Impaired: No Ability to Follow Directions: Good Speech Pattern: Spontaneous Speech Memory Description: Episodic Impaired Hallucinations: Auditory and Visual Perceptual Disturbances: Depersonalization and Derealization Thought Process: Rumination Thought Content: positive for Perseveration, positive for Suicidal Ideation and positive for Homicidal Ideation Depressive Symptoms: Thoughts of /Suicide Judgement: Fair Diagnostics Vital Signs (24Hr): Vital Signs - 24 hr 07/04/24 20:00 07/05/24 08:27 Temperature 98.7 F 98 F Pulse Rate 89 51 Respiratory Rate 16 Blood Pressure 124/74 135/69 Pulse Oximetry 97 95 Oxygen Delivery Method Room Air Room Air BMI result Body Mass Index 23.0 Labs 07/02/24 16:10 07/02/24 21:49 Imaging Radiology Impressions: ITS Impressions Head CT 07/04/24 12:44 IMPRESSION: No acute or structural brain abnormality by CT. Electronically signed by: Evan Valverde MD 07/04/2024 01:06 PM [facility] [place] Medications Current Medications Acetaminophen (Acetaminophen 325 Mg Tablet) 650 mg PO Q6H PRN PRN Reason: Headache/Pain, Scale 1-10 Last Admin: 07/03/24 11:41 Dose: 650 mg Al Hydroxide/Mg Hydroxide (Magnesium Hydrox/Alum Hydrox 30 Ml Oral.Susp) 30 ml PO Q6H PRN PRN Reason: Heartburn/Nausea Clonazepam (Clonazepam 1 Mg Tablet) 1 mg PO BID [facility] Last Admin: 07/05/24 10:13 Dose: 1 mg Divalproex Sodium (Divalproex Sodium Er 500 Mg Tab.Er.24h) 500 mg PO BID [facility] Last Admin: 07/05/24 10:13 Dose: 500 mg Gabapentin (Gabapentin 400 Mg Capsule) 800 mg PO TID PRN PRN Reason: pain/discomfort Last Admin: 07/04/24 17:28 Dose: 800 mg Haloperidol Lactate (Haloperidol Lactate Oral Conc 10 Mg/5 Ml Oral.Conc) 5 mg PO QID [facility] Last Admin: 07/05/24 10:13 Dose: 5 mg Hydroxyzine HCl (Hydroxyzine Hcl 25 Mg Tablet) 25 mg PO Q6H PRN PRN Reason: mild anxiety Last Admin: 07/02/24 23:03 Dose: 25 mg Magnesium Hydroxide (Milk Of Magnesia 30 Ml Oral.Susp) 30 ml PO DAILY PRN PRN Reason: Constipation Nicotine Polacrilex (Nicotine Polacrilex 2 Mg Gum) 4 mg BUCCAL Q2H PRN PRN Reason: Nicotine Cravings Olanzapine (Olanzapine 5 Mg Tablet) 5 mg PO Q4H PRN PRN Reason: Psychosis Last Admin: 07/03/24 11:00 Dose: 5 mg Quetiapine Fumarate (Quetiapine Fumarate 50 Mg Tablet) 150 mg PO BEDTIME [facility] Last Admin: 07/04/24 21:21 Dose: 150 mg Simethicone (Simethicone 80 Mg Tab.Chew) 80 mg PO QIDWMHS [facility] Allergies Allergies Allergy/AdvReac Type Severity Reaction Status Date / Time adhesive tape Allergy Intermediate Hives Verified 07/02/24 15:19 trazodone Allergy Mild Hallucinati Verified 07/02/24 15:19 ons nabumetone AdvReac Intermediate blood in Verified 07/02/24 15:19 stool Assessment & Plan Assessment & Plan (1) Major depression with psychotic features: Status: Acute Code(s): F32.3 - Major depressive disorder, single episode, severe with psychotic features (2) PTSD (post-traumatic stress disorder): Status: Acute Code(s): F43.10 - Post-traumatic stress disorder, unspecified Plan PTSD, Recurrent Major Depression with Psychotic Features. Plan: Admit, 15 min checks, CV Continue Klonopin, Gabapentin, Seroquel Haldol 5 mg tid Depakote ER 500 mg HS Diagnostics as needed Collateral contact Encourage full milieu Discharge planning 07/05- MRI Pending When results are in, continue med titrations/additions Reason for continued inpatient stay Substantial Risk for: rapid decompensation Time Spent With Patient Time: Total time managing care of this patient today ____ minutes.
[2024-07-05] MEDS: Simethicone 80 MG TAB.CHEW PO ×2 (13:36→21:02)
[2024-07-05] MEDS: hydrOXYzine HCL 25 MG TABLET PO (14:08)
[2024-07-05 20:00] VITALS: BP 118/53; PULSE 85; TEMP 36.8; O2SAT 97
[2024-07-06 08:06] VITALS: BP 131/71; PULSE 93; TEMP 36.6; O2SAT 100
[2024-07-06] MEDS: Simethicone 80 MG TAB.CHEW PO (09:18)
[2024-07-06] MEDS: Haloperidol Lactate Oral Conc 10 MG/5 ML ORAL.CONC 5 MG PO ×4 (09:18→20:32)
[2024-07-06] MEDS: clonazePAM 1 MG TABLET PO ×2 (09:18→20:31)
[2024-07-06] MEDS: Divalproex Sodium ER 500 MG TAB.ER.24H PO ×2 (09:19→20:32)
--- NOTE | 2024-07-06 09:28 | P.PNPSI_ITS ---
Subjective Subjective Date of Service: 07/07/24 Reason For Visit: crisis Subjective Notes: Conditional Voluntary Healthcare Proxy: No Guardianship: No Interim History: Review of MRI results. Will add Olanzapine with the goal of quieting voices. Pt concurs, just fix it Medication Compliance: Yes Side effects from medications: No Attending Groups: Intermittent Review of Systems Acute medical concerns: No Review of Systems Review of Systems denies Mental Status Exam Mental Status Exam Patient Appearance: Fatigued Patient Orientation: Person, Place, Time and Situation Level of Consciousness: Alert Patient Behavior: Talkative Mood Description: Constricted and Depressed Affect Description: Constricted Patient Cognition Impaired: No Ability to Follow Directions: Good Speech Pattern: Spontaneous Speech Memory Description: Episodic Impaired Hallucinations: Auditory and Visual Perceptual Disturbances: Depersonalization and Derealization Thought Process: Rumination Thought Content: positive for Perseveration, positive for Suicidal Ideation and positive for Homicidal Ideation Depressive Symptoms: Thoughts of /Suicide Judgement: Fair Diagnostics Vital Signs (24Hr): Vital Signs - 24 hr 07/05/24 20:00 07/06/24 08:06 Temperature 98.2 F 98 F Pulse Rate 85 93 Blood Pressure 118/53 L 131/71 Pulse Oximetry 97 100 Oxygen Delivery Method Room Air Room Air BMI result Body Mass Index 23.0 Labs 07/02/24 16:10 07/02/24 21:49 Imaging Radiology Impressions: ITS Impressions Head CT 07/04/24 12:44 IMPRESSION: No acute or structural brain abnormality by CT. Electronically signed by: Evan Valverde MD 07/04/2024 01:06 PM EST RP Brain MRI 07/05/24 15:05 IMPRESSION: 1. No intracranial hemorrhage, acute infarction, mass effect, or edema. There are no significant sequela of trauma by MRI. 2. A few scattered tiny white matter foci, nonspecific but most likely sequela of minimal microangiopathy. Electronically signed by: Manny Upton MD 07/05/2024 03:33 PM EST RP Medications Medications Current Medications Acetaminophen (Acetaminophen 325 Mg Tablet) 650 mg PO Q6H PRN PRN Reason: Headache/Pain, Scale 1-10 Last Admin: 07/03/24 11:41 Dose: 650 mg Al Hydroxide/Mg Hydroxide (Magnesium Hydrox/Alum Hydrox 30 Ml Oral.Susp) 30 ml PO Q6H PRN PRN Reason: Heartburn/Nausea Clonazepam (Clonazepam 1 Mg Tablet) 1 mg PO BID [facility] Last Admin: 07/06/24 09:18 Dose: 1 mg Divalproex Sodium (Divalproex Sodium Er 500 Mg Tab.Er.24h) 500 mg PO BID [facility] Last Admin: 07/06/24 09:19 Dose: 500 mg Gabapentin (Gabapentin 400 Mg Capsule) 800 mg PO TID PRN PRN Reason: pain/discomfort Last Admin: 07/04/24 17:28 Dose: 800 mg Haloperidol Lactate (Haloperidol Lactate Oral Conc 10 Mg/5 Ml Oral.Conc) 5 mg PO QID [facility] Last Admin: 07/06/24 09:18 Dose: 5 mg Hydroxyzine HCl (Hydroxyzine Hcl 25 Mg Tablet) 25 mg PO Q6H PRN PRN Reason: mild anxiety Last Admin: 07/05/24 14:08 Dose: 25 mg Magnesium Hydroxide (Milk Of Magnesia 30 Ml Oral.Susp) 30 ml PO DAILY PRN PRN Reason: Constipation Nicotine Polacrilex (Nicotine Polacrilex 2 Mg Gum) 4 mg BUCCAL Q2H PRN PRN Reason: Nicotine Cravings Olanzapine (Olanzapine 5 Mg Tablet) 5 mg PO Q4H PRN PRN Reason: Psychosis Last Admin: 07/03/24 11:00 Dose: 5 mg Quetiapine Fumarate (Quetiapine Fumarate 50 Mg Tablet) 150 mg PO BEDTIME [facility] Last Admin: 07/05/24 21:03 Dose: Not Given Simethicone (Simethicone 80 Mg Tab.Chew) 80 mg PO QIDWMHS [facility] Last Admin: 07/06/24 09:18 Dose: 80 mg Allergies Allergies Allergy/AdvReac Type Severity Reaction Status Date / Time adhesive tape Allergy Intermediate Hives Verified 07/02/24 15:19 trazodone Allergy Mild Hallucinati Verified 07/02/24 15:19 ons nabumetone AdvReac Intermediate blood in Verified 07/02/24 15:19 stool Assessment & Plan Assessment & Plan (1) Major depression with psychotic features: Status: Acute Code(s): F32.3 - Major depressive disorder, single episode, severe with psychotic features (2) PTSD (post-traumatic stress disorder): Status: Acute Code(s): F43.10 - Post-traumatic stress disorder, unspecified Plan PTSD, Recurrent Major Depression with Psychotic Features. Plan: Admit, 15 min checks, CV Continue Klonopin, Gabapentin, Seroquel Haldol 5 mg tid Depakote ER 500 mg HS Diagnostics as needed Collateral contact Encourage full milieu Discharge planning 07/05- MRI Pending When results are in, continue med titrations/additions 07/06- Olanzapine 5 mg bid Reason for continued inpatient stay Substantial Risk for: rapid decompensation Time Spent With Patient Time: Total time managing care of this patient today ____ minutes.
[2024-07-06] MEDS: OLANZapine 5 MG TABLET PO ×3 (13:15→20:32)
[2024-07-06] MEDS: Acetaminophen 325 MG TABLET 650 MG PO (17:41)
[2024-07-06 20:00] VITALS: BP 134/86; PULSE 95; TEMP 37.1; O2SAT 98
[2024-07-07 08:00] VITALS: BP 114/57; PULSE 78; RESP 16; TEMP 36.9; O2SAT 96
[2024-07-07] MEDS: Haloperidol Lactate Oral Conc 10 MG/5 ML ORAL.CONC 5 MG PO ×4 (09:36→20:15)
[2024-07-07] MEDS: Divalproex Sodium ER 500 MG TAB.ER.24H PO ×2 (09:36→20:17)
[2024-07-07] MEDS: OLANZapine 5 MG TABLET PO ×2 (09:36→20:17)
[2024-07-07] MEDS: clonazePAM 1 MG TABLET PO ×2 (09:36→20:17)
--- NOTE | 2024-07-07 09:39 | HO.PSYCHPN ---
Subjective Subjective Date of Service: 07/07/24 Reason For Visit: crisis Subjective Notes: Conditional Voluntary Healthcare Proxy: No Guardianship: No Medical Problems Affecting Mental Status: No Interim History: No voices today Tolerating changes, reports absence of sx today. Will allow some time to see if efficacy persists or titration is needed. Reports GI upset-stool cultures pending, pt, on admit reporting GIB sx Medication Compliance: Yes Side effects from medications: No Attending Groups: Intermittent Review of Systems Acute medical concerns: No Review of Systems Review of Systems GI sx Mental Status Exam Mental Status Exam Patient Appearance: Fatigued Patient Orientation: Person, Place, Time and Situation Level of Consciousness: Alert Patient Behavior: Talkative Mood Description: Constricted and Depressed Affect Description: Constricted Patient Cognition Impaired: No Ability to Follow Directions: Good Speech Pattern: Spontaneous Speech Memory Description: Episodic Impaired Hallucinations: None Perceptual Disturbances: Depersonalization and Derealization Thought Process: Rumination Thought Content: positive for Perseveration, positive for Suicidal Ideation and positive for Homicidal Ideation Depressive Symptoms: Thoughts of /Suicide Judgement: Fair Diagnostics Vital Signs (24Hr): Vital Signs - 24 hr 07/06/24 20:00 Temperature 98.8 F Pulse Rate 95 Blood Pressure 134/86 Pulse Oximetry 98 Oxygen Delivery Method Room Air BMI result Body Mass Index 23.0 Labs 07/02/24 16:10 07/02/24 21:49 Imaging Radiology Impressions: ITS Impressions Head CT 07/04/24 12:44 IMPRESSION: No acute or structural brain abnormality by CT. Electronically signed by: Evan aVlverde MD 07/04/2024 01:06 PM EST RP Brain MRI 07/05/24 15:05 IMPRESSION: 1. No intracranial hemorrhage, acute infarction, mass effect, or edema. There are no significant sequela of trauma by MRI. 2. A few scattered tiny white matter foci, nonspecific but most likely sequela of minimal microangiopathy. Electronically signed by: Manny Upton MD 07/05/2024 03:33 PM EST RP Medications Medications Current Medications Acetaminophen (Acetaminophen 325 Mg Tablet) 650 mg PO Q6H PRN PRN Reason: Headache/Pain, Scale 1-10 Last Admin: 07/06/24 17:41 Dose: 650 mg Al Hydroxide/Mg Hydroxide (Magnesium Hydrox/Alum Hydrox 30 Ml Oral.Susp) 30 ml PO Q6H PRN PRN Reason: Heartburn/Nausea Clonazepam (Clonazepam 1 Mg Tablet) 1 mg PO BID [facility] Last Admin: 07/07/24 09:36 Dose: 1 mg Divalproex Sodium (Divalproex Sodium Er 500 Mg Tab.Er.24h) 500 mg PO BID [facility] Last Admin: 07/07/24 09:36 Dose: 500 mg Gabapentin (Gabapentin 400 Mg Capsule) 800 mg PO TID PRN PRN Reason: pain/discomfort Last Admin: 07/04/24 17:28 Dose: 800 mg Haloperidol Lactate (Haloperidol Lactate Oral Conc 10 Mg/5 Ml Oral.Conc) 5 mg PO QID [facility] Last Admin: 07/07/24 09:36 Dose: 5 mg Hydroxyzine HCl (Hydroxyzine Hcl 25 Mg Tablet) 25 mg PO Q6H PRN PRN Reason: mild anxiety Last Admin: 07/05/24 14:08 Dose: 25 mg Magnesium Hydroxide (Milk Of Magnesia 30 Ml Oral.Susp) 30 ml PO DAILY PRN PRN Reason: Constipation Nicotine Polacrilex (Nicotine Polacrilex 2 Mg Gum) 4 mg BUCCAL Q2H PRN PRN Reason: Nicotine Cravings Olanzapine (Olanzapine 5 Mg Tablet) 5 mg PO Q4H PRN PRN Reason: Psychosis Last Admin: 07/06/24 17:53 Dose: 5 mg Olanzapine (Olanzapine 5 Mg Tablet) 5 mg PO BID [facility] Last Admin: 07/07/24 09:36 Dose: 5 mg Quetiapine Fumarate (Quetiapine Fumarate 50 Mg Tablet) 150 mg PO BEDTIME [facility] Last Admin: 07/06/24 20:32 Dose: Not Given Simethicone (Simethicone 80 Mg Tab.Chew) 80 mg PO QIDWMHS [facility] Last Admin: 07/07/24 09:37 Dose: Not Given Allergies Allergies Allergy/AdvReac Type Severity Reaction Status Date / Time adhesive tape Allergy Intermediate Hives Verified 07/02/24 15:19 trazodone Allergy Mild Hallucinati Verified 07/02/24 15:19 ons nabumetone AdvReac Intermediate blood in Verified 07/02/24 15:19 stool Assessment & Plan Assessment & Plan (1) Major depression with psychotic features: Status: Acute Code(s): F32.3 - Major depressive disorder, single episode, severe with psychotic features (2) PTSD (post-traumatic stress disorder): Status: Acute Code(s): F43.10 - Post-traumatic stress disorder, unspecified Plan PTSD, Recurrent Major Depression with Psychotic Features. Plan: Admit, 15 min checks, CV Continue Klonopin, Gabapentin, Seroquel Haldol 5 mg tid Depakote ER 500 mg HS Diagnostics as needed Collateral contact Encourage full milieu Discharge planning 07/05- MRI Pending When results are in, continue med titrations/additions 07/07- stool culture, pt reported hx GIB continue to monitor with recent med changes Reason for continued inpatient stay Substantial Risk for: rapid decompensation and med/psych decompensation Time Spent With Patient Time: Total time managing care of this patient today ____ minutes.
--- NOTE | 2024-07-07 16:09 | PC.NURSE ---
pt approached twice today to remind of need to collect stool sample. Pt states I don;t have to go. I'll let you know .
[2024-07-07] MEDS: Gabapentin 400 MG CAPSULE 800 MG PO (20:17)
[2024-07-07] MEDS: hydrOXYzine HCL 25 MG TABLET PO (20:27)
--- NOTE | 2024-07-08 05:00 | PC.NURSE ---
Patient refused Simethecone, claims It gives me diarrhea . Patient also refused Seroquel and stated It makes me really cranky .
[2024-07-08 08:00] VITALS: BP 118/77; PULSE 78; RESP 16; TEMP 36.3; O2SAT 95
--- NOTE | 2024-07-08 08:28 | HO.PSYCHPN ---
Subjective Subjective Date of Service: 07/08/24 Reason For Visit: crisis Subjective Notes: Conditional Voluntary Healthcare Proxy: No Guardianship: No Medical Problems Affecting Mental Status: No Interim History: Will discharge on 07/10. Feeling improved. Symptoms managed Pleased with results thus far. Medication Compliance: Yes Side effects from medications: No Attending Groups: No Review of Systems Acute medical concerns: No Review of Systems Review of Systems Yes all other systems are reviewed and are negative Mental Status Exam Mental Status Exam Patient Appearance: Fatigued Patient Orientation: Person, Place, Time and Situation Level of Consciousness: Alert Patient Behavior: Talkative Mood Description: Constricted and Depressed Affect Description: Constricted Patient Cognition Impaired: No Ability to Follow Directions: Good Speech Pattern: Spontaneous Speech Memory Description: Episodic Impaired Hallucinations: None Perceptual Disturbances: Depersonalization and Derealization Thought Process: Rumination Thought Content: positive for Perseveration Judgement: Good Diagnostics Vital Signs (24Hr): BMI result Body Mass Index 23.0 Labs 07/02/24 16:10 07/02/24 21:49 Imaging Radiology Impressions: ITS Impressions Head CT 07/04/24 12:44 IMPRESSION: No acute or structural brain abnormality by CT. Electronically signed by: Evan Valverde MD 07/04/2024 01:06 PM EST RP Brain MRI 07/05/24 15:05 IMPRESSION: 1. No intracranial hemorrhage, acute infarction, mass effect, or edema. There are no significant sequela of trauma by MRI. 2. A few scattered tiny white matter foci, nonspecific but most likely sequela of minimal microangiopathy. Electronically signed by: Manny Upton MD 07/05/2024 03:33 PM EST RP Medications Medications Current Medications Acetaminophen (Acetaminophen 325 Mg Tablet) 650 mg PO Q6H PRN PRN Reason: Headache/Pain, Scale 1-10 Last Admin: 07/06/24 17:41 Dose: 650 mg Al Hydroxide/Mg Hydroxide (Magnesium Hydrox/Alum Hydrox 30 Ml Oral.Susp) 30 ml PO Q6H PRN PRN Reason: Heartburn/Nausea Clonazepam (Clonazepam 1 Mg Tablet) 1 mg PO BID [facility] Last Admin: 07/07/24 20:17 Dose: 1 mg Divalproex Sodium (Divalproex Sodium Er 500 Mg Tab.Er.24h) 500 mg PO BID [facility] Last Admin: 07/07/24 20:17 Dose: 500 mg Gabapentin (Gabapentin 400 Mg Capsule) 800 mg PO TID PRN PRN Reason: pain/discomfort Last Admin: 07/07/24 20:17 Dose: 800 mg Haloperidol Lactate (Haloperidol Lactate Oral Conc 10 Mg/5 Ml Oral.Conc) 5 mg PO QID [facility] Last Admin: 07/07/24 20:15 Dose: 5 mg Hydroxyzine HCl (Hydroxyzine Hcl 25 Mg Tablet) 25 mg PO Q6H PRN PRN Reason: mild anxiety Last Admin: 07/07/24 20:27 Dose: 25 mg Magnesium Hydroxide (Milk Of Magnesia 30 Ml Oral.Susp) 30 ml PO DAILY PRN PRN Reason: Constipation Nicotine Polacrilex (Nicotine Polacrilex 2 Mg Gum) 4 mg BUCCAL Q2H PRN PRN Reason: Nicotine Cravings Olanzapine (Olanzapine 5 Mg Tablet) 5 mg PO Q4H PRN PRN Reason: Psychosis Last Admin: 07/06/24 17:53 Dose: 5 mg Olanzapine (Olanzapine 5 Mg Tablet) 5 mg PO BID [facility] Last Admin: 07/07/24 20:17 Dose: 5 mg Quetiapine Fumarate (Quetiapine Fumarate 50 Mg Tablet) 150 mg PO BEDTIME [facility] Last Admin: 07/07/24 20:18 Dose: Not Given Simethicone (Simethicone 80 Mg Tab.Chew) 80 mg PO QIDWMHS [facility] Last Admin: 07/07/24 20:21 Dose: Not Given Allergies Allergies Allergy/AdvReac Type Severity Reaction Status Date / Time adhesive tape Allergy Intermediate Hives Verified 07/02/24 15:19 trazodone Allergy Mild Hallucinati Verified 07/02/24 15:19 ons nabumetone AdvReac Intermediate blood in Verified 07/02/24 15:19 stool Assessment & Plan Assessment & Plan (1) Major depression with psychotic features: Status: Acute Code(s): F32.3 - Major depressive disorder, single episode, severe with psychotic features (2) PTSD (post-traumatic stress disorder): Status: Acute Code(s): F43.10 - Post-traumatic stress disorder, unspecified Plan PTSD, Recurrent Major Depression with Psychotic Features. Plan: Admit, 15 min checks, CV Continue Klonopin, Gabapentin, Seroquel Haldol 5 mg tid Depakote ER 500 mg HS Diagnostics as needed Collateral contact Encourage full milieu Discharge planning 07/05- MRI Pending When results are in, continue med titrations/additions 07/08: Discharge 07/10 Reason for continued inpatient stay Substantial Risk for: rapid decompensation Time Spent With Patient Time: Total time managing care of this patient today ____ minutes.
[2024-07-08] MEDS: Haloperidol Lactate Oral Conc 10 MG/5 ML ORAL.CONC 5 MG PO (09:16)
[2024-07-08] MEDS: OLANZapine 5 MG TABLET PO ×2 (09:16→20:12)
[2024-07-08] MEDS: clonazePAM 1 MG TABLET PO ×2 (09:16→20:12)
[2024-07-08] MEDS: Divalproex Sodium ER 500 MG TAB.ER.24H PO ×2 (09:16→20:12)
[2024-07-08] MEDS: HaloperidoL 5 MG TABLET PO ×3 (13:31→20:12)
[2024-07-08 20:00] VITALS: BP 120/68; PULSE 98; RESP 16; TEMP 36.4; O2SAT 98
[2024-07-09 08:00] VITALS: BP 123/74; PULSE 65; TEMP 36.8; O2SAT 99
[2024-07-09] MEDS: clonazePAM 1 MG TABLET PO ×2 (09:07→21:51)
[2024-07-09] MEDS: Divalproex Sodium ER 500 MG TAB.ER.24H PO ×2 (09:07→21:51)
[2024-07-09] MEDS: OLANZapine 5 MG TABLET PO ×2 (09:07→21:52)
[2024-07-09] MEDS: HaloperidoL 5 MG TABLET PO ×4 (09:07→21:52)
--- NOTE | 2024-07-09 13:38 | HO.PSYCHPN ---
Subjective Subjective Date of Service: 07/09/24 Reason For Visit: crisis Subjective Notes: Conditional Voluntary Interim History: Pt reports feeling sad d/t having visual hallucinations of his brother. Pt stated, I feel like the meds are helping. The voices are quieter. I'm just sad that I have to see my brother and can't talk to him . denies SI/HI. He reports sleeping well last night. Per notes, pt is planned for dc on 07/10/24. Medication Compliance: Yes Side effects from medications: No Mental Status Exam Mental Status Exam Patient Appearance: Appropriate Patient Orientation: Person, Place, Time and Situation Level of Consciousness: Awake and Alert Patient Behavior: Appropriate, Cooperative and Good Eye Contact Mood Description: Sad Affect Description: Blunted Ability to Follow Directions: Good Speech Pattern: Clear Hallucinations: Auditory and Visual Thought Process: Intact Thought Content: positive for Intact Diagnostics Vital Signs (24Hr): Vital Signs - 24 hr 07/08/24 20:00 07/09/24 08:00 Temperature 97.6 F 98.2 F Pulse Rate 98 65 Respiratory Rate 16 Blood Pressure 120/68 123/74 Pulse Oximetry 98 99 Oxygen Delivery Method Room Air Room Air BMI result Body Mass Index 23.0 Labs 07/02/24 16:10 07/02/24 21:49 Imaging Radiology Impressions: ITS Impressions Head CT 07/04/24 12:44 IMPRESSION: No acute or structural brain abnormality by CT. Electronically signed by: Evan Valverde MD 07/04/2024 01:06 PM EST RP Brain MRI 07/05/24 15:05 IMPRESSION: 1. No intracranial hemorrhage, acute infarction, mass effect, or edema. There are no significant sequela of trauma by MRI. 2. A few scattered tiny white matter foci, nonspecific but most likely sequela of minimal microangiopathy. Electronically signed by: Manny Upton MD 07/05/2024 03:33 PM EST RP Medications Medications Current Medications Acetaminophen (Acetaminophen 325 Mg Tablet) 650 mg PO Q6H PRN PRN Reason: Headache/Pain, Scale 1-10 Last Admin: 07/06/24 17:41 Dose: 650 mg Al Hydroxide/Mg Hydroxide (Magnesium Hydrox/Alum Hydrox 30 Ml Oral.Susp) 30 ml PO Q6H PRN PRN Reason: Heartburn/Nausea Clonazepam (Clonazepam 1 Mg Tablet) 1 mg PO BID [facility] Last Admin: 07/09/24 09:07 Dose: 1 mg Divalproex Sodium (Divalproex Sodium Er 500 Mg Tab.Er.24h) 500 mg PO BID [facility] Last Admin: 07/09/24 09:07 Dose: 500 mg Gabapentin (Gabapentin 400 Mg Capsule) 800 mg PO TID PRN PRN Reason: pain/discomfort Last Admin: 07/07/24 20:17 Dose: 800 mg Haloperidol (Haloperidol 5 Mg Tablet) 5 mg PO QID [facility] Last Admin: 07/09/24 13:01 Dose: 5 mg Hydroxyzine HCl (Hydroxyzine Hcl 25 Mg Tablet) 25 mg PO Q6H PRN PRN Reason: mild anxiety Last Admin: 07/07/24 20:27 Dose: 25 mg Magnesium Hydroxide (Milk Of Magnesia 30 Ml Oral.Susp) 30 ml PO DAILY PRN PRN Reason: Constipation Nicotine Polacrilex (Nicotine Polacrilex 2 Mg Gum) 4 mg BUCCAL Q2H PRN PRN Reason: Nicotine Cravings Olanzapine (Olanzapine 5 Mg Tablet) 5 mg PO Q4H PRN PRN Reason: Psychosis Last Admin: 07/06/24 17:53 Dose: 5 mg Olanzapine (Olanzapine 5 Mg Tablet) 5 mg PO BID [facility] Last Admin: 07/09/24 09:07 Dose: 5 mg Quetiapine Fumarate (Quetiapine Fumarate 50 Mg Tablet) 150 mg PO BEDTIME [facility] Last Admin: 07/08/24 20:27 Dose: Not Given Simethicone (Simethicone 80 Mg Tab.Chew) 80 mg PO QIDWMHS [facility] Last Admin: 07/09/24 11:49 Dose: Not Given Allergies Allergies Allergy/AdvReac Type Severity Reaction Status Date / Time adhesive tape Allergy Intermediate Hives Verified 07/02/24 15:19 trazodone Allergy Mild Hallucinati Verified 07/02/24 15:19 ons nabumetone AdvReac Intermediate blood in Verified 07/02/24 15:19 stool Assessment & Plan Assessment & Plan (1) Major depression with psychotic features: Status: Acute Code(s): F32.3 - Major depressive disorder, single episode, severe with psychotic features (2) PTSD (post-traumatic stress disorder): Status: Acute Code(s): F43.10 - Post-traumatic stress disorder, unspecified Plan PTSD, Recurrent Major Depression with Psychotic Features. Plan: Admit, 15 min checks, CV Continue Klonopin, Gabapentin, Seroquel Haldol 5 mg tid Depakote ER 500 mg HS Diagnostics as needed Collateral contact Encourage full milieu Discharge planning 07/05- MRI Pending When results are in, continue med titrations/additions 07/08: Discharge 07/10 07/09: Pt reports feeling sad d/t having visual hallucinations of his brother. Pt stated, I feel like the meds are helping. The voices are quieter. I'm just sad that I have to see my brother and can't talk to him . denies SI/HI. He reports sleeping well last night. Per notes, pt is planned for dc on 07/10/24. Patient educated on: diagnosis and medication risk/benefits Reason for continued inpatient stay Substantial Risk for: med/psych decompensation Time Spent With Patient Time: Total time managing care of this patient today _20___ minutes.
[2024-07-09 20:00] VITALS: BP 143/76; PULSE 70; TEMP 36.7; O2SAT 98
[2024-07-09] MEDS: QUEtiapine Fumarate 50 MG TABLET 150 MG PO (21:51)
[2024-07-10 08:00] VITALS: BP 139/89; PULSE 82; TEMP 36.8; O2SAT 98
[2024-07-10] MEDS: OLANZapine 5 MG TABLET PO (08:17)
[2024-07-10] MEDS: HaloperidoL 5 MG TABLET PO (08:17)
[2024-07-10] MEDS: Divalproex Sodium ER 500 MG TAB.ER.24H PO (08:17)
[2024-07-10] MEDS: clonazePAM 1 MG TABLET PO (08:17)
--- NOTE | 2024-07-18 15:43 | PM.PSYDC ---
DS: Providers Provider Date of Service: 07/10/24 Date of admission: 07/02/24 19:57 Date of discharge: 07/10/24 Primary care physician: Unknown Physician Admitting clinician: Marion Borrego Attending physician on admission: Martínez Kam Attending physician on discharge: Martínez Kam Discharging clinician: Marion Borrego DS: Diagnosis Discharge Diagnosis (1) Major depression with psychotic features: Status: Acute (2) PTSD (post-traumatic stress disorder): Status: Acute DS: Medications Discharge Medications Home Medications: Previous Rx's ?Medication ?Instructions ?Recorded clonazepam 1 mg tablet 1 mg PO BID #14 tabs 07/10/24 divalproex 500 mg tablet,extended 500 mg PO BID #60 tabs 07/10/24 release 24 hr gabapentin 400 mg capsule 800 mg (2 x 400 mg) PO TID PRN 07/10/24 pain/discomfort #9 caps haloperidol 5 mg tablet 5 mg PO QID #120 tabs 07/10/24 hydroxyzine HCl 25 mg tablet 25 mg PO Q6H PRN mild anxiety #30 07/10/24 tabs olanzapine 5 mg tablet 5 mg PO BID #60 tabs 07/10/24 Mental Status Exam Mental Status Exam Patient Appearance: Appropriate Patient Orientation: Person, Place, Time and Situation Level of Consciousness: Awake and Alert Patient Behavior: Appropriate, Cooperative and Good Eye Contact Mood Description: Sad Affect Description: Blunted Ability to Follow Directions: Good Speech Pattern: Clear Hallucinations: None Thought Process: Intact Thought Content: positive for Intact Judgement: Good Data Imaging Diagnostic Imaging Impressions Head CT 07/04/24 12:44 IMPRESSION: No acute or structural brain abnormality by CT. Electronically signed by: Evan Valverde MD 07/04/2024 01:06 PM EST RP Brain MRI 07/05/24 15:05 IMPRESSION: 1. No intracranial hemorrhage, acute infarction, mass effect, or edema. There are no significant sequela of trauma by MRI. 2. A few scattered tiny white matter foci, nonspecific but most likely sequela of minimal microangiopathy. Electronically signed by: Manny Upton MD 07/05/2024 03:33 PM EST RP DS: Summary Hospital Course Hospital Course: Admission to adult psychiatry for exacebation of PTSD, major depression with psychosis. Medications were evaluated and titrated. Pt was offered full milieu participation during his admission. Pt was able to stabilize, manage sx and accept aftercare referrals. Status at Discharge Functional status at discharge: independent ambulation Overall status at discharge: patient is progressing back to baseline Time Spent with Patient Time attestation: Total time managing care of this patient today ____ minutes. Time spent: Less than 30 minutes Discharge Plan Discharge Anticipated Discharge Date/Time: 07/10/24 12:00 Patient Disposition: Home, Self-Care Discharge Diagnosis: PTSD Recurrent Major Depression with Psychotic Features Referrals: [facility] Adult Comprehensive Assessment with Vinnie Cain [Other] - 07/12/24 11:00 am (This is an in-person appointment. If you plan to have a psychiatry appointment you will need to make this appointment first. Social work is recommending therapy, assistant men's lacrosse coach and case management along with psychiatry.) [facility] Psychiatry with Rafael Cleveland [Other] - 08/12/24 4:00 pm (This appointment will be via Telehealth - phone. Rafael is out of the [place] office but the appointment will be Telehealth. ) Louis Luis MD [Physician] - 07/11/24 10:30 am (In office appointment ) Discharge Medications: New haloperidol 5 mg Tablet 5 mg PO QID Qty: 120 0RF gabapentin 400 mg Capsule 800 mg PO TID PRN (Reason: pain/discomfort) Qty: 9 0RF olanzapine 5 mg Tablet 5 mg PO BID Qty: 60 0RF clonazepam 1 mg Tablet 1 mg PO BID Qty: 14 4RF divalproex 500 mg Tablet Extended Release 24 Hr 500 mg PO BID Qty: 60 0RF hydroxyzine HCl 25 mg Tablet 25 mg PO Q6H PRN (Reason: mild anxiety) Qty: 30 0RF Discontinued clonazepam 1 mg tablet 1 mg PO BID gabapentin 800 mg 800 mg PO TID PRN (Reason: Pain) quetiapine 150 mg 150 mg PO BEDTIME Discharge Orders: Discharge Order (Routine); Ordered 07/10/24 Ordered By: Marion Borrego Diet: Advance to usual diet Activity on Discharge: As tolerated Stand Alone Forms: Patient Portal Discharge page, Community Support Print Language: Japanese Care Plan Goals: Mood and Behavioral Stabilization Health Concerns: Mood and Behavioral Stabilization Plan of Treatment: Take medications as directed Attend scheduled appointments Call/Return if needed Assessment: Pt is in agreement with discharge plan. He is aware he may call or return as needed. Discharge Date/Time: 07/10/24 11:30
== END 2024-07-10 11:30 | disposition home or self-care (01) | DRG 751 ==
LOC: HO.ED 19:58 → HO.PM5 20:18
PROVIDERS: Physician Assistant; Admitting Provider Registered Nurse; Emergency Provider Emergency Medicine; Visit Provider Psychiatry & Neurology Psychiatry
DX: F32.3 Major depressive disorder, single episode, severe with psychotic features (principal); F17.210 Nicotine dependence, cigarettes, uncomplicated; F43.10 Post-traumatic stress disorder, unspecified; Z71.6 Tobacco abuse counseling; Z79.899 Other long term (current) drug therapy
CPT/HCPCS: 36415; 70450; 70551; 80053; 80143; 80179; 80307; 81003; 85025; 93005; 99285; S9485

== ENCOUNTER → 2024-07-02 19:37 | Outpatient (BNV) | payer OTHER, SELFPAY | PROVIDERS: Admitting Provider Registered Nurse; Emergency Provider Emergency Medicine; Visit Provider Internal Medicine Cardiovascular Disease | DX: I49.1 Atrial premature depolarization (principal) | CPT/HCPCS: 93010 ==

== ENCOUNTER 2024-07-02 19:57 | Outpatient (BNV) | payer OTHER, SELFPAY | END 2024-07-05 15:05 | PROVIDERS: Admitting Provider Registered Nurse; Emergency Provider Emergency Medicine; Visit Provider Radiology Diagnostic Radiology | DX: F29 Unspecified psychosis not due to a substance or known physiological condition (principal); Z87.820 Personal history of traumatic brain injury | CPT/HCPCS: 70551 ==

== ENCOUNTER 2024-07-02 19:57 | Outpatient (BNV) | payer OTHER, SELFPAY | END 2024-07-04 12:44 | PROVIDERS: Admitting Provider Registered Nurse; Emergency Provider Emergency Medicine; Visit Provider Radiology Diagnostic Radiology | DX: F23 Brief psychotic disorder (principal) | CPT/HCPCS: 70450 ==

== ENCOUNTER → 2024-07-02 19:57 | Outpatient (BNV) | payer OTHER, SELFPAY | PROVIDERS: Admitting Provider Registered Nurse; Emergency Provider Emergency Medicine; Visit Provider Clinical Nurse Specialist Psychiatric/Mental Health, Adult | DX: F32.3 Major depressive disorder, single episode, severe with psychotic features (principal); F43.10 Post-traumatic stress disorder, unspecified | CPT/HCPCS: 90792 ==

== ENCOUNTER 2024-07-18 12:22 | Outpatient (AMB) | payer OTHER, SELFPAY ==
--- NOTE | 2024-07-18 12:38 | MHC.PC.OV ---
Vital Signs 07/18/24 12:40 Height 5 ft 9 in Weight 168 lb 8 oz BMI 24.9 BP 130/72 Blood Pressure Location Lt brachial Position Sitting Pulse 78 Pulse Source Pulse Oximeter Temp 97.3 F Temp Source Temporal Artery Scan Pulse Oximetry (%) 97 Oxygen Delivery Method Room Air Intake Visit Reasons: Schizophrenia Intake Note: Patient is here to follow up on Schizophrenia. Complaint of fidget, pain, and difficulty sleeping [facility] Required: No Kiln Remover: Present Accompanied by: Spouse Allergies adhesive tape Allergy (Intermediate, Verified 07/18/24 13:09) Hives trazodone Allergy (Mild, Verified 07/18/24 13:09) Hallucinations nabumetone Adverse Reaction (Intermediate, Verified 07/18/24 13:09) blood in stool Medication List - Last Reconciled 07/18/24 by Ashleigh Lang PA-C clonazepam 1 mg PO BID divalproex ER 500 mg PO BID gabapentin 800 mg (2 x 400 mg) PO TID PRN haloperidol 5 mg PO QID hydroxyzine HCl 25 mg PO Q6H PRN olanzapine 5 mg PO BID Tobacco use date assessed: 07/18/24 Dental Screening Dental Screen Date: 07/02/24 [facility] Medical History (Updated 07/18/24 @ 13:14 by Ashleigh Lang PA-C) Restlessness Schizophrenia PTSD (post-traumatic stress disorder) Screening examination for STI Syncopal episodes Major depression with psychotic features Generalized anxiety disorder Surgical History History of dental surgery History of hand surgery History of lung surgery Family History Mother Substance use disorder Father Substance use disorder Other Epilepsy Mental health disorder Social History Household Members: Unknown / Unable to assess Housing: Unknown / Unable to assess Do you presently have visiting nurse or other home services: No Unable to assess alcohol history related to: Refusing to respond Alcohol intake: current Alcohol intake frequency: holidays/special occasions only Patient Tobacco Use Status: Current everyday Tobacco user Tobacco use type: Cigarette Cigarette Packs Per Day: 0.10 Cigarettes Per Day: 1 Years Smoked: 30 e-Cigarette/Vaping Use: Never Used Second Hand Smoke Exposure: Yes Substance Use Type: Crack/Cocaine and Marijuana service: No Current occupational status: unemployed Sexual orientation: Straight/Heterosexual Cognitive needs: No Hearing needs: No Vision needs: No Questionnaire Thrive Questionnaire Date Thrive assessed: 07/10/24 KATHY-7 AMB Questionnaire KATHY-7 Date KATHY - 7 assessed: 07/02/24 Source: Developed by Drs. Pravin Graves, Mellissa Napoles, Ethan Clark and colleagues, with an educational shirlene from [employer]. Physical exam (Primary Care) Vital Signs: Last Vital Signs Temp 97.3 F 07/18/24 12:40 Pulse 78 07/18/24 12:40 BP 130/72 07/18/24 12:40 Pulse Ox 97 07/18/24 12:40 Oxygen Delivery Method Room Air 07/18/24 12:40 Care Plan Goal for BP management: 130/80 BMI result Body Mass Index 24.9 normal bmi Tobacco/Smoking Status: Tobacco use Status Tobacco use date assessed 07/18/24 07/18/24 12:51 Patient Tobacco Use Status Current everyday Tobacco 07/18/24 12:51 Tobacco use type Cigarette 07/18/24 12:51 e-Cigarette/Vaping Use Never Used 07/18/24 12:51 Thrive Assessment: Date of Thrive Assessment Date Thrive assessed 07/10/24 07/18/24 12:51 Coding Level of Care Code Est Pt Level 4 (56042) Complex EM visit Add On G2211 Diagnoses Schizophrenia F20.9 Restlessness R45.1 Assessment & Plan Assessment & Plan (1) Schizophrenia: Code(s): F20.9 - Schizophrenia, unspecified Category: Medical Plan: Condition is stable. Patient is still seeing his brother although the voices are less. He is currently taking his medications as prescribed. He has follow-up with Psychiatry tomorrow. Not in any acute psychosis at this time or chuy. Not requiring inpatient psych at this time. There is no SI or HI on exam. Condition is chronic and stable will continue to monitor. (2) Restlessness: Code(s): R45.1 - Restlessness and agitation Category: Medical Plan: Patient to follow-up with psychiatrist tomorrow and discuss the restlessness. Condition is stable continue to monitor. Plan Plan The management plan involves further evaluation of the current medication regimen responsible for the patient's restlessness and improving his sleep disturbances. Maintaining clonazepam for anxiety control is crucial, while reviewing haloperidol's contribution to restlessness might be necessary to optimize his therapeutic regimen. Gabapentin's effectiveness amid weather impacts requires reassessment. Consultation with his psychiatrist during the upcoming appointment will be lynch to making any necessary psychiatric medication modifications. The patient will provide the name of a previously effective medication to aid sleep for further consideration. The patient will follow up in three months to evaluate progression and medication adjustments. Patient Instructions: Patient Instructions - Consult with your psychiatrist during your scheduled appointment tomorrow to discuss the potential for medication adjustments. - Provide the name of the helpful sleep aid from your aunt to aid in evaluation of potential inclusion in the treatment plan. - Continue taking clonazepam as prescribed, noting any changes in symptom relief. - Follow up as scheduled in three months to assess the effectiveness of adjustments and symptom management. - Report any significant changes in symptoms or side effects promptly for further evaluation. Scribe Plan - Not visible on output: History of Present Illness The patient is a 43-year-old male presenting with for discharge follow-up from [facility] after being admitted for schizophrenia. Also reports symptoms of restlessness and concerns about medication side effects. The restlessness has worsened over time, impacting his daily functionality due to medication-induced discomfort from his psychotropic regimen. Despite improvements in auditory hallucinations with current medications post-hospital stabilization, the patient experiences significant restlessness. The clonazepam provides temporary relief, and gabapentin has been increased with little benefit, contributing to his restlessness and discomfort. He experiences sleep disturbances linked to medication effects, rejecting Seroquel due to its impact on his alertness and begrudging trazodone owing to past negative experiences. The patient seeks further adjustments to alleviate restlessness and optimize sleep. Social History - Family Status: The patient mentions familial support, including an aunt involved in his medication management. - Functional Status: Reports persistent restlessness impacting daily activities, including watching TV and resting. - Current Nutritional Intake: No specific diet or nutritional details provided. - Substance Use: Not explicitly discussed. Review of Systems - Musculoskeletal: Reports restlessness and discomfort that require constant repositioning. - Psychological: Reports improvement in auditory hallucinations but experiences residual restlessness linked to medication. Physical Exam Appearance: Alert. Oriented X3. No acute distress. Head: Normal external exam. Normocephalic. Atraumatic. Eyes: Pupils are equal, round, and reactive to light. Extraocular movements intact. Conjunctiva and sclera normal. Eyelids normal. Ears: External auditory canal normal. Tympanic membranes normal. Neck: Normal inspection. Neck supple. Full range of motion. Cardiovascular: Normal heart rate and rhythm. Heart sound normal. No murmurs noted. Pulses normal throughout. Respiratory: No respiratory distress. Painless inspiration. Breath sounds normal. Crackles noted. No wheezes/rales/rhonchi noted. Chest nontender. No accessory muscle usage noted or decreased air movement noted. Back: Full range of motion noted. Skin: Skin warm and dry. Normal skin color. Normal skin turgor. No rashes/lesions/lacerations noted. Extremities: Extremities exhibit normal range of motion. Extremities nontender. Neuro: Oriented X 3. No motor deficit. No sensory deficit. Reflexes normal. Psych: Good insight. Good judgment. Normal affect. No obvious auditory or visual hallucinations. No SI or HI at this time. Patient was informed and verbally consented to the use of an ambient scribe for clinic note documentation during this visit. Discussion Notes During the visit, we discussed the patient's current medication regimen's potential impact on his restlessness. I emphasized the importance of consulting with his psychiatrist to address the concerns related to psychotropic medications and their side effects, particularly insomnia and restlessness. I advised maintaining his clonazepam dosage for temporary anxiety relief while reconsidering the need for haloperidol based on its contribution to his restlessness. The patient agreed to follow up on providing the name of an effective sleep aid previously used, allowing us to consider its inclusion in his treatment plan. We reviewed the importance of continuing psychiatric follow-up, as the current regimen provided a significant reduction in auditory hallucinations. I encouraged forthcoming discussions with the psychiatrist to explore adaptation of medication doses or types. Patient Instructions - Consult with your psychiatrist during your scheduled appointment tomorrow to discuss the potential for medication adjustments. - Provide the name of the helpful sleep aid from your aunt to aid in evaluation of potential inclusion in the treatment plan. - Continue taking clonazepam as prescribed, noting any changes in symptom relief. - Follow up as scheduled in three months to assess the effectiveness of adjustments and symptom management. - Report any significant changes in symptoms or side effects promptly for further evaluation.
[2024-07-18 12:40] VITALS: BP 130/72; PULSE 78; TEMP 36.3; O2SAT 97; BMI 24.9
== END 2024-07-18 13:11 | disposition home or self-care (01) ==
PROVIDERS: Visit Provider Physician Assistant Medical
DX: F20.9 Schizophrenia, unspecified (principal); R45.1 Restlessness and agitation

== ENCOUNTER → 2024-07-18 12:22 | Outpatient (BNVA) | payer OTHER, SELFPAY | PROVIDERS: Visit Provider Physician Assistant Medical | DX: F20.9 Schizophrenia, unspecified (principal); R45.1 Restlessness and agitation | CPT/HCPCS: 99212 ==

== ENCOUNTER 2024-09-23 10:04 | Inpatient (IN) | payer OTHER, SELFPAY ==
--- NOTE | 2024-09-23 10:55 | ED_ITS ---
HPI - Psych General Chief Complaint: Psychiatric Symptoms Stated Complaint: medication refill Time Seen by Provider: 09/23/24 15:37 Source: patient and old records reviewed Mode of arrival: ambulatory Limitations: no limitations History of Present Illness ED Provider: SHARON ARGUELLO Narrative: 44 yo male with PMH of anxiety, PTSD, schizophrenia, CKD, who has not been on his psychiatric medications for 3.5 weeks. He tells me he started hearing voices and they are telling him very bad things happened. He recently lost his brother who . He notes he thought voices were coming out of his phone so he smashed it and then missed his appointments and medications. His symptoms of voices and panic worsened to the point he states he spent some time in police custody of making accusations someone was harming his niece and nephew. He is here today after a friend encouraged him to get help. He states he doesn't know what exactly he has but he wants help. He took edibles and 2 clonazepam [employer]. MD complaint: anxiety and other Onset (ago): week(s) (3) Duration: getting worse History of same: Yes Relieving factors: none Exacerbating factors: other Context: not taking psychiatric medications and significant life stressor Associated psychiatric symptoms: depression, auditory hallucinations, visual hallucinations and delusions Associated symptoms: denies other symptoms Treatments prior to arrival: none Related Data Previous Rx's ?Medication ?Instructions ?Recorded clonazepam 1 mg tablet 1 mg PO BID #60 tabs 09/06/24 gabapentin 400 mg capsule 800 mg (2 x 400 mg) PO TID PRN 09/06/24 pain/discomfort #180 caps Allergies Allergy/AdvReac Type Severity Reaction Status Date / Time adhesive tape Allergy Intermediate Hives Verified 09/23/24 11:01 trazodone Allergy Mild Hallucinati Verified 09/23/24 11:01 ons nabumetone AdvReac Intermediate blood in Verified 09/23/24 11:01 stool Review of Systems 2 Review of Systems: Constitutional : No Fever, No Chills ENT/Mouth : No Ear Pain, No Nasal Congestion, No sore throat Eyes: No Eye Pain, No Swelling, No Redness Cardiovascular : No Chest Pain, No SOB Respiratory : No Cough, No Sputum, No Dyspnea Gastrointestinal : No Nausea, No Vomiting, No Diarrhea, No Hematochezia, No Melena Genitourinary : No Dysuria, No Urinary Frequency, No Hematuria Musculoskeletal : No Myalgias Skin : No Skin Lesions, No rash Neuro : No Weakness, No Numbness, No Paresthesias, No Dizziness, No Headache Psych : positive Anxiety, positive Depression, pos AH, no SI/HI All other systems reviewed and are negative [facility] Past Medical History Attestation statement: The following information was validated with the patient. Source: old records reviewed Medical History Restlessness Schizophrenia PTSD (post-traumatic stress disorder) Screening examination for STI Syncopal episodes Major depression with psychotic features Generalized anxiety disorder Surgical History History of dental surgery History of hand surgery History of lung surgery Family History Family History Mother Substance use disorder Father Substance use disorder Other Epilepsy Mental health disorder Social History Social History Household Members: None Housing: Homeless Do you presently have visiting nurse or other home services: No Unable to assess alcohol history related to: Refusing to respond Alcohol intake: current Alcohol intake frequency: holidays/special occasions only Patient Tobacco Use Status: Current everyday Tobacco user Tobacco use type: Cigarette Cigarette Packs Per Day: 0.10 Cigarettes Per Day: 1 Years Smoked: 30 Smoked in Last 30 Days: Yes e-Cigarette/Vaping Use: Never Used Patient Interested in Nicotine Replacement: No Patient Given Instructions on How to Stop Smoking: No Second Hand Smoke Exposure: No Substance Use Type: Marijuana Currently Displaying Signs/Symptoms of Drug Intoxication Withdrawal: No Have you been hit, kicked, punched, or otherwise hurt by someone within the past year? If so, by whom?: No Do you feel safe in your current relationship?: Yes Is there a partner from a previous relationship who is making you feel unsafe now?: No Are you made to feel afraid or neglected: No Advance Directives: No Advance Directives Information Provided: No Do you have thoughts of harming others: None Do you have a plan to hurt others: No Plan Recently lost weight without trying: No Eating poorly because of decreased appetite: No Nutrition Risks: No Nutritional Risk Poor oral hygiene: Yes (no teeth) service: No Current occupational status: unemployed Sexual orientation: Straight/Heterosexual Cognitive needs: No Hearing needs: No Vision needs: No Physical Exam 2 Vital Signs: Vital Signs: Last Vital Signs Temp 97.1 F 09/25/24 07:35 Pulse 77 09/25/24 07:35 Resp 16 09/25/24 07:35 BP 119/73 09/25/24 07:35 Pulse Ox 97 09/25/24 07:35 O2 Del Method Room Air 09/25/24 07:35 BMI result Body Mass Index 24.5 Appearance: Alert. Oriented X3. No acute distress. anxious hyperverbal Eyes: Pupils equal, round and reactive to light. ENT: Pharynx normal. Neck: Normal inspection. Neck supple. CVS: Normal heart rate and rhythm. Pulses normal. Respiratory: No respiratory distress. Breath sounds normal. Abdomen: Soft and nontender. Skin: Skin warm and sweaty. Normal skin color. Normal skin turgor. Extremities: No lower extremity edema. No calf ttp Neuro: Oriented X 3. No motor deficit. No sensory deficit. CN2-12 intact Course Course Course Narrative: This is an RME: Additional HPI, ROS, PE not included below will be deferred to primary provider. RME assessment and note performed by: Gayathri Zaragoza PA-C This is a 27-rjer-ebo-male, with a hx of PTSD, major depression with psychosis, who presents to the ER with complaints of auditory hallucinations. He has been without his medications since his d/c from [facility] in June 2024. He states that he has had worsening auditory hallucinations. No SI/HI. Last took medications >3 weeks ago. He has had a difficult time following up with psychiatrist/therapist. Plan: Labs, UA, care team, further ER eval needed Reevaluation(s) Reevaluation #1: Time: 11:30 Date: 09/24/24 Provider: Shanti Shrestha DO Physician observation ended at 1130 Patient to be admitted as inpatient to psychiatry. Medications Administered Generic Name Dose Route Start Last Admin Trade Name Freq PRN Reason Stop Dose Admin Clonazepam 1 mg 09/24/24 21:00 09/24/24 20:44 Clonazepam 1 Mg Tablet PO 1 mg BEDTIME SELMA Administration Divalproex Sodium 500 mg 09/24/24 21:00 09/24/24 20:44 Divalproex Sodium Er 500 Mg Tab.Er.24h PO 500 mg BEDTIME SELMA Administration Haloperidol 5 mg 09/24/24 16:45 09/25/24 08:44 Haloperidol 5 Mg Tablet PO 5 mg TID SELMA Administration Quetiapine Fumarate 100 mg 09/24/24 21:00 09/24/24 20:44 Quetiapine Fumarate 100 Mg Tablet PO 100 mg BEDTIME SELMA Administration Discontinued Medications Generic Name Dose Route Start Last Admin Trade Name Neo PRN Reason Stop Dose Admin Haloperidol 5 mg 09/23/24 15:42 09/23/24 16:24 Haloperidol 5 Mg Tablet PO 09/23/24 15:43 5 mg ONCE ONE Administration Lorazepam 2 mg 09/23/24 15:42 09/23/24 16:24 Lorazepam 1 Mg Tablet PO 09/23/24 15:43 2 mg ONCE ONE Administration Medical Decision Making Medical Decision Making MDM Narrative: 44 yo male with PMH of anxiety, PTSD, schizophrenia, CKD now here with c/o not taking medications for 3.5 weeks along with feeling worsening AH and feeling like something bad is happening. I am going to medically clear him and start him on haldol and PO ativan - refer to CARE team while he does not have SI/HI he should stay and talk to CARE team Differential Diagnosis Differential Diagnoses: The differential diagnosis associated with the presentation includes schizophrenia, non compliance Admission/Observation Consideration of admission/observation: Escalation of care including admission/observation considered physician observation started at 350pm pending CARE team Consult Healthcare Provider Management of the patient was discussed with: Behavioral Health Provider Lab Data [facility] Lab Attestation statement: I reviewed the patient's lab results. 09/23/24 11:29 09/25/24 08:07 Labs: Lab Results 09/23/24 09/24/24 Range/Units 11:29 10:25 WBC 5.5 (4.8-10.8) X10*3/uL RBC 4.65 (4.60-5.80) X10*6/uL Hgb 14.2 (14.0-18.0) g/dl Hct 42.5 (42.0-52.0) % MCV 91.4 (80.0-98.0) fL MCH 30.5 (27.0-33.0) pg MCHC 33.4 (31.0-36.0) g/dl RDW 12.6 (11.0-16.0) % Plt Count 275 (160-400) X10*3/uL MPV 10.2 (9.4-12.4) fL Immature Gran % (Auto) 0.2 (0.0-0.4) % Neut % (Auto) 46.2 (45-73) % Lymph % (Auto) 39.5 (20-40) % Robeson % (Auto) 9.0 (2-11) % Eos % (Auto) 4.6 H (0-4) % Baso % (Auto) 0.5 (0-2) % Lymph # (Auto) 2.2 (1.2-4.9) X10*3/uL Robeson # (Auto) 0.5 (0.1-1.2) X10*3/uL Eos # (Auto) 0.3 (0.0-0.4) X10*3/uL Baso # (Auto) 0.0 (0.0-0.2) X10*3/uL Abs Immat Gran (auto) 0.01 (0.00-0.03) X10*3/uL Absolute Neuts (auto) 2.5 (2.0-8.3) x10*3/uL Absolute Nucleated RBC 0.000 (0.0-0.012) X10*3/uL Nucleated RBC % (auto) 0.0 (0.0-0.2) /100WBC Sodium 141 (135-145) mmol/L Potassium 4.3 (3.3-5.1) mmol/L Chloride 104 (96-108) mmol/L Carbon Dioxide 32 H (22-29) mmol/L Anion Gap 9 L (12-20) BUN 15 (9-16) mg/dL Creatinine 1.10 (0.5-1.4) mg/dL Estim Creat Clear Calc 87.5 Estimated GFR > 60 Random Glucose 72 (60-115) mg/dL Calcium 9.6 D (8.4-10.2) mg/dL Total Bilirubin 0.6 (0.0-1.0) mg/dL AST 25 (5-37) U/L ALT 34 (0-40) U/L Alkaline Phosphatase 86 (39-117) U/L Total Protein 7.0 (6.5-8.0) g/dL Albumin 4.3 (3.5-5.0) g/dL Urine Color Yellow Urine Appearance Clear Urine pH 6.5 (5.0-9.0) Ur Specific [place] 1.020 (1.005-1.025) Urine Protein Negative (Neg-Trace) mg/dL Urine Glucose (UA) 100 H (Negative) mg/dL Urine Ketones Trace (Negative) mg/dL Urine Blood Negative (Negative) Urine Nitrite Negative (Negative) Ur Leukocyte Esterase Negative (Negative) Salicylates < 5.0 L (15-30) mg/dL Urine Opiates Screen Not Detected (Not Detect) Ur Buprenorphine Scrn Not Detected (Not Detect) ng/mL Ur Oxycodone Screen Positive H (Not Detect) ng/mL Urine Methadone Screen Not Detected (Not Detect) ng/mL Urine Fentanyl Screen Not Detected (Not Detect) Acetaminophen < 3 (<30) mcg/mL Ur Barbiturates Screen Not Detected (Not Detect) Ur Phencyclidine Scrn Not Detected (Not Detect) Ur Amphetamines Screen Not Detected (Not Detect) U Benzodiazepines Scrn Not Detected (Not Detect) Urine Cocaine Screen POSITIVE H (Not Detect) U Marijuana (THC) Screen POSITIVE H (Not Detect) Ethyl Alcohol < 10 mg/dL External Record Review External record reviewed: Inpatient record and Outpatient record Social Determinants Patient?s care significantly limited by Social Determinants of Health including: Problems related to primary support group Discharge Plan Discharge Clinical Impression: Chronic schizophrenia Patient Disposition: Admitted As Inpatient Interventions: Admission Worksheet (ED) Last Done: 09/24/24 11:48 Discharge Date/Time: 09/24/24 11:51
[2024-09-23 10:56] VITALS: BP 140/75; PULSE 63; RESP 16; TEMP 36.3; O2SAT 97; BMI 24.5
[2024-09-23 11:52] LABS: MANUAL DIFF FLAG NO
[2024-09-23 11:57] LABS: Basophils Percent Auto 0.5 % (0-2); Eosinophils Absolute Auto 0.3 X10*3/uL (0.0-0.4); Eosinophils Percent Auto 4.6 % (0-4); Hematocrit 42.5 % (42.0-52.0); Hemoglobin 14.2 g/dl (14.0-18.0); Imm Gran Abs Auto 0.01 X10*3/uL (0.00-0.03); Imm Gran Pct Auto 0.2 % (0.0-0.4); Lymphocytes Absolute Auto 2.2 X10*3/uL (1.2-4.9); Lymphocytes Percent Auto 39.5 % (20-40); Mean Corpuscular HGB Conc 33.4 g/dl (31.0-36.0); Mean Corpuscular Hemoglobin 30.5 pg (27.0-33.0); Mean Corpuscular Volume 91.4 fL (80.0-98.0); Mean Platelet Volume 10.2 fL (9.4-12.4); Monocytes Absolute Auto 0.5 X10*3/uL (0.1-1.2); Neutrophils Absolute Auto 2.5 x10*3/uL (2.0-8.3); Neutrophils Percent Auto 46.2 % (45-73); Platelet Count 275 X10*3/uL (160-400); Red Blood Count 4.65 X10*6/uL (4.60-5.80); Red Cell Distribution Width 12.6 % (11.0-16.0); White Blood Count 5.5 X10*3/uL (4.8-10.8)
[2024-09-23 12:13] LABS: Acetaminophen LAB < 3 mcg/mL (<30); Salicylate < 5.0 mg/dL (15-30)
[2024-09-23 12:31] LABS: Alanine Aminotransferase 34 U/L (0-40); Albumin Level 4.3 g/dL (3.5-5.0); Alkaline Phosphatase 86 U/L (39-117); Anion Gap 9 (12-20); Aspartate Amino Transferase 25 U/L (5-37); Bilirubin Total 0.6 mg/dL (0.0-1.0); Blood Urea Nitrogen 15 mg/dL (9-16); Calcium 9.6 mg/dL (8.4-10.2); Carbon Dioxide 32 mmol/L (22-29); Chloride 104 mmol/L (96-108); Creatinine Clr Calc Pharmacy 87.5; Estimated Glomerular Filt Rate > 60; Ethanol < 10 mg/dL; Glucose Random 72 mg/dL (60-115); Potassium 4.3 mmol/L (3.3-5.1); Sodium 141 mmol/L (135-145)
[2024-09-23] MEDS: LORazepam 1 MG TABLET 2 MG PO (16:24)
[2024-09-23] MEDS: HaloperidoL 5 MG TABLET PO (16:24)
--- NOTE | 2024-09-23 16:26 | PC.NURSE ---
pt medicated per JUL, changed over by tech, denies SI/HI, reports increased AH - denies command hallucinations. reports improvement in AH on meds but has been off them for 3 weeks d/t being unable to get in w outpt providers. plan for CARE team eval.
[2024-09-23 17:35] VITALS: BP 133/86; PULSE 70; RESP 16; TEMP 37.2; O2SAT 94
--- NOTE | 2024-09-23 21:18 | PHA.MEDREC ---
Pharmacy Consult ? Medication Reconciliation Pharmacy has completed the medication reconciliation. claim history used to complete med rec based on patient reports to nursing and providers that he's not filled or taken his medications since jun 2024. gabapentin and clonazepam are still being filled and taken.
--- NOTE | 2024-09-24 | ECG_ITS ---
Test Reason : check prolonged qt Blood Pressure : */* mmHG Vent. Rate : 66 BPM Atrial Rate : 66 BPM P-R Int : 144 ms QRS Dur : 86 ms QT Int : 418 ms P-R-T Axes : 82 63 70 degrees QTcB Int : 438 ms Sinus rhythm with Premature atrial complexes Otherwise normal ECG When compared with ECG of 02-Jul-2024 19:37, No significant change was found Referred By: Shanti Shrestha Electronically Signed By: KAYLEEN HOFF
--- NOTE | 2024-09-24 07:34 | PC.NURSE ---
Assumed care of patient at 0645, patient appears to be in no apparent distress this am, sleeping respirations even and unlabored. Continue plan of care for IPLOC
[2024-09-24 07:59] VITALS: BP 106/60; PULSE 60; RESP 14; TEMP 36.9; O2SAT 98
[2024-09-24 10:34] LABS: Appearance Urine Clear; Color Urine Yellow; Glucose Urine UA 100 mg/dL (Negative); Leukocyte Esterase Urine Negative (Negative); Nitrite Urine Negative (Negative); PH 6.5 (5.0-9.0); Urine Blood Negative (Negative); Urine Ketones Trace mg/dL (Negative); Urine Protein Negative (Neg-Trace)
[2024-09-24 10:43] LABS: Amphetamine Screen Urine Not Detected (Not Detect); Barbiturates, Urine Not Detected (Not Detect); Benzodiazepines Screen Urine Not Detected (Not Detect); Buprenorphine Scr Not Detected (Not Detect); Cannabinoid Screen Urine POSITIVE (Not Detect); Cocaine Screen Urine POSITIVE (Not Detect); Fentanyl, urine Not Detected (Not Detect); Methadone Screen, Urine Not Detected (Not Detect); Opiate Screen Urine Not Detected (Not Detect); Oxycodone Screen Urine Positive (Not Detect); Phencyclidine Screen Urine Not Detected (Not Detect)
[2024-09-24 11:45] VITALS: BP 135/76; PULSE 80; RESP 16; TEMP 36.9; O2SAT 98; BMI 23.5
--- NOTE | 2024-09-24 13:23 | PC.NURSE ---
Caden was admitted to at 1140 from [facility] on 12a? for treatment of psychosis and substance use disorder.? Pt reports brother , father had a heart attack and mother had a stroke. Crisis report says he smashed his phone and therefore missed follow up appointments, ran out of refills and so stopped meds 3.5 weeks ago. Patient states he hears voices telling him loved ones are in trouble and he tries to protect people and gets into trouble doing so.? On arrival to the unit Caden was alert and cooperative. During admission assessment he became paranoid about signing paperwork, refused to sign and indicated that he wanted to go to a different hospital. He agreed to take a break from admission assessment and resume later.? Mood is depressed. Affect is labile. He confirms auditory hallucinations and is overtly paranoid. He confirms ideation to harm others but agrees to approach staff with any intent.? Appetite is good. He ate 75% of lunch. Pt reports poor sleep. He is undomiciled. Focus is poor.? Tox screen is positive for cocaine, thc, and oxycodone. Pt reports the oxy is prescribed but it does not show up on external med rec. Pt is missing the majority of his 4 fingers on his left hand. He reports he accidentally cut them off with a skill saw years ago but that they are painful every day. He otherwise denies physical complaint.? Safety Checks are q 15 minutes.
--- NOTE | 2024-09-24 14:55 | P.HPPS_ITS ---
HPI Date of Service: 09/24/24 Chief Complaint: crisis Sources of Information: patient interviewed, chart reviewed and crisis/core team assessment reviewed HPI Subjective Notes: Salgado Warning and Conditional Voluntary Narrative: Patient is a 44-year-old male with history of schizophrenia, PTSD, and cocaine use disorder who self presented to [facility] ER due to increased paranoia and hallucinations secondary to being off of his medications for the last 3 weeks. Per crisis report, patient reports he recently returned to [place] a couple weeks ago after being in [place] with his family. Patient reported his brother and his father had a heart attack. Patient reported using THC edibles and clonazepam prior to arriving to ER. He reports having auditory and visual hallucinations for the past 2-3 weeks and has been paranoid towards his friends and family that they want him locked up. He reports poor sleep and appetite. Patient reports he has been struggling with his discharge referrals due to being out of state. denies SI/HI. Patient reports when he is medication compliant he does not experience hallucination and is able to maintain a job. Patient was discharged from on 07/18/2024. Denies history of a [facility], [facility] or outpatient services. Utox positive for marijuana, benzodiazepines and cocaine. During admission assessment, patient presents alert and oriented x3. Calm and cooperative. Guarded. Irritable. Patient feeling anxious and depressed; patient stated, I have been off my meds for 3 weeks. That's why I'm here. I'm having voices of things. And I'm seeing many people. I keep seeing friends and family and I don't know what is real . Patient reports difficulty sleeping. He would like his medications, obtain referrals to outpatient psychiatric providers and information of local shelters. Past Psychiatric History: IP: Several OP: None currently Trials: Several denies hx of SA/SIB. Medical Evaluation Reviewed: Yes [facility] Medical History Restlessness Schizophrenia PTSD (post-traumatic stress disorder) Screening examination for STI Syncopal episodes Major depression with psychotic features Generalized anxiety disorder Surgical History History of dental surgery History of hand surgery History of lung surgery Family History: schizophrenia Social History: homeless, single. no kids. unemployed. Substance History: utox positive for marijuana, cocaine and benzodiazepines. Trauma History: yes Diagnostics Vital Signs (24Hr): Vital Signs - 24 hr 09/23/24 17:35 09/24/24 07:59 09/24/24 11:45 Temperature 99.0 F 98.5 F 98.5 F Pulse Rate 70 60 80 Respiratory Rate 16 14 16 Blood Pressure 133/86 106/60 135/76 Pulse Oximetry 94 98 98 Oxygen Delivery Method Room Air Room Air Room Air BMI result Body Mass Index 23.5 Labs 09/23/24 11:29 09/23/24 11:29 Labs: Laboratory Results - last 48 hr 09/23/24 09/24/24 11:29 10:25 WBC 5.5 RBC 4.65 Hgb 14.2 Hct 42.5 MCV 91.4 MCH 30.5 MCHC 33.4 RDW 12.6 Plt Count 275 MPV 10.2 Immature Gran % (Auto) 0.2 Neut % (Auto) 46.2 Lymph % (Auto) 39.5 Drew % (Auto) 9.0 Eos % (Auto) 4.6 H Baso % (Auto) 0.5 Lymph # (Auto) 2.2 Drew # (Auto) 0.5 Eos # (Auto) 0.3 Baso # (Auto) 0.0 Abs Immat Gran (auto) 0.01 Absolute Neuts (auto) 2.5 Absolute Nucleated RBC 0.000 Nucleated RBC % (auto) 0.0 Sodium 141 Potassium 4.3 Chloride 104 Carbon Dioxide 32 H Anion Gap 9 L BUN 15 Creatinine 1.10 Estim Creat Clear Calc 87.5 Estimated GFR > 60 Random Glucose 72 Calcium 9.6 D Total Bilirubin 0.6 AST 25 ALT 34 Alkaline Phosphatase 86 Total Protein 7.0 Albumin 4.3 Urine Color Yellow Urine Appearance Clear Urine pH 6.5 Ur Specific [place] 1.020 Urine Protein Negative Urine Glucose (UA) 100 H Urine Ketones Trace Urine Blood Negative Urine Nitrite Negative Ur Leukocyte Esterase Negative Salicylates < 5.0 L Urine Opiates Screen Not Detected Ur Buprenorphine Scrn Not Detected Ur Oxycodone Screen Positive H Urine Methadone Screen Not Detected Urine Fentanyl Screen Not Detected Acetaminophen < 3 Ur Barbiturates Screen Not Detected Ur Phencyclidine Scrn Not Detected Ur Amphetamines Screen Not Detected U Benzodiazepines Scrn Not Detected Urine Cocaine Screen POSITIVE H U Marijuana (THC) Screen POSITIVE H Ethyl Alcohol < 10 Meds/Allergies Allergies Allergies Allergy/AdvReac Type Severity Reaction Status Date / Time adhesive tape Allergy Intermediate Hives Verified 09/23/24 11:01 trazodone Allergy Mild Hallucinati Verified 09/23/24 11:01 ons nabumetone AdvReac Intermediate blood in Verified 09/23/24 11:01 stool Mental Status Exam Mental Status Exam Narrative: Pt is alert and oriented; behavior is cooperative and calm; dressed in casual attire with unkempt hair; mood is described as anxious and depressed ; eye contact appropriate; Speech is normal rate, volume and not pressured; thought process is organized and goal directed; Thought content is on tx; denies SI/HI. Patient reports auditory and visualizations of friends and family. Assessment & Plan Assessment & Plan (1) Schizophrenia: Status: Acute Code(s): F20.9 - Schizophrenia, unspecified (2) PTSD (post-traumatic stress disorder): Status: Acute Code(s): F43.10 - Post-traumatic stress disorder, unspecified (3) Cocaine use disorder: Status: Acute Code(s): F14.10 - Cocaine abuse, uncomplicated Plan Patient is a 44-year-old male with history of schizophrenia, PTSD, and cocaine use disorder who self presented to [facility] ER due to increased paranoia and hallucinations secondary to being off of his medications for the last 3 weeks. Plan: CV 15 minute safety checks Continue home medications Referral to outpatient psychiatric providers Encourage groups Discharge planning Patient educated on: diagnosis and medication risk/benefits Reason for continued inpatient stay Substantial Risk for: med/psych decompensation Statement Statement: I have reviewed the history and physical and performed a pertinent examination on my patient. No changes have occurred unless specified. If the History and Physical was not performed prior to admission, the Hospitalist's service will be consulted for completing the admission physical. Time Spent With Patient Time: Total time managing care of this patient today _60___ minutes.
[2024-09-24] MEDS: HaloperidoL 5 MG TABLET PO ×2 (17:08→20:44)
[2024-09-24 20:00] VITALS: BP 136/82; PULSE 67; RESP 16; TEMP 36.3; O2SAT 97
[2024-09-24] MEDS: clonazePAM 1 MG TABLET PO (20:44)
[2024-09-24] MEDS: Divalproex Sodium ER 500 MG TAB.ER.24H PO (20:44)
[2024-09-24] MEDS: QUEtiapine Fumarate 100 MG TABLET PO (20:44)
[2024-09-25 07:35] VITALS: BP 119/73; PULSE 77; RESP 16; TEMP 36.2; O2SAT 97
[2024-09-25 08:38] LABS: Alanine Aminotransferase 19 U/L (0-40); Alkaline Phosphatase 76 U/L (39-117); Anion Gap 10 (12-20); Aspartate Amino Transferase 26 U/L (5-37); Bilirubin Total 0.7 mg/dL (0.0-1.0); Blood Urea Nitrogen 20 mg/dL (9-16); Calcium 8.8 mg/dL (8.4-10.2); Carbon Dioxide 26 mmol/L (22-29); Chloride 108 mmol/L (96-108); Cholesterol 182 mg/dL (<200); Creatinine Clr Calc Pharmacy 108.2; Estimated Glomerular Filt Rate > 60; Glucose Random 87 mg/dL (60-115); HDL Cholesterol 38 mg/dL (>40); LDL Cholesterol Calculated 128 mg/dL (<100); Potassium 4.2 mmol/L (3.3-5.1); Sodium 140 mmol/L (135-145); Total Protein 6.5 g/dL (6.5-8.0); Triglycerides 81 mg/dL (<150)
[2024-09-25] MEDS: HaloperidoL 5 MG TABLET PO ×3 (08:44→20:29)
--- NOTE | 2024-09-25 09:51 | HO.PSYCHPN ---
Subjective Subjective Date of Service: 09/25/24 Reason For Visit: crisis Subjective Notes: Conditional Voluntary Interim History: Patient reports feeling better today; he reports always having auditory hallucinations but states they are less loud since restarting medications. Pt stated, I feel like I have a better handle on reality ; denies SI/HI/VH/AH. Per social work, pt has phone intake with Adelina Garcia and would like to discharge tomorrow if he is able to obtain a bed. Medication Compliance: Yes Side effects from medications: No Attending Groups: No Mental Status Exam Mental Status Exam Narrative: Pt is alert and oriented; behavior is cooperative and calm; dressed in casual attire; mood is described as better ; eye contact appropriate; Speech is normal rate, volume and not pressured; thought process is organized and goal directed; Thought content is on tx/discharge; denies SI/HI/VH. Patient reports auditory hallucinations are less loud. Diagnostics Vital Signs (24Hr): Vital Signs - 24 hr 09/24/24 11:45 09/24/24 20:00 09/25/24 07:35 Temperature 98.5 F 97.3 F 97.1 F Pulse Rate 80 67 77 Respiratory Rate 16 16 16 Blood Pressure 135/76 136/82 119/73 Pulse Oximetry 98 97 97 Oxygen Delivery Method Room Air Room Air Room Air BMI result Body Mass Index 23.5 Labs 09/23/24 11:29 09/25/24 08:07 Labs: Laboratory Results - last 48 hr 09/23/24 09/24/24 09/25/24 11:29 10:25 08:07 WBC 5.5 RBC 4.65 Hgb 14.2 Hct 42.5 MCV 91.4 MCH 30.5 MCHC 33.4 RDW 12.6 Plt Count 275 MPV 10.2 Immature Gran % (Auto) 0.2 Neut % (Auto) 46.2 Lymph % (Auto) 39.5 [place] % (Auto) 9.0 Eos % (Auto) 4.6 H Baso % (Auto) 0.5 Lymph # (Auto) 2.2 [place] # (Auto) 0.5 Eos # (Auto) 0.3 Baso # (Auto) 0.0 Abs Immat Gran (auto) 0.01 Absolute Neuts (auto) 2.5 Absolute Nucleated RBC 0.000 Nucleated RBC % (auto) 0.0 Sodium 141 140 Potassium 4.3 4.2 Chloride 104 108 Carbon Dioxide 32 H 26 Anion Gap 9 L 10 L BUN 15 20 H Creatinine 1.10 0.89 Estim Creat Clear Calc 87.5 108.2 Estimated GFR > 60 > 60 Random Glucose 72 87 Calcium 9.6 D 8.8 D Total Bilirubin 0.6 0.7 AST 25 26 ALT 34 19 Alkaline Phosphatase 86 76 Total Protein 7.0 6.5 Albumin 4.3 4.0 Triglycerides 81 Cholesterol 182 LDL Cholesterol, Calc 128 H HDL Cholesterol 38 L Urine Color Yellow Urine Appearance Clear Urine pH 6.5 Ur Specific [place] 1.020 Urine Protein Negative Urine Glucose (UA) 100 H Urine Ketones Trace Urine Blood Negative Urine Nitrite Negative Ur Leukocyte Esterase Negative Salicylates < 5.0 L Urine Opiates Screen Not Detected Ur Buprenorphine Scrn Not Detected Ur Oxycodone Screen Positive H Urine Methadone Screen Not Detected Urine Fentanyl Screen Not Detected Acetaminophen < 3 Ur Barbiturates Screen Not Detected Ur Phencyclidine Scrn Not Detected Ur Amphetamines Screen Not Detected U Benzodiazepines Scrn Not Detected Urine Cocaine Screen POSITIVE H U Marijuana (THC) Screen POSITIVE H Ethyl Alcohol < 10 Medications Medications Current Medications Acetaminophen (Acetaminophen 325 Mg Tablet) 650 mg PO Q6H PRN PRN Reason: Headache/Pain, Scale 1-10 Al Hydroxide/Mg Hydroxide (Magnesium Hydrox/Alum Hydrox 30 Ml Oral.Susp) 30 ml PO Q6H PRN PRN Reason: Heartburn/Nausea Clonazepam (Clonazepam 1 Mg Tablet) 1 mg PO BEDTIME [facility] Last Admin: 09/24/24 20:44 Dose: 1 mg Divalproex Sodium (Divalproex Sodium Er 500 Mg Tab.Er.24h) 500 mg PO BEDTIME [facility] Last Admin: 09/24/24 20:44 Dose: 500 mg Gabapentin (Gabapentin 400 Mg Capsule) 800 mg PO TID PRN PRN Reason: pain/discomfort Haloperidol (Haloperidol 5 Mg Tablet) 5 mg PO TID [facility] Last Admin: 09/25/24 08:44 Dose: 5 mg Hydroxyzine HCl (Hydroxyzine Hcl 25 Mg Tablet) 25 mg PO Q6H PRN PRN Reason: mild anxiety Magnesium Hydroxide (Milk Of Magnesia 30 Ml Oral.Susp) 30 ml PO DAILY PRN PRN Reason: Constipation Nicotine Polacrilex (Nicotine Polacrilex 2 Mg Gum) 4 mg BUCCAL Q2H PRN PRN Reason: Nicotine Cravings Olanzapine (Olanzapine 5 Mg Tablet) 5 mg PO Q4H PRN PRN Reason: agitation Quetiapine Fumarate (Quetiapine Fumarate 100 Mg Tablet) 100 mg PO BEDTIME [facility] Last Admin: 09/24/24 20:44 Dose: 100 mg Allergies Allergies Allergy/AdvReac Type Severity Reaction Status Date / Time adhesive tape Allergy Intermediate Hives Verified 09/23/24 11:01 trazodone Allergy Mild Hallucinati Verified 09/23/24 11:01 ons nabumetone AdvReac Intermediate blood in Verified 09/23/24 11:01 stool Assessment & Plan Assessment & Plan (1) Schizophrenia: Status: Acute Code(s): F20.9 - Schizophrenia, unspecified (2) PTSD (post-traumatic stress disorder): Status: Acute Code(s): F43.10 - Post-traumatic stress disorder, unspecified (3) Cocaine use disorder: Status: Acute Code(s): F14.10 - Cocaine abuse, uncomplicated Plan Patient is a 44-year-old male with history of schizophrenia, PTSD, and cocaine use disorder who self presented to [facility] ER due to increased paranoia and hallucinations secondary to being off of his medications for the last 3 weeks. Plan: CV 15 minute safety checks Continue home medications Referral to outpatient psychiatric providers Encourage groups Discharge planning 09/25: Patient reports feeling better today; he reports always having auditory hallucinations but states they are less loud since restarting medications. Pt stated, I feel like I have a better handle on reality ; denies SI/HI/VH/AH. Per social work, pt has phone intake with Adelina Garcia and would like to discharge tomorrow if he is able to obtain a bed. Patient educated on: diagnosis, medication risk/benefits and therapeutic strategies Reason for continued inpatient stay Substantial Risk for: med/psych decompensation Time Spent With Patient Time: Total time managing care of this patient today _20___ minutes.
[2024-09-25 20:00] VITALS: BP 138/80; PULSE 70; RESP 16; TEMP 36.4; O2SAT 96
[2024-09-25] MEDS: clonazePAM 1 MG TABLET PO (20:28)
[2024-09-25] MEDS: Divalproex Sodium ER 500 MG TAB.ER.24H PO (20:29)
[2024-09-25] MEDS: QUEtiapine Fumarate 100 MG TABLET PO (20:29)
[2024-09-26 07:00] VITALS: BMI 23.6
[2024-09-26 07:32] VITALS: BP 110/66; PULSE 68; RESP 18; TEMP 37; O2SAT 97
[2024-09-26] MEDS: HaloperidoL 5 MG TABLET PO (08:09)
--- NOTE | 2024-09-26 09:16 | PM.PSYDC ---
DS: Providers Provider Date of Service: 09/26/24 Date of admission: 09/24/24 10:59 Date of discharge: 09/26/24 Primary care physician: Louis Luis MD Admitting clinician: Quin Beckett Attending physician on admission: Martínez Kam Attending physician on discharge: Martínez Kam Discharging clinician: Quin Beckett DS: Diagnosis Discharge Diagnosis (1) Schizophrenia: Status: Acute (2) PTSD (post-traumatic stress disorder): Status: Acute (3) Cocaine use disorder: Status: Acute DS: Medications Discharge Medications Home Medications: Previous Rx's ?Medication ?Instructions ?Recorded clonazepam 1 mg tablet 1 mg PO BID #60 tabs 09/06/24 gabapentin 400 mg capsule 800 mg (2 x 400 mg) PO TID PRN 09/06/24 pain/discomfort #180 caps Mental Status Exam Mental Status Exam Narrative: Pt is alert and oriented; behavior is cooperative and calm; dressed in casual attire; mood is described as good ; eye contact appropriate; Speech is normal rate, volume and not pressured; thought process is organized and goal directed; Thought content is on discharge; denies SI/HI/VH. Patient reports auditory hallucinations are less. Data Data Completed and Pending Completed studies during hospitalization [Text1]: 09/23/24 09/24/24 09/25/24 11:29 10:25 08:07 WBC 5.5 RBC 4.65 Hgb 14.2 Hct 42.5 MCV 91.4 MCH 30.5 MCHC 33.4 RDW 12.6 Plt Count 275 MPV 10.2 Immature Gran % (Auto) 0.2 Neut % (Auto) 46.2 Lymph % (Auto) 39.5 [place] % (Auto) 9.0 Eos % (Auto) 4.6 H Baso % (Auto) 0.5 Lymph # (Auto) 2.2 [place] # (Auto) 0.5 Eos # (Auto) 0.3 Baso # (Auto) 0.0 Abs Immat Gran (auto) 0.01 Absolute Neuts (auto) 2.5 Absolute Nucleated RBC 0.000 Nucleated RBC % (auto) 0.0 Sodium 141 140 Potassium 4.3 4.2 Chloride 104 108 Carbon Dioxide 32 H 26 Anion Gap 9 L 10 L BUN 15 20 H Creatinine 1.10 0.89 Estim Creat Clear Calc 87.5 108.2 Estimated GFR > 60 > 60 Random Glucose 72 87 Calcium 9.6 D 8.8 D Total Bilirubin 0.6 0.7 AST 25 26 ALT 34 19 Alkaline Phosphatase 86 76 Total Protein 7.0 6.5 Albumin 4.3 4.0 Triglycerides 81 Cholesterol 182 LDL Cholesterol, Calc 128 H HDL Cholesterol 38 L Urine Color Yellow Urine Appearance Clear Urine pH 6.5 Ur Specific [place] 1.020 Urine Protein Negative Urine Glucose (UA) 100 H Urine Ketones Trace Urine Blood Negative Urine Nitrite Negative Ur Leukocyte Esterase Negative Salicylates < 5.0 L Urine Opiates Screen Not Detected Ur Buprenorphine Scrn Not Detected Ur Oxycodone Screen Positive H Urine Methadone Screen Not Detected Urine Fentanyl Screen Not Detected Acetaminophen < 3 Ur Barbiturates Screen Not Detected Ur Phencyclidine Scrn Not Detected Ur Amphetamines Screen Not Detected U Benzodiazepines Scrn Not Detected Urine Cocaine Screen POSITIVE H U Marijuana (THC) Screen POSITIVE H Ethyl Alcohol < 10 DS: Summary Hospital Course Hospital Course: Patient is a 44-year-old male with history of schizophrenia, PTSD, and cocaine use disorder who self presented to [facility] ER due to increased paranoia and hallucinations secondary to being off of his medications for the last 3 weeks. Per crisis report, patient reports he recently returned to [place] a couple weeks ago after being in [place] with his family. Patient reported his brother and his father had a heart attack. Patient reported using THC edibles and clonazepam prior to arriving to ER. He reports having auditory and visual hallucinations for the past 2-3 weeks and has been paranoid towards his friends and family that they want him locked up. He reports poor sleep and appetite. Patient reports he has been struggling with his discharge referrals due to being out of state. denies SI/HI. Patient reports when he is medication compliant he does not experience hallucination and is able to maintain a job. Patient was discharged from on 07/18/2024. Denies history of a [facility], [facility] or outpatient services. Utox positive for marijuana, benzodiazepines and cocaine. During admission assessment, patient presents alert and oriented x3. Calm and cooperative. Guarded. Irritable. Patient feeling anxious and depressed; patient stated, I have been off my meds for 3 weeks. That's why I'm here. I'm having voices of things. And I'm seeing many people. I keep seeing friends and family and I don't know what is real . Patient reports difficulty sleeping. He would like his medications, obtain referrals to outpatient psychiatric providers and information of local shelters. Plan: CV 15 minute safety checks Continue home medications Referral to outpatient psychiatric providers Encourage groups Discharge planning Patient reports feeling better today; he reports always having auditory hallucinations but states they are less loud since restarting medications. Pt stated, I feel like I have a better handle on reality ; denies SI/HI/VH/AH. Per social work, pt has phone intake with [facility] and would like to discharge tomorrow if he is able to obtain a bed. Per social work, pt has a bed at [facility]. Pt reports feeling good and looking forward to leave ; pt stated, I've been trying to get into a residential for awhile. I need to go to get this bed because I don't want to lose it . Pt reports he plans on following up with outpatient providers. denies SI/HI/VH. Continues to report auditory hallucinations that are less. Status at Discharge Cognitive/behavioral status at discharge: Patient has insight and demonstrates good judgment in terms of wanting to pursue treatment. Patient has a safety plan that includes presenting to the closest ER or calling 911 if feeling unsafe. Functional status at discharge: independent ambulation Overall status at discharge: patient is back to baseline Time Spent with Patient Time attestation: Total time managing care of this patient today _20___ minutes. Time spent: Less than 30 minutes Discharge Plan Discharge Anticipated Discharge Date/Time: 09/26/24 14:00 Patient Disposition: Residential Discharge Diagnosis: Schizophrenia, PTSD, Cocaine use d/o Referrals: [facility] [Other] - 09/30/24 11:00 am ([facility] has referred you to [facility] for outpatient providers. You have been assigned an intake appointment with Carolina Pryor for 09/30/24. ) Louis Luis MD [Primary Care Provider] - 1 Week (09-26-24 Your primary care provider will be contacting you directly with the date and time of your follow up appt. They also wish to remind you that you have a 3 month follow up visit scheduled for 10-17-24 @ 1pm.) Discharge Medications: New clonazepam 1 mg Tablet 1 mg PO BEDTIME 30 Days Qty: 30 0RF haloperidol 5 mg Tablet 5 mg PO TID 30 Days Qty: 90 0RF quetiapine 100 mg Tablet 100 mg PO BEDTIME 30 Days Qty: 30 0RF Discontinued clonazepam 1 mg tablet 1 mg PO BID Qty: 60 0RF gabapentin 400 mg capsule 800 mg PO TID PRN (Reason: pain/discomfort) Qty: 180 0RF Discharge Orders: Discharge Order (Routine); Ordered 09/26/24 Ordered By: Quin Beckett Diet: Regular diet Activity on Discharge: As tolerated Stand Alone Forms: Patient Portal Discharge page, Community Support Print Language: Slovak Care Plan Goals: Maintain mood and safe behaviors Take medications as prescribed Continue to pursue sobriety Practice coping skills Continue with outpatient providers and reach out to them as needed Health Concerns: Mood stability and behaviors Sobriety Plan of Treatment: Follow up with your PCP, psychiatric provider and other outpatient providers regarding above concerns Take medications as prescribed Assessment: Patient has insight and demonstrates good judgment in terms of wanting to pursue treatment. Patient has a safety plan that includes presenting to the closest ER or calling 911 if feeling unsafe. Discharge Date/Time: 09/26/24 11:50
== END 2024-09-26 11:50 | disposition home or self-care (01) | DRG 750 ==
LOC: HO.ED 09-24 11:06 → HO.PADLT16 09-24 11:28
PROVIDERS: Physician Assistant Medical; Admitting Provider Registered Nurse; Emergency Provider Emergency Medicine; PCP Internal Medicine; Responsible Provider Registered Nurse; Visit Provider Psychiatry & Neurology Psychiatry
DX: F20.9 Schizophrenia, unspecified (principal); Z91.148 Patient's other noncompliance with medication regimen for other reason; F14.10 Cocaine abuse, uncomplicated; F17.210 Nicotine dependence, cigarettes, uncomplicated; Z71.6 Tobacco abuse counseling; Z63.4 Disappearance and death of family member; F43.10 Post-traumatic stress disorder, unspecified; Z79.899 Other long term (current) drug therapy
CPT/HCPCS: 36415; 80053; 80061; 80143; 80179; 80307; 81003; 85025; 93005; 99285; S9485

== ENCOUNTER → 2024-09-24 10:29 | Outpatient (BNV) | payer OTHER, SELFPAY | PROVIDERS: Admitting Provider Registered Nurse; Emergency Provider Emergency Medicine; PCP Internal Medicine; Responsible Provider Registered Nurse; Visit Provider Internal Medicine | DX: I49.1 Atrial premature depolarization (principal) | CPT/HCPCS: 93010 ==

== ENCOUNTER → 2024-09-24 10:59 | Outpatient (BNV) | payer OTHER, SELFPAY | PROVIDERS: Admitting Provider Registered Nurse; Emergency Provider Emergency Medicine; PCP Internal Medicine; Responsible Provider Registered Nurse; Visit Provider Registered Nurse | DX: F20.0 Paranoid schizophrenia (principal); F14.10 Cocaine abuse, uncomplicated; F43.11 Post-traumatic stress disorder, acute | CPT/HCPCS: 90792; 99232; 99238 ==

== ENCOUNTER 2025-01-08 08:43 | Outpatient (AMB) | payer OTHER, SELFPAY ==
--- NOTE | 2025-01-08 08:54 | MHC.PC.OV ---
Vital Signs 01/08/25 08:55 Height 5 ft 10 in Weight 172 lb 8 oz BMI 24.7 BP 128/70 Blood Pressure Location Lt brachial Position Sitting Respiration 16 Pulse 80 Pulse Source Pulse Oximeter Temp 97.0 F Temp Source Temporal Artery Scan Pulse Oximetry (%) 95 Oxygen Delivery Method Room Air Intake Visit Reasons: med f/u - see comments Accompanied by: fiance Allergies adhesive tape Allergy (Intermediate, Verified 01/09/25 19:48) Hives trazodone Allergy (Mild, Verified 01/09/25 19:48) Hallucinations nabumetone Adverse Reaction (Intermediate, Verified 01/09/25 19:48) blood in stool Medication List - Last Reconciled 01/09/25 by Louis Luis MD clonazepam 1 mg PO BEDTIME 30 days haloperidol 5 mg PO TID 30 days quetiapine 100 mg PO BEDTIME 30 days Tobacco use date assessed: 01/08/25 Dental Screening Dental Screen Date: 01/08/25 Did you have a dental visit in the last 12 months?: No Did you have a dental problem in the last 6 months where you did not have access to dental care?: No Was dental information given to patient?: Patient declined [facility] Medical History Restlessness Schizophrenia PTSD (post-traumatic stress disorder) Screening examination for STI Syncopal episodes Major depression with psychotic features Generalized anxiety disorder Surgical History History of dental surgery History of hand surgery History of lung surgery Family History Mother Substance use disorder Father Substance use disorder Other Epilepsy Mental health disorder Social History Household Members: None Housing: Homeless Do you presently have visiting nurse or other home services: No Unable to assess alcohol history related to: Refusing to respond Alcohol intake: current Alcohol intake frequency: holidays/special occasions only Patient Tobacco Use Status: Current everyday Tobacco user Tobacco use type: Cigarette Cigarette Packs Per Day: 0.10 Cigarettes Per Day: 2 Years Smoked: 30 e-Cigarette/Vaping Use: Never Used Second Hand Smoke Exposure: No Substance Use Type: Marijuana service: No Current occupational status: unemployed Sexual orientation: Straight/Heterosexual Cognitive needs: No Hearing needs: No Vision needs: No Questionnaire PHQ-9 Over the last 2 weeks, how often have you been bothered by any of the following problems? 1. Little interest or pleasure in doing things: nearly every day 2. Feeling down, depressed, or hopeless: nearly every day 3. Trouble falling or staying asleep, or sleeping too much: nearly every day (can not sleep) 4. Feeling tired or having little energy: more than half the days 5. Poor appetite or overeating: more than half the days (over eating) 6. Feeling bad about yourself - or that you are a failure or have let yourself or your family down: nearly every day 7. Trouble concentrating on things, such as reading the newspaper or watching television: nearly every day 8. Moving or speaking so slowly that other people could have noticed. Or the opposite - being so fidgety or restless that you have been moving around a lot more than usual: more than half the days 9. Thoughts that you would be better off or of hurting yourself in some way: several days Total score: 22 Depression Screening Interpretation: Positive Depression Screening Done: Yes 46980 - PHQ-9 Billing: Yes Source: Developed by Drs. Pravin Graves, Mellissa Napoles, Ethan Clark and colleagues, with an educational shirlene from [employer]. Thrive Questionnaire Date Thrive assessed: 09/25/24 I am a: Patient What is your living situation today?: I have a steady place to live Within the past 12 months, did the food you bought not last and you didn't have the money to get more?: Never true Within the past 12 months, did you worry whether your food would run out before you got money to buy more?: Never true Do you have trouble paying for medicines?: No Do you have trouble getting transportation to medical appointments?: No Do you have trouble paying your heating and electricity bill?: No Do you have trouble taking care of your child, family member or friend?: No Do you have trouble with day-to-day activities such as bathing, preparing meals, shopping, managing finances, etc.?: No Are you currently unemployed and looking for a job?: No Are you interested in more education?: No Please select the resources that you would like help with: None Currently or been in a relationship where the following occur: No concerns reported THRIVE Score: 0 AUDIT C Alcohol Use Questionnaire (AUDIT-C) 1. How often do you have a drink containing alcohol?: 2-3 times a week 2. How many drinks containing alcohol do you have on a typical day when you are drinking?: 1 or 2 3. How often do you have six or more drinks on one occasion?: Never Total Score: 3 KATHY-7 AMB Questionnaire KATHY-7 Date KATHY - 7 assessed: 07/02/24 Feeling nervous, anxious, or on edge: 3 = Nearly every day Not being able to stop or control worryin = Nearly every day Worrying too much about different things: 3 = Nearly every day Trouble relaxin = Nearly every day Being so restless that it is hard to sit still: 2 = More than half the days Becoming easily annoyed or irritable: 3 = Nearly every day Feeling afraid as if something awful might happen: 2 = More than half the days Total KATHY-7 score (0-4 normal; 5-9 mild; 10-14 moderate; 15-21 severe): 19 Source: Developed by Drs. Pravin Graves, Mellissa Napoles, Ethan Clark and colleagues, with an educational shirlene from [employer]. Physical exam (Primary Care) Vital Signs: Last Vital Signs Temp 97.0 F 01/08/25 08:55 Pulse 80 01/08/25 08:55 Resp 16 01/08/25 08:55 BP 128/70 01/08/25 08:55 Pulse Ox 95 01/08/25 08:55 Oxygen Delivery Method Room Air 01/08/25 08:55 BMI result Body Mass Index 24.7 Tobacco/Smoking Status: Tobacco use Status Tobacco use date assessed 01/08/25 01/08/25 09:01 Patient Tobacco Use Status Current everyday Tobacco 01/08/25 09:01 Tobacco use type Cigarette 01/08/25 09:01 e-Cigarette/Vaping Use Never Used 01/08/25 09:01 PHQ-9: PHQ-9 Score PHQ-9: Total score 22 01/08/25 09:01 Depression Screening Interpretation: Positive Thrive Assessment: Date of Thrive Assessment Date Thrive assessed 09/25/24 01/08/25 09:01 Currently or been in a relationship where the following occur: No concerns reported Coding Level of Care Code Est Pt Level 4 (22807) Complex EM visit Add On G2211 Diagnoses Major depression with psychotic features F32.3 Additional Codes PHQ-9 - 20717 - PHQ-9 Billing: Yes ([id number]) Assessment & Plan Assessment & Plan (1) Major depression with psychotic features: Code(s): F32.3 - Major depressive disorder, single episode, severe with psychotic features Category: Medical Plan: History of Present Illness - The patient is a 44-year-old male presenting with insomnia and auditory hallucinations. - Insomnia: The patient reports difficulty sleeping despite taking Seroquel, requiring three tablets to fall asleep. - The patient has been hospitalized four times since the last visit due to medication issues, including being prescribed Haldol, which worsened his condition. 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 - Medication non-adherence: The patient is currently only taking Seroquel, as other medications were discontinued without his knowledge. - The patient has been unable to secure consistent psychiatric care due to communication issues with mental health providers. 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 Denies other neurological symptoms. - Psychiatric: Reports insomnia and difficulty with medication adherence. 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 Results Plan 1. Insomnia - Plan to discuss medication adjustments with the psychiatrist to address insomnia. - Consideration for stronger medication as current dosage is insufficient. 2. Auditory Hallucinations - Referral to outpatient psychiatric care for management of auditory hallucinations. - Ensure communication with mental health providers to address ongoing symptoms. 3. Medication Non-Adherence - Address communication issues with mental health providers to ensure proper medication management. - Discuss with psychiatrist the need for consistent medication regimen. Discussion Notes I discussed with the patient the need to coordinate with his psychiatrist for medication adjustments to manage his insomnia and auditory hallucinations. I emphasized the importance of consistent follow-up with mental health providers to ensure proper management of his conditions. Patient Instructions - Follow up with your psychiatrist for medication adjustments. - Ensure communication with mental health providers for consistent care. Plan A call was placed to the psychiatrist who took care of him when he was in the hospital. I asked him about the outpatient care for this patient. I was informed that patient had an appointment at [facility]. I called the social care worker to discuss this case further. She informed me that the patient did not go for to appointments that were scheduled for him at the outpatient facility. Patient reported to me that he is unable to take messages or listen to messages due to his baseline auditory hallucinations. He now lives with a girlfriend and has given us the permission to inform the girlfriend of his appointments. The girlfriend herself has mental health issues and seems to be unreliable. The social health care worker assured me that she will be contacting the state for further assistance in this regard.
[2025-01-08 08:55] VITALS: BP 128/70; PULSE 80; RESP 16; TEMP 36.1; O2SAT 95; BMI 24.7
== END 2025-01-08 09:19 | disposition home or self-care (01) ==
LOC: HO.HMCH 08:43
PROVIDERS: PCP Internal Medicine; Visit Provider Internal Medicine
DX: F32.3 Major depressive disorder, single episode, severe with psychotic features (principal)

== ENCOUNTER → 2025-01-08 08:43 | Outpatient (BNVA) | payer OTHER, SELFPAY | PROVIDERS: PCP Internal Medicine; Visit Provider Internal Medicine | DX: F32.3 Major depressive disorder, single episode, severe with psychotic features (principal); G47.00 Insomnia, unspecified; Z91.148 Patient's other noncompliance with medication regimen for other reason | CPT/HCPCS: 96127; 99212 ==

== ENCOUNTER 2025-04-03 15:21 | Outpatient (AMB) | payer OTHER, SELFPAY ==
--- NOTE | 2025-04-03 15:39 | A.OFFPC_ITS ---
Vital Signs 04/03/25 15:40 Height 5 ft 10 in Weight 176 lb 6 oz BMI 25.3 BP 100/80 Blood Pressure Location Lt brachial Position Sitting Pulse 73 Pulse Source Pulse Oximeter Temp 97.3 F Temp Source Temporal Artery Scan Pulse Oximetry (%) 97 Oxygen Delivery Method Room Air Intake Visit Reasons: 3mth f/u Intake Note: Patient is here to follow up on PTSD, Schizophrenia, WILLIAM. Requesting for STI testing. Complaint of headaches with red spots, floaters and blurry version. Call Box Wirer Required: No Steam Finisher: Not Required per policy Accompanied by: Self / Same As Patient Allergies adhesive tape Allergy (Intermediate, Verified 04/03/25 15:40) Hives trazodone Allergy (Mild, Verified 04/03/25 15:40) Hallucinations nabumetone Adverse Reaction (Intermediate, Verified 04/03/25 15:40) blood in stool Tobacco use date assessed: 04/03/25 Dental Screening Dental Screen Date: 01/08/25 [facility] Medical History Restlessness Schizophrenia PTSD (post-traumatic stress disorder) Screening examination for STI Syncopal episodes Major depression with psychotic features Generalized anxiety disorder Surgical History History of dental surgery History of hand surgery History of lung surgery Family History Mother Substance use disorder Father Substance use disorder Other Epilepsy Mental health disorder Social History Household Members: None Housing: Homeless Do you presently have visiting nurse or other home services: No Alcohol intake: current Alcohol intake frequency: holidays/special occasions only Patient Tobacco Use Status: Current everyday Tobacco user Tobacco use type: Cigarette (1 or 2 single a week) Cigarette Packs Per Day: 0.10 Cigarettes Per Day: 2 Years Smoked: 30 e-Cigarette/Vaping Use: Never Used Second Hand Smoke Exposure: Yes Substance Use Type: Marijuana service: No Current occupational status: unemployed Sexual orientation: Straight/Heterosexual Cognitive needs: No Hearing needs: No Vision needs: No Questionnaire PHQ-9 Over the last 2 weeks, how often have you been bothered by any of the following problems? 1. Little interest or pleasure in doing things: nearly every day 2. Feeling down, depressed, or hopeless: nearly every day 3. Trouble falling or staying asleep, or sleeping too much: nearly every day 4. Feeling tired or having little energy: nearly every day 5. Poor appetite or overeating: nearly every day 6. Feeling bad about yourself - or that you are a failure or have let yourself or your family down: nearly every day 7. Trouble concentrating on things, such as reading the newspaper or watching television: nearly every day 8. Moving or speaking so slowly that other people could have noticed. Or the opposite - being so fidgety or restless that you have been moving around a lot more than usual: nearly every day 9. Thoughts that you would be better off or of hurting yourself in some way: more than half the days Total score: 26 Depression Screening Interpretation: Positive Depression Screening Done: Yes Source: Developed by Drs. Pravin Graves, Mellissa Napoles, Ethan Clark and colleagues, with an educational shirlene from [employer]. Thrive Questionnaire Date Thrive assessed: 09/25/24 I am a: Patient What is your living situation today?: I choose not to answer this question Within the past 12 months, did the food you bought not last and you didn't have the money to get more?: Never true Within the past 12 months, did you worry whether your food would run out before you got money to buy more?: Never true Do you have trouble paying for medicines?: Yes Do you have trouble getting transportation to medical appointments?: Yes Do you have trouble paying your heating and electricity bill?: No Do you have trouble taking care of your child, family member or friend?: No Do you have trouble with day-to-day activities such as bathing, preparing meals, shopping, managing finances, etc.?: Yes Are you currently unemployed and looking for a job?: Yes Are you interested in more education?: No Please select the resources that you would like help with: Housing/Fdc, Food and Transportation Currently or been in a relationship where the following occur: No concerns reported THRIVE Score: 1 AUDIT C Alcohol Use Questionnaire (AUDIT-C) 1. How often do you have a drink containing alcohol?: Never Total Score: 0 KATHY-7 AMB Questionnaire KATHY-7 Date KATHY - 7 assessed: 04/03/25 Feeling nervous, anxious, or on edge: 3 = Nearly every day Not being able to stop or control worryin = Nearly every day Worrying too much about different things: 3 = Nearly every day Trouble relaxin = Nearly every day Being so restless that it is hard to sit still: 3 = Nearly every day Becoming easily annoyed or irritable: 3 = Nearly every day Feeling afraid as if something awful might happen: 3 = Nearly every day Total KATHY-7 score (0-4 normal; 5-9 mild; 10-14 moderate; 15-21 severe): 21 Source: Developed by Drs. Pravin Graves, Mellissa Napoles, Ethan Clark and colleagues, with an educational shirlene from [employer]. Physical exam (Primary Care) Vital Signs: Last Vital Signs Temp 97.3 F 04/03/25 15:40 Pulse 73 04/03/25 15:40 BP 100/80 04/03/25 15:40 Pulse Ox 97 04/03/25 15:40 Oxygen Delivery Method Room Air 04/03/25 15:40 BMI result Body Mass Index 25.3 Tobacco/Smoking Status: Tobacco use Status Tobacco use date assessed 04/03/25 04/03/25 15:41 Patient Tobacco Use Status Current everyday Tobacco 04/03/25 15:41 Tobacco use type Cigarette (1 or 2 single a 04/03/25 15:54 week) e-Cigarette/Vaping Use Never Used 04/03/25 15:41 PHQ-9: PHQ-9 Score PHQ-9: Total score 26 04/03/25 15:41 Depression Screening Interpretation: Positive Thrive Assessment: Date of Thrive Assessment Date Thrive assessed 09/25/24 04/03/25 15:41 Currently or been in a relationship where the following occur: No concerns reported Coding Level of Care Code Est Pt Level 4 (61316) Complex EM visit Add On G2211 Diagnoses Major depression with psychotic features F32.3 Assessment & Plan Assessment & Plan (1) Major depression with psychotic features: Code(s): F32.3 - Major depressive disorder, single episode, severe with psychotic features Category: Medical Plan: History of Present Illness - The patient is a 44-year-old male presenting for management of his mental health condition and medication renewal. - He has been off his prescribed psychiatric medications for over 30 days, with some medications stopped for two months, due to difficulty finding a psychiatrist who accepts his insurance. - Since stopping his medications, he reports experiencing insomnia, severe headaches, dizziness, a sensation of overheating, and visual disturbances described as red blockages. - He also reports significant irritability and episodes of uncontrollable anger, which have led to arguments and strained his living situation. - The patient has a history of psychiatric hospitalizations, stating this has been his primary method for getting medication refills. - These hospitalizations have previously resulted in the loss of housing. Social History - Housing: The patient has unstable housing and is at risk of losing his current residence with a friend due to his behavior. - Barriers to Care: Patient reports difficulty finding a mental health provider who accepts his insurance. - History of psychiatric hospitalizations has negatively impacted his housing. - Social Support: He relies on one individual for support, but their relationship is currently strained. Review of Systems - Psychiatric: Reports insomnia and significant irritability with outbursts of anger. - Neurological: Reports severe headaches and dizziness. - Constitutional: Reports a sensation of overheating. - Eyes: Reports seeing red blockages. Physical Exam General: Cooperative and healthy appearing Nutritional Appearance: Well nourished Orientation/consciousness: Patient oriented x3 Limitations: No limitations Head: Normal to inspection General: Appearance normal, both eyes and all related structures Neck: Normal visual inspection Chest: Normal palpation of entire chest wall Respiratory: N ormal respiratory effort Neurology: Patient oriented x3, reports dizziness and headaches. Results Plan - Send prescriptions for the patient's previous psychiatric medications for a 30 -day supply to the pharmacy. - Arrange for a mental health provider to call the patient tomorrow to schedule an appointment. - Advised the patient that his current symptoms are related to his mental health condition and discontinuing medications, and they should improve upon restarting treatment. - Patient was offered an influenza vaccine, which he declined. - Advised the patient to consider presenting to the hospital if his symptoms worsen or his housing situation becomes untenable. Discussion Notes I discussed with the patient that his symptoms of insomnia, irritability, and sensations of heat are manifestations of his underlying mental health condition, exacerbated by recent medication non-adherence. We arranged for the mental health office to contact him tomorrow to schedule an appointment, and he verbalized his commitment to attend. We also acknowledged the challenges related to his unstable housing and phone access, and he understands that re- hospitalization may be necessary if his situation does not improve. I explained the plan to provide a 30-day bridge supply of his medications and to facilitate a referral to a mental health specialist for ongoing care. Patient Instructions - I have sent a 30-day supply of your medications to the pharmacy; please restart them as soon as possible. - Expect a call tomorrow from a mental health office to set up an appointment. - It is very important that you attend this mental health appointment for your ongoing care. - Your symptoms should begin to improve after you restart your medication. - If your symptoms get worse, or if you lose your current housing, you should go to the hospital. Medications: Refilled haloperidol 5 mg PO TID 90 tabs 0RF 30 days quetiapine 100 mg PO BEDTIME 30 tabs 0RF 30 days clonazepam 1 mg PO BEDTIME 30 tabs 0RF 30 days
[2025-04-03 15:40] VITALS: BP 100/80; PULSE 73; TEMP 36.3; O2SAT 97; BMI 25.3
== END 2025-04-03 16:19 | disposition home or self-care (01) ==
LOC: HO.HMCH 15:22
PROVIDERS: PCP Internal Medicine; Visit Provider Internal Medicine
DX: F32.3 Major depressive disorder, single episode, severe with psychotic features (principal)

== ENCOUNTER → 2025-04-03 15:21 | Outpatient (BNVA) | payer OTHER, SELFPAY | PROVIDERS: PCP Internal Medicine; Visit Provider Internal Medicine | DX: F32.3 Major depressive disorder, single episode, severe with psychotic features (principal) | CPT/HCPCS: 99212 ==

== ENCOUNTER 2025-04-11 10:53 | Outpatient (AMB) | payer OTHER, SELFPAY ==
--- NOTE | 2025-04-11 19:10 | MHC.OFFVISPS ---
Intake Intake Visit Reasons: consultation Intake Note: PHQ-9 21 KATHY-7 23 Coordinator Cardiopulmonary Services Required: No Allergies adhesive tape Allergy (Intermediate, Verified 04/03/25 15:40) Hives trazodone Allergy (Mild, Verified 04/03/25 15:40) Hallucinations haloperidol (From Haldol) Adverse Reaction (Intermediate, Verified 05/22/25 13:42) tremor, feels more irritable nabumetone Adverse Reaction (Intermediate, Verified 04/03/25 15:40) blood in stool Medication List - Last Reconciled 04/11/25 by Marion Borrego APRN clonazepam (Klonopin) 1 mg PO BID divalproex ER (Depakote ER) 500 mg PO BID olanzapine 10 mg PO BID HPI- Psychiatric Chief Complaint: consultation HPI Narrative: Pt known to tw. He has been unable to have consistent medication follow up and will be working with PCP for ongoing mgt. Reports sx of mood dysregulation, chuy, psychosis, and lability. Discussed regime of Klonopin, Valproate, Olanzapine which he agrees to trial. Will offer weekly follow up until he believes we are on track and he is feeling better. Caden reports losing periods of time, lapses in memory, isolative to avoid reactions (?triggers), feeling anger and at times wanting to harm others without intent, VH,AH, feeling watched by AI and technologywatching him. Reports partner is angry at him and there are times he does not recall why-what he did said or how his behavior influenced this. By hx reports Haldol caused anger and irritablity and tremor- will place under adverse responses in allergy section. Past Psychiatric History: IP: Several OP: None currently Trials: Several denies hx of SA/SIB. Subjective Subjective Medication Compliance: Intermittent Side effects from medications: No Review of Systems Medical Review of Systems: unchanged Review of Systems Review of Systems Denies Mental Status Exam Mental Status Exam Patient Appearance: Fatigued and Disheveled Patient Orientation: Person, Place and Situation Level of Consciousness: Restless and Alert Patient Behavior: Talkative, Restless, Anxious, Distractible and Good Eye Contact Mood Description: Withdrawn, Anxious, Labile, Nervous and Apprehensive Affect Description: Labile Patient Cognition Impaired: No Ability to Follow Directions: Good Speech Pattern: Spontaneous Speech Memory Description: Episodic Impaired Hallucinations: Auditory and Visual Delusions: Paranoid Ideation Perceptual Disturbances: Depersonalization and Derealization Thought Process: Racing and Distracted Thought Content: positive for Racing, positive for Circumstantial, positive for Suicidal Ideation (not currently) and positive for Homicidal Ideation (not currently) Depressive Symptoms: Increased Anxiety, Insomnia, Increased Irritability and Difficulty Sleeping Judgement: Fair Assessment and Plan Assessment & Plan (1) PTSD (post-traumatic stress disorder): Status: Acute Code(s): F43.10 - Post-traumatic stress disorder, unspecified (2) Schizoaffective disorder, bipolar type: Status: Acute Code(s): F25.0 - Schizoaffective disorder, bipolar type Plan Schizoaffective Disorder, Bipolar Type; PTSD Depakote, Klonopin, Olanzapine. Will offer weekly meetings and as needed meetings until pt reports relief of sx. Will use ER, Crisis as needed 04/16/25: Pt called, did not attend appt. Will continue regime and reschedule. Medications: New olanzapine 10 mg PO BID 14 tabs 0RF clonazepam (Klonopin) administer 30 minutes before bedtime 1 mg PO BID 14 tabs 0RF divalproex ER (Depakote ER) 500 mg PO BID 14 tabs 0RF Discontinued haloperidol Discontinued Reason: Doctor's Order 5 mg PO TID 30 days 90 tabs 0RF quetiapine Discontinued Reason: Doctor's Order 100 mg PO BEDTIME 30 days 30 tabs 0RF clonazepam Discontinued Reason: Doctor's Order 1 mg PO BEDTIME 30 days 30 tabs 0RF Counseling and coordination of Care Medication management counseling: Effectiveness, Side effects, Dosing range, Duration, Drug interaction and Adherence Details: I spent [] minutes reviewing the record, seeing the patient and documenting in the medical record. Counseling provided to the patient/caregiver as outlined below. Addressed patient/caregiver concerns regarding current medication regime including effective adherence. Addressed patient/caregiver concerns regarding diagnosis and prognosis including accuracy of diagnosis, prognosis over time, impact of diagnosis. Addressed patient/caregiver concerns regarding impact of recent stressors. [facility] Medical History Restlessness Schizophrenia PTSD (post-traumatic stress disorder) Screening examination for STI Syncopal episodes Major depression with psychotic features Generalized anxiety disorder Surgical History History of dental surgery History of hand surgery History of lung surgery Family History Mother Substance use disorder Father Substance use disorder Other Epilepsy Mental health disorder Social History Household Members: None Housing: Homeless Do you presently have visiting nurse or other home services: No Alcohol intake: current Alcohol intake frequency: holidays/special occasions only Patient Tobacco Use Status: Current everyday Tobacco user Tobacco use type: Cigarette (1 or 2 single a week) Cigarette Packs Per Day: 0.10 Cigarettes Per Day: 2 Years Smoked: 30 e-Cigarette/Vaping Use: Never Used Second Hand Smoke Exposure: Yes Substance Use Type: Marijuana service: No Current occupational status: unemployed Sexual orientation: Straight/Heterosexual Cognitive needs: No Hearing needs: No Vision needs: No Social History: homeless, single. no kids. unemployed. Substance History: utox positive for marijuana, cocaine and benzodiazepines. Trauma History: yes Coding Level of Care Code Est Pt Level 3 (38111) Diagnoses PTSD (post-traumatic stress disorder) F43.10 Schizoaffective disorder, bipolar type F25.0
== END 2025-04-11 12:11 | disposition home or self-care (01) ==
LOC: HO.HOP 10:53
PROVIDERS: PCP Internal Medicine; Visit Provider Clinical Nurse Specialist Psychiatric/Mental Health, Adult
DX: F43.10 Post-traumatic stress disorder, unspecified (principal); F25.0 Schizoaffective disorder, bipolar type
CPT/HCPCS: 99213

== ENCOUNTER → 2025-04-11 10:53 | Outpatient (BNVA) | payer OTHER, SELFPAY | PROVIDERS: PCP Internal Medicine; Visit Provider Clinical Nurse Specialist Psychiatric/Mental Health, Adult | DX: F43.10 Post-traumatic stress disorder, unspecified (principal); F25.0 Schizoaffective disorder, bipolar type | CPT/HCPCS: 99212 ==

== ENCOUNTER 2025-05-01 13:44 | Outpatient (AMB) | payer OTHER, SELFPAY ==
--- NOTE | 2025-05-01 13:51 | A.OFFPSYCH_ITS ---
Intake Intake Visit Reasons: follow up Allergies adhesive tape Allergy (Intermediate, Verified 04/03/25 15:40) Hives trazodone Allergy (Mild, Verified 04/03/25 15:40) Hallucinations haloperidol (From Haldol) Adverse Reaction (Intermediate, Verified 05/22/25 13:42) tremor, feels more irritable nabumetone Adverse Reaction (Intermediate, Verified 04/03/25 15:40) blood in stool Medication List - Last Reconciled 05/01/25 by Marion Borrego APRN clonazepam (Klonopin) 1 mg PO BID divalproex ER (Depakote ER) 500 mg PO BID olanzapine 10 mg PO BID HPI- Psychiatric Chief Complaint: follow up HPI Narrative: Reports anxiety, lights bother my eyes (not a new sx, present for ~1 year). Able to recall what he dreams. Feels jumpy at times, reports sleep 4-5 hours a night, states he could use more sleep. VH+ AH+ talking with vents, staring at air conditioner. AH never stops he reports. Holidays currently are overwhelming. Fears hurting others when feeling irritated, in groups or crowds that are loud. Denies HI, SI. Reports partner is very helpful and grounding for him. Conflicts with father, brother, sister. Reports increase in appetite with medications, not currently a problem. Discussed possible sx akathesia, will trial benztropine. Will increase Valproate to 750 mg bid and increase Olanzapine to 15 mg bid Willing to do lab work. Past Psychiatric History: IP: Several OP: None currently Trials: Several denies hx of SA/SIB. Subjective Subjective Medication Compliance: Yes Side effects from medications: Yes (?akathesis) Review of Systems Medical Review of Systems: unchanged Review of Systems Review of Systems denies Mental Status Exam Mental Status Exam Patient Appearance: Fatigued Patient Orientation: Person, Place and Situation Level of Consciousness: Alert Patient Behavior: Talkative Mood Description: Constricted Affect Description: Constricted Patient Cognition Impaired: No Ability to Follow Directions: Good Speech Pattern: Spontaneous Speech Memory Description: Episodic Impaired Hallucinations: Auditory Delusions: Paranoid Ideation Perceptual Disturbances: Depersonalization and Derealization Thought Process: Rumination Thought Content: positive for Circumstantial and positive for Tangential Depressive Symptoms: Difficulty Sleeping, Thoughts of /Suicide (denies) and Difficulty Concentrating Judgement: Fair Assessment and Plan Assessment & Plan (1) Schizoaffective disorder, bipolar type: Status: Acute Code(s): F25.0 - Schizoaffective disorder, bipolar type (2) PTSD (post-traumatic stress disorder): Status: Acute Code(s): F43.10 - Post-traumatic stress disorder, unspecified Plan Benztropine trial Increase Valproate to 750 mg bid Increase Olanzapine to 15 mg bid Continue Klonopin Diagnostics Medications: New benztropine 1 mg PO BID 14 tabs 0RF Changed From divalproex ER 500 mg PO BID 14 tabs 0RF To divalproex ER (Depakote ER) 750 mg (1.5 x 500 mg) PO BID 21 tabs 0RF From olanzapine 10 mg PO BID 14 tabs 0RF To olanzapine 15 mg (1.5 x 10 mg) PO BID 21 tabs 0RF Refilled clonazepam (Klonopin) administer 30 minutes before bedtime 1 mg PO BID 14 tabs 0RF Orders: Orders Valproate 05/01/25 F25.0 - Schizoaffective disorder, bipolar type Comprehensive Met. Panel 7 Days F25.0 - Schizoaffective disorder, bipolar type Complete Blood Count Auto Diff 7 Days F25.0 - Schizoaffective disorder, bipolar type Counseling and coordination of Care Medication management counseling: Effectiveness, Side effects, Dosing range, Duration, Drug interaction and Adherence Details: I spent [] minutes reviewing the record, seeing the patient and documenting in the medical record. Counseling provided to the patient/caregiver as outlined below. Addressed patient/caregiver concerns regarding current medication regime including effective adherence. Addressed patient/caregiver concerns regarding diagnosis and prognosis including accuracy of diagnosis, prognosis over time, impact of diagnosis. Addressed patient/caregiver concerns regarding impact of recent stressors. [facility] Medical History Restlessness Schizophrenia PTSD (post-traumatic stress disorder) Screening examination for STI Syncopal episodes Major depression with psychotic features Generalized anxiety disorder Surgical History History of dental surgery History of hand surgery History of lung surgery Family History Mother Substance use disorder Father Substance use disorder Other Epilepsy Mental health disorder Social History Household Members: None Housing: Homeless Do you presently have visiting nurse or other home services: No Alcohol intake: current Alcohol intake frequency: holidays/special occasions only Patient Tobacco Use Status: Current everyday Tobacco user Tobacco use type: Cigarette (1 or 2 single a week) Cigarette Packs Per Day: 0.10 Cigarettes Per Day: 2 Years Smoked: 30 e-Cigarette/Vaping Use: Never Used Second Hand Smoke Exposure: Yes Substance Use Type: Marijuana service: No Current occupational status: unemployed Sexual orientation: Straight/Heterosexual Cognitive needs: No Hearing needs: No Vision needs: No Social History: homeless, single. no kids. unemployed. Substance History: utox positive for marijuana, cocaine and benzodiazepines. Trauma History: yes Coding Level of Care Code Est Pt Level 3 (10002) Diagnoses Schizoaffective disorder, bipolar type F25.0 PTSD (post-traumatic stress disorder) F43.10
== END 2025-05-01 14:13 | disposition home or self-care (01) ==
LOC: HO.HOP 13:44
PROVIDERS: PCP Internal Medicine; Visit Provider Clinical Nurse Specialist Psychiatric/Mental Health, Adult
DX: F25.0 Schizoaffective disorder, bipolar type (principal); F43.10 Post-traumatic stress disorder, unspecified
CPT/HCPCS: 99213

== ENCOUNTER → 2025-05-01 13:44 | Outpatient (BNVA) | payer OTHER, SELFPAY | PROVIDERS: PCP Internal Medicine; Visit Provider Clinical Nurse Specialist Psychiatric/Mental Health, Adult | DX: F25.0 Schizoaffective disorder, bipolar type (principal); F43.10 Post-traumatic stress disorder, unspecified; Z79.899 Other long term (current) drug therapy; Z71.89 Other specified counseling | CPT/HCPCS: 99212 ==